=== PATIENT | female | born 1980 | race Hispanic/Latino ===

== ENCOUNTER 2017-04-16 13:38 | Outpatient (CLI) | payer MEDICARE, MEDICAID ==
[~2017-04-16 13:38] MED LIST: Gadobenate Dimeglumine 529 MG/1 ML (20ML VIAL) ONE
--- NOTE | 2017-04-16 16:25 | MRI ---
MRI LUMBAR SPINE WITH AND WITHOUT CONTRAST: 04/16/17 Multiplanar and multisequential imaging lumbar spine obtained. HISTORY: Lumbar radiculopathy. Low back pain. Radiation to the left leg. History of microdiscectomy in 2011. COMPARISON: Comparison made to MRI of lumbar spine dated 06/07/11. That exam revealed focal disc protrusion paracentrally to the left at L5-S1. FINDINGS: The lumbar vertebral bodies maintain height and alignment. Degenerative changes are prominent at the L2-3 level. There is loss of disc space and there are degenerative end plate changes at this level an d anterior hypertrophic spurring at this level. The degenerative changes at this level have progresse d since 2012. There is also degenerative disc changes at L5-S1 with loss of disc space and mild degenerative end pl ate changes and hypertrophic change. Evidence of posterior laminectomy on the left at this level. At L1-2, no disc bulge or protrusion. No central canal or foraminal stenosis. At L2-3, degenerative disc changes as discussed above. Mild diffuse disc bulge, slightly more promine nt than on the prior study. This abuts and mildly flattens the thecal sac and is associated with mild facet arthrosis. Very mild central canal stenosis. At L3-4, no significant disc bulge or protrusion. No central canal or foraminal stenosis. At L4-5, minimal disc bulge. Mild facet arthrosis and hypertrophy. Mild central canal stenosis. No si gnificant foraminal stenosis. At L5-S1, there is abnormal signal in the anterior spinal canal on the left which does show enhanceme nt suggesting postoperative scar from the prior discectomy. This signal does compress the thecal sac and also appears to displace the traversing left S1 nerve root. There is a disc osteophyte complex pr ojecting laterally to the left which appears to contact the exiting left L5 nerve root. IMPRESSION: Discectomy changes on the left at L5-S1. Signal in the anterior spinal canal on the left shows enhanc ement consistent with postoperative scar. This signal however, does mildly displaced the traversing l eft S1 nerve root. In addition, there is a disc osteophyte complex projecting laterally to the left a t this level which appears to contact the exiting left L5 nerve root. Other findings as described above. POS: [facility]
== END 2017-04-16 13:39 | disposition home or self-care (01) ==
LOC: TBSIIMAG 13:38
PROVIDERS: ATTEND Neurological Surgery
DX: M54.16 Radiculopathy, lumbar region (principal); M25.78 Osteophyte, vertebrae; R93.7 Abnormal findings on diagnostic imaging of other parts of musculoskeletal system
CPT/HCPCS: 72158; A9579

== ENCOUNTER 2017-05-12 06:20 | Inpatient (IN) | payer MEDICARE, OTHER ==
[2017-05-08 15:00] VITALS: BMI 34.9
[2017-05-12] MEDS ORDERED: Sodium Chloride 0.9% 10 ML ONE (06:26)
[2017-05-12] MEDS ORDERED: Thrombin 5000 UNITS/5 ML VIAL ONE (06:26)
[2017-05-12] MEDS ORDERED: Midazolam HCl 2 mg/2 ml Vial ONE (06:33)
[2017-05-12] MEDS ORDERED: Fentanyl 100 MCG/2 ML VIAL ONE ×2 (06:33→09:03)
[2017-05-12 06:51] LABS: #Basophils 0.1 thou/uL (0.0-0.2); #Eosinphils 0.7 thou/uL (0.0-0.7); #Lymphocytes 4.7 thou/uL (1.20-3.40); #Monocytes 0.5 thou/uL (0.11-0.59); #Neutrophils 7.3 thou/uL (1.40-6.50); %Basophils 0.9 % (0.0-1.0); %Eosinophils 5.4 % (0.0-10.0); %Lymphocytes 34.9 % (21.0-51.0); %Monocytes 3.8 % (0.0-10.0); Hemoglobin 13.8 g/dL (12.0-16.0); Mean Corpuscular HGB CONC 35.4 g/dL (32.0-36.0); Mean Corpuscular Hemoglobin 31.9 pg (27.0-31.0); Mean Corpuscular Volume 89.9 fl (81.0-99.0); Platelet Count 168 thou/uL (130-400); Red Blood Cell (RBC) Count 4.33 mill/uL (4.20-5.40); White Blood Cell (WBC) Count 13.3 thou/uL (4.8-10.8)
[2017-05-12] MEDS ORDERED: CEFAZOLIN/Water 2 GM/20 ML SYRINGE ONE (07:04)
[2017-05-12 07:05] LABS: BHCG - Serum Negative (NEGATIVE); Pregs Control Background? CLEAR/WHITE (CLR/WHITE); Pregs Control Bar Appear? YES (CONTROL BAR)
[2017-05-12 07:13] LABS: Anion Gap 11 mmol/L (10-20); BUN (Urea Nitrogen) 17 mg/dL (7.0-18.7); Calc. Creatinine Clearance 153 mL/min (70-130); Calcium 8.7 mg/dL (7.8-10.44); Carbon Dioxide 27 mmol/L (22-29); Chloride 101 mmol/L (98-107); Estimated GFR-MDRD 75; Glucose 223 mg/dL (70-105); Potassium 3.4 mmol/L (3.5-5.1); Sodium 136 mmol/L (136-145)
[2017-05-12] MEDS ORDERED: Morphine 4 MG/ML VIAL ONE ×2 (09:24→09:39)
--- NOTE | 2017-05-12 09:37 | OP ---
DATE OF PROCEDURE: 05/12/2017 SURGEON: Rambo Gray M.D. REGISTERED NURSE SURGICAL SERVICES: None. PROCEDURE: Left L5-S1 laminectomy, facetectomy, foraminotomy, interbody arthrodesis, intravertebral biomechanical device, local morselized autograft, demineralized bone matrix, posterolateral arthrodes is, and pedicle screw instrumentation left L5-S1. PROCEDURE IN DETAIL: The patient was brought into the operating room and intubated. She was rolled in the prone position on gel-filled chest rolls. Incision made exposing L5 and S1 and our level was confirmed by x-ray. We identified the previous scar in the left L5-S1 hemilaminectomy. We performed a left facetectomy, laminectomy, and foraminotomy and then removed bulging intervertebral disk mater ial, completely decompressing left S1 nerve root. The disk itself was incised and debrided completel y and the bony endplates decorticated for the purpose of arthrodesis. An appropriately-sized intrave rtebral biomechanical PEEK device was brought into the field, filled with demineralized bone and loca l morselized autograft and tapped into place securely at L5-S1. Next, pedicle screws were brought in to the field and filled and placed at left L5 and left S1 using lateral fluoroscopic guidance and the positioning was confirmed with x-ray. A foster was secured between the screws, connected by nuts, whic h were final tightened. The wound was then extensively irrigated, immaculate hemostasis was secured. A combination of demineralized bone matrix, local morselized autograft was laid over the lamina and posterolateral surfaces for the purpose of arthrodesis. Vancomycin powder was applied and the wound was then closed in anatomic layers.
[2017-05-12] MEDS ORDERED: PHENYLEPHRINE-NS 100 MCG/ML 10 ML SYRINGE ONE (10:36)
[2017-05-12] MEDS ORDERED: Lidocaine 1% PF 5 ML VIAL ONE (10:36)
[2017-05-12] MEDS ORDERED: Ketorolac Tromethamine 30 MG/ML VIAL ONE (10:36)
[2017-05-12] MEDS ORDERED: ePHEDrine/0.9% NaCl/PF SYRINGE 50 mg/10 ml ONE (10:36)
[2017-05-12] MEDS ORDERED: PROPOFOL 200 MG/20 ML VIAL ONE (10:36)
[2017-05-12] MEDS ORDERED: diphenhydrAMINE 50 MG/ML VIAL ONE (10:36)
[2017-05-12] MEDS ORDERED: Ondansetron HCl/PF 4 MG/2 ML Vial ONE (10:36)
[2017-05-12] MEDS ORDERED: Glycopyrrolate 0.2 MG/ML 5 ML SYRINGE ONE (10:36)
[2017-05-12] MEDS ORDERED: HYDROcodone/Acetaminophen 5/325 mg Tablet ONE (11:00)
--- NOTE | 2017-05-12 22:08 | EKG ---
Test Reason : PREOP Blood Pressure : / mmHG Vent. Rate : 079 BPM Atrial Rate : 079 BPM P-R Int : 154 ms QRS Dur : 082 ms QT Int : 400 ms P-R-T Axes : 048 007 001 degrees QTc Int : 458 ms Normal sinus rhythm Minimal voltage criteria for LVH, may be normal variant Possible Inferior infarct , age undetermined Abnormal ECG When compared with ECG of 13-FEB-2012 10:16, No significant change was found Confirmed by WILLY HOUSER M.D. ([id number]) on 05/12/2017 10:08:31 PM Referred By: ZAIN Confirmed By:WILLY HOUSER M.D.
== END 2017-05-12 11:30 | disposition home or self-care (01) | DRG 460 ==
LOC: SURG A 06:20
PROVIDERS: ADMIT Neurological Surgery; ATTEND Neurological Surgery
PROC: 0SG30AJ Fusion of Lumbosacral Joint with Interbody Fusion Device, Posterior Approach, Anterior Column, Open Approach (ICD-10-PCS; principal; 2017-05-12)
PROC: 0ST40ZZ Resection of Lumbosacral Disc, Open Approach (ICD-10-PCS; 2017-05-12)
DX: M51.17 Intervertebral disc disorders with radiculopathy, lumbosacral region (principal); G62.9 Polyneuropathy, unspecified; M54.16 Radiculopathy, lumbar region; E11.9 Type 2 diabetes mellitus without complications; E66.9 Obesity, unspecified; F32.9 Major depressive disorder, single episode, unspecified; Z68.35 Body mass index [BMI] 35.0-35.9, adult; F17.210 Nicotine dependence, cigarettes, uncomplicated; E78.5 Hyperlipidemia, unspecified
CPT/HCPCS: 36415; 76001; 80048; 84703; 85025; 93005; 93010; 96374; A4216; C1713; C1768; J0131; J1200; J1885; J2001; J2250; J2270; J2405; J2704; J3010; J3370; J3490

== ENCOUNTER 2017-05-27 11:06 | Outpatient (CLI) | payer MEDICARE, MEDICAID ==
--- NOTE | 2017-05-27 13:23 | RAD ---
LUMBAR SPINE TWO VIEWS: History: Follow up to surgery. Comparison: 04-05-07 plain film examination, 04-26-17 MRI study. FINDINGS: Patient has had placement of left unilateral pedicle screw at the L5-S1 level. Markers of disc implan t are in the confines of the narrowed L5-S1 disc level. There is marked disc narrowing also seen at L 2-3. Pedicles are intact. Minimal scoliotic change convex to the left. IMPRESSION: Post-operative changes with left unilateral pedicle screws placed at L5-S1. POS: [facility]
== END 2017-05-27 11:07 | disposition home or self-care (01) ==
LOC: TBSIIMAG 11:06
PROVIDERS: ATTEND Neurological Surgery
DX: M54.16 Radiculopathy, lumbar region (principal); Z98.1 Arthrodesis status
CPT/HCPCS: 72100

== ENCOUNTER 2017-07-16 14:21 | Inpatient (IN) | payer MEDICARE, MEDICAID ==
[2017-07-16 14:41] LABS: #Basophils 0.1 thou/uL (0.0-0.2); #Lymphocytes 0.8 thou/uL (1.20-3.40); #Monocytes 0.2 thou/uL (0.11-0.59); #Neutrophils 6.1 thou/uL (1.40-6.50); %Basophils 0.8 % (0.0-1.0); %Eosinophils 0.2 % (0.0-10.0); %Lymphocytes 10.6 % (21.0-51.0); %Monocytes 2.7 % (0.0-10.0); %Neutrophils 85.7 % (42.0-75.0); Mean Corpuscular HGB CONC 33.3 g/dL (32.0-36.0); Mean Corpuscular Hemoglobin 31.6 pg (27.0-31.0); Mean Corpuscular Volume 95.2 fl (81.0-99.0); Mean Platelet Volume 10.6 fL (7.4-10.4); Platelet Count 99 thou/uL (130-400); RBC Distribution Width 12.6 % (11.5-14.5); Red Blood Cell (RBC) Count 1.88 mill/uL (4.20-5.40); White Blood Cell (WBC) Count 7.2 thou/uL (4.8-10.8)
[2017-07-16] MEDS ORDERED: Dexamethasone 10 MG/ML VIAL ONE (14:41)
[2017-07-16] MEDS ORDERED: Albuterol Sulfate 2.5 mg/3 ml Neb ONE (14:43)
[2017-07-16] MEDS ORDERED: Albuterol Sulfate 2.5 mg/0.5 ml Neb ONE ×3 (14:43)
[2017-07-16 14:47] LABS: INR-International Normal Ratio 1.4; PTT 32.4 SEC (22.9-36.1)
[2017-07-16 14:52] LABS: pH, Arterial 7.23 (7.35-7.45)
[2017-07-16 14:52] LABS: ALT (SGPT) 295 U/L (8-55); AST (SGOT) 656 U/L (5-34); Albumin 1.1 g/dL (3.5-5.0); Alkaline Phosphatase 48 U/L (40-150); Anion Gap 7 mmol/L (10-20); BUN (Urea Nitrogen) 11 mg/dL (7.0-18.7); Bilirubin, Total 0.2 mg/dL (0.2-1.2); Calc. Creatinine Clearance 0 mL/min (70-130); Estimated GFR-MDRD Greater than 90; Globulin 1.2 g/dL (2.4-3.5); Glucose 404 mg/dL (70-105); Protein, Total 2.3 g/dL (6.0-8.3); Sodium 142 mmol/L (136-145)
[2017-07-16 14:53] LABS: Actual Bicarbonate (HCO3a) 30.7 mEq/L (22-28); Analyzer IN Cardio ER; Base Excess (BEa) 1.1 mEq/L (-2.0 to +3.0); CO2 Tension 75.3 mmHg (35.0-45.0); Calcium, Ionized 1.2 mmol/L (1.12-1.30); Hemoglobin (Hb) 13.3 g/dL (12.0-16.0); O2 Tension (PaO2) 83.1 mmHg (80.0-100.0); Puncture Site RRA
[2017-07-16 14:54] LABS: ALV-art Gradient 535.775 (0-20)
[2017-07-16 14:56] LABS: Calcium 2.8 mg/dL (7.8-10.44); Carbon Dioxide 9 mmol/L (22-29); Chloride 128 mmol/L (98-107); Potassium 1.7 mmol/L (3.5-5.1)
[2017-07-16 15:05] LABS: Bilirubin Negative (Negative); Blood, Urine Moderate (Negative); Clarity CLOUDY (Clear); Glucose, Urine (Dipstick) >=1000 mg/dL (Negative); Leukocyte Negative (Negative); Nitrite Negative (Negative); Protein, Urine (Dipstick) 100 mg/dL (Neg-Trace); Specific Gravity, Urine 1.023 (1.002-1.036); Urobilinogen 0.2 mg/dL (0.2-1.0)
[2017-07-16 15:05] LABS: Acetaminophen Less than 6.0 mcg/mL (10.0-30.0); Alcohol Less than 10 mg/dL (Less than 10); CK (CPK) 157 U/L (29-168); Salicylate Less than 8.0 mg/dL (15.0-30.0)
[2017-07-16 15:06] LABS: Pathc Cast-AUWi Flag 0.58 (0-2.49); RBC/HPF 0-3 HPF (0-3)
[2017-07-16 15:09] LABS: BHCG - Serum Negative (NEGATIVE); Pregs Control Background? CLEAR/WHITE (CLR/WHITE); Pregs Control Bar Appear? YES (CONTROL BAR)
[2017-07-16 15:09] LABS: CKMB 1.2 ng/mL (0-6.6); Troponin I 0.035 ng/mL (< 0.028)
[2017-07-16 15:15] LABS: Amphetamine Not Detected (NotDetected); Barbiturates Screen Not Detected (NotDetected); Benzodiazepine Screen Not Detected (NotDetected); Cocaine Metabolite Screen Not Detected (NotDetected); Medtox Control Line Valid? VALID (VALID); Medtox Reader # READER 1; Methadone Not Detected (NotDetected); Methamphetamine Not Detected (NotDetected); Opiate Screen Not Detected (NotDetected); Oxycodone Screen Not Detected (NotDetected); Phencyclidine (PCP) Not Detected (NotDetected); THC/Cannabinoid Screen Not Detected (NotDetected); Tricyclic Screen Not Detected (NotDetected)
--- NOTE | 2017-07-16 15:23 | RAD ---
CHEST ONE VIEW: HISTORY: A 36-year-old female with a history of respiratory distress and high blood sugar. COMPARISON: 07/13/2017 FINDINGS: Monitor leads overly the chest. NG and endotracheal tubes are in satisfactory locations. There are some confluent parenchymal changes in the right upper lobe and right lower lobe, and probable right p leural effusion, as well as patchy alveolar and interstitial parenchymal changes in the perihilar reg ions bilaterally, new from prior study (evidence for bilateral pneumonia). Heart size is at least lia rderline enlarged. IMPRESSION: Interval development of alveolar confluent parenchymal changes in the right upper lobe and right lowe r lobe and patchy alveolar and interstitial opacities in both lungs, suspicious for developing bilate ral pneumonia with probable associated with pleural effusion. Continued short-term followup for clearing. POS: [facility]
[2017-07-16 15:26] LABS: Bacteria/HPF 1+ HPF (None Seen)
[2017-07-16] MEDS ORDERED: Magnesium Sulfate 2 GM/100 ML BAG ONE (15:26)
[2017-07-16 15:27] LABS: Hyaline Casts/LPF 0-3 HYALINE CAST LPF (0-3 Hyaline); Renal Epithelial None Seen HPF (0-3); Transitional Epithelial NONE SEEN HPF (0-3)
[2017-07-16] MEDS ORDERED: Norepinephrine 8 MG/0.9% NS 250 ML ONE (15:30)
--- NOTE | 2017-07-16 15:30 | CT ---
BRAIN CT WITHOUT IV CONTRAST: HISTORY: A 36-year-old female with a history of respiratory distress and high blood sugar, with three attempts at intubation. FINDINGS: No focal mass or midline shift. No intraaxial or extraaxial hemorrhage. The sinuses and mastoids ar e clear of acute process. There are some scattered chronic white matter ischemic changes. There is some sinus mucosal disease, as well as fluid, within the ethmoid, maxillary, and sphenoid sinuses. T he mastoids appear clear. IMPRESSION: 1. Fluid and sinus mucosal disease involving the ethmoid, maxillary, and sphenoid sinuses. The mast oids are clear. 2. Atrophy and chronic white matter ischemic change without mass or bleed. POS: [facility]
[2017-07-16 15:57] LABS: Actual Bicarbonate (HCO3a) 20.9 mEq/L (22-28); Base Excess (BEa) -6.6 mEq/L (-2.0 to +3.0); CO2 Tension 50.6 mmHg (35.0-45.0); Hematocrit-ABG 40.5 % (36.0-47.0); O2 Tension (PaO2) 79.3 mmHg (80.0-100.0); pH, Arterial 7.24 (7.35-7.45)
[2017-07-16 15:58] LABS: Analyzer IN Cardio ER; Puncture Site RBA
[2017-07-16] MEDS ORDERED: Cefepime 2 GM in Sodium Chloride 0.9% 100 ML IVPB ONE (16:00)
[2017-07-16] MEDS ORDERED: Sodium Chloride 0.9% 1,000 ML IV PRN ×8 (16:09→17:28)
[2017-07-16] MEDS ORDERED: Dextrose 5 %-0.45 % NaCl 1,000 ML IV PRN ×2 (16:09→17:28)
[2017-07-16] MEDS ORDERED: CCU Electrolyte Replacement 1 EACH IVPB ONE ×2 (16:09→17:28)
[2017-07-16] MEDS ORDERED: Potassium Phosphate 12 MMOL in Sodium Chloride 0.9% 250 ML 250 ML IV PRN (16:15)
[2017-07-16] MEDS ORDERED: Potassium Chloride 40 MEQ in Premix Bag 1 BAG IVPB PRN (16:15)
[2017-07-16] MEDS ORDERED: Potassium Chloride 40 MEQ in Sodium Chloride 0.9% 250 ML 250 ML IVPB PRN (16:15)
[2017-07-16] MEDS ORDERED: Potassium Phosphate 15 MMOL in Sodium Chloride 0.9% 250 ML 250 ML IV PRN (16:15)
[2017-07-16] MEDS ORDERED: Potassium Phosphate 9 MMOL in Sodium Chloride 0.9% 100 ML IVPB PRN (16:15)
[2017-07-16] MEDS ORDERED: Potassium Chloride 20 MEQ TAB PO PRN (16:15)
[2017-07-16] MEDS ORDERED: Magnesium 2 GM/NS 0.9% 100 ML 2 GM in Premix Bag 1 BAG IVPB PRN (16:15)
[2017-07-16] MEDS ORDERED: CCU ELECTROLYTE REPLACEMENT PROTOCOL FS PRN (16:15)
[2017-07-16] MEDS ORDERED: Magnesium Oxide 400 MG TAB PO PRN ×2 (16:15)
[2017-07-16 16:29] LABS: #Eosinphils 0.1 thou/uL (0.0-0.7); #Lymphocytes 1.1 thou/uL (1.20-3.40); #Monocytes 0.3 thou/uL (0.11-0.59); #Neutrophils 10.8 thou/uL (1.40-6.50); %Basophils 0.2 % (0.0-1.0); %Eosinophils 0.6 % (0.0-10.0); %Monocytes 2.6 % (0.0-10.0); %Neutrophils 87.7 % (42.0-75.0); Hemoglobin 12.3 g/dL (12.0-16.0); Mean Corpuscular HGB CONC 32.5 g/dL (32.0-36.0); Mean Corpuscular Hemoglobin 31.5 pg (27.0-31.0); Mean Corpuscular Volume 96.6 fl (81.0-99.0); Platelet Count 171 thou/uL (130-400); RBC Distribution Width 13.1 % (11.5-14.5); Red Blood Cell (RBC) Count 3.92 mill/uL (4.20-5.40); White Blood Cell (WBC) Count 12.3 thou/uL (4.8-10.8)
[2017-07-16 16:39] LABS: ALT (SGPT) 863 U/L (8-55); AST (SGOT) 2115 U/L (5-34); Albumin 3.1 g/dL (3.5-5.0); Alkaline Phosphatase 135 U/L (40-150); Anion Gap 23 mmol/L (10-20); BUN (Urea Nitrogen) 25 mg/dL (7.0-18.7); Bilirubin, Total 0.6 mg/dL (0.2-1.2); Calc. Creatinine Clearance 0 mL/min (70-130); Calcium 8.5 mg/dL (7.8-10.44); Carbon Dioxide 20 mmol/L (22-29); Chloride 93 mmol/L (98-107); Estimated GFR-MDRD 20; Globulin 3.5 g/dL (2.4-3.5); Glucose 826 mg/dL (70-105); Potassium 3.6 mmol/L (3.5-5.1); Protein, Total 6.6 g/dL (6.0-8.3); Sodium 132 mmol/L (136-145)
--- NOTE | 2017-07-16 17:03 | HP ---
PRIMARY CARE PROVIDER: Previously was Dr. Nancy Tee, Referred to the [facility] by [facility]. HISTORY OF PRESENT ILLNESS: The patient was found down today, brought to the emergency room where jhonatan castle was found to be in extremis, sedated and intubated. She gives a history of 2 days of having a cold -like illness. She was seen in the emergency room 2 days ago with asthma and cough. The patient was treated for asthma, improved, went home. She is currently intubated, unresponsive. PAST MEDICAL HISTORY: Pertinent for diabetes mellitus type 2, asthma, history of thyroid CA post I-1 31 ablation, bipolar illness, hypertension, cholecystectomy. CURRENT MEDICATIONS: Atrovent inhaler, levothyroxine 125 mcg a day, Humulin U-500 concentrated 30 mL subq 3 times a day, gabapentin 800 mg 3 times a day, Trileptal 600 mg 2 a day, fluoxetine 20 mg a da y, Buspar 30 mg a day. ALLERGIES: No known drug allergies. FAMILY HISTORY: Positive for diabetes in mother, grandmother, and aunt. SOCIAL HISTORY: , smokes tobacco. Denies alcohol. CODE STATUS: FULL. REVIEW OF SYSTEMS: Unobtainable due to her intubated, unresponsive status. PHYSICAL EXAMINATION: VITAL SIGNS: Blood pressure 100/70 on pressors, pulse 100, respirations on vent, temperature 98. HEENT: Reveals pupils equal, reactive. Negative doll's eyes. Sclerae white. Tympanic membranes cl ear. Nose is clear. Oral mucous membranes are dry. NECK: No jugular venous distention, adenopathy or thyromegaly. CHEST: Diffuse coarse breath sounds. Rales in all lung ayala, right greater than left. HEART: Regular rate and rhythm. First and second heart sounds are diminished. No murmurs were appr eciated. ABDOMEN: Soft, bowel sounds are normal. There is no hepatosplenomegaly, no mass, no rebound. EXTREMITIES: Reveal 1+ edema, no cyanosis or clubbing. PULSES: Carotid, radial, and femoral pulses palpable. Pedal pulses were not palpable. SKIN: She has a deep ulcer on the plantar surface of her right great toe with a dark eschar. She lima s evidence of amputation of her left great toe subtotally with an eschar on the end of it. Skin was otherwise warm and dry. HEME/LYMPH: Reveals no tender or swollen lymph nodes in axilla, inguinal or cervical area. NEUROLOGICAL: Face is symmetric. Negative doll's eyes. Pupils reactive. Deep tendon reflexes esse ntially absent. Toes neutral. Muscle tone normal. X-RAY FINDINGS: Chest x-ray done 3 days ago, borderline cardiomegaly, possible pulmonary vascular co ngestion, reviewed by me. Current chest x-ray heavily over penetrated, right upper lobe pneumonia, r ight lower lobe pneumonia, infiltrates on the left side, rotated, reviewed by me. LABORATORY DATA: White count 7.2, hemoglobin 6.0, platelet count 99,000. INR 1.48, PTT 32. Blood g as pH 7.23, pCO2 of 53 on 100% O2, 5 cm PEEP. Chemistry: Sodium 142, potassium 1.7, chloride 128, C O2 9, calcium is listed as 2.8. Lactic acid 3.4, AST 656, ALT 295. BNP 115. TSH 6.7. ADMITTING DIAGNOSES: Acute respiratory failure, hypoxic and hypercapnic diabetic ketoacidosis, bilat eral pneumonia, lactic acidosis, septic shock, bipolar syndrome, hypertension. I have discussed this case at length with Dr. Benson, who will manage the pneumonia and respiratory failure. Her laboratory is dramatically abnormal and there is some concern about it being unreliable CBC and c omprehensive lab profile have been reordered. I have not found the EKG yet to look at and will. She is on a DKA protocol with IV insulin and q.1 hour blood sugars. She is on piperacillin, Levaquin. Blood and urine cultures have been obtained. Electrolyte profile has been ordered. She is on 150 mL normal saline IV fluids. She is on frequent laboratories with basic metabolic profile, blood sugars . She is on ventilation sedation protocol. Prognosis is guarded. She will be on critical care unit , followed closely by myself and Dr. Benson. The situation has been discussed with the family.
[2017-07-16] MEDS ORDERED: Sodium Chloride 0.9% 1,000 ML IV SCH ×2 (17:28)
[2017-07-16] MEDS ORDERED: D5 1/2 NS w/20 mEq KCL 1,000 ML IV PRN (17:28)
[2017-07-16] MEDS ORDERED: Acetaminophen 650 MG Suppository PR PRN (17:28)
[2017-07-16] MEDS ORDERED: NS 0.9% w/ 20 MEQ KCL 1,000 ML IV PRN ×2 (17:28)
[2017-07-16] MEDS ORDERED: Ondansetron HCl/PF 4 MG/2 ML Vial IVP PRN (17:28)
[2017-07-16] MEDS ORDERED: Norepinephrine 8 MG/0.9% NS 250 ML IVPB SCH (17:28)
--- NOTE | 2017-07-16 18:08 | RAD ---
ONE VIEW CHEST: 07/16/17 COMPARISON: 07/16/17 at 2:46 p.m. HISTORY: Sepsis. FINDINGS: Redemonstration of endotracheal and nasogastric tube. Persistent opacification in the lung parenchyma . No significant interval change. IMPRESSION: No significant interval change. POS: [facility]
[2017-07-16 18:19] LABS: Band 15 % (5-11); Hemoglobin 12.7 g/dL (12.0-16.0); Lymphocytes 2 % (21-51); MDiff Complete? YES; Mean Corpuscular HGB CONC 32.8 g/dL (32.0-36.0); Mean Corpuscular Hemoglobin 31.5 pg (27.0-31.0); Mean Corpuscular Volume 96.2 fl (81.0-99.0); Mean Platelet Volume 10.6 fL (7.4-10.4); Monocytes 2 % (0-10); Neutrophil 80 % (42-75); PLT Morphology Comment Appears Adequate; Platelet Count 167 thou/uL (130-400); RBC Distribution Width 13.2 % (11.5-14.5); Reactive Lymphocytes 1 % (0-10); Red Blood Cell (RBC) Count 4.03 mill/uL (4.20-5.40); White Blood Cell (WBC) Count 12.4 thou/uL (4.8-10.8)
[2017-07-16 18:22] LABS: ALT (SGPT) 1047 U/L (8-55); AST (SGOT) 2840 U/L (5-34); Albumin 3.1 g/dL (3.5-5.0); Alkaline Phosphatase 140 U/L (40-150); Anion Gap 20 mmol/L (10-20); BUN (Urea Nitrogen) 23 mg/dL (7.0-18.7); Bilirubin, Total 0.7 mg/dL (0.2-1.2); Calc. Creatinine Clearance 57 mL/min (70-130); Calcium 8.3 mg/dL (7.8-10.44); Carbon Dioxide 18 mmol/L (22-29); Chloride 98 mmol/L (98-107); Estimated GFR-MDRD 23; Globulin 3.7 g/dL (2.4-3.5); Potassium 3.2 mmol/L (3.5-5.1); Protein, Total 6.8 g/dL (6.0-8.3); Sodium 133 mmol/L (136-145)
[2017-07-16] MEDS ORDERED: DISCONTINUE PREVIOUS NARCOTIC PAIN MEDICATIONS AND BENZODIAZEPINES FS SCH (18:26)
[2017-07-16] MEDS ORDERED: Propofol BOLUS 1,000 MG/100 ML VIAL IV PRN (18:26)
[2017-07-16] MEDS ORDERED: Morphine 4 MG/ML VIAL SLOW IVP PRN (18:26)
[2017-07-16] MEDS ORDERED: Fentanyl BOLUS 250 ML IVPB PRN (18:26)
[2017-07-16 18:36] LABS: Glucose 809 mg/dL (70-105)
[2017-07-16] MEDS: Piperacillin/Tazobactam 3.375 GM in Sodium Chloride 0.9% 100 ML IVPB SCH (18:53)
[2017-07-16] MEDS: Propofol 1,000 MG/100 ML VIAL IV PRN (18:53)
[2017-07-16 19:24] LABS: Lactic Acid 9.8 mmol/L (0.5-2.2)
[2017-07-16] MEDS: fentaNYL Citrate/PF 2,000 MCG in Sodium Chloride 0.9% 60 ML IV SCH (19:46)
[2017-07-16 19:48] LABS: Glucose 760 mg/dL (70-105)
[2017-07-16] MEDS ORDERED: Sodium Bicarb 50 MEQ/50 ML Abboject 8.4% SYRINGE ONE (20:00)
[2017-07-16] MEDS ORDERED: EPINEPHrine 1 MG/10 ML Abboject SYRINGE ONE (20:00)
[2017-07-16] MEDS ORDERED: Prevnar 13-Val Conj/PF 0.5 ML SYRINGE IM ONE (21:00)
[2017-07-16 21:06] LABS: Glucose Accucheck Confirmation 785 mg/dl (70-105)
[2017-07-16] MEDS: NS 0.9% w/ 20 MEQ KCL 1,000 ML IV PRN ×2 (21:12→23:27)
[2017-07-16 21:44] LABS: Anion Gap 17 mmol/L (10-20); BUN (Urea Nitrogen) 23 mg/dL (7.0-18.7); Calc. Creatinine Clearance 58 mL/min (70-130); Calcium 8.1 mg/dL (7.8-10.44); Carbon Dioxide 19 mmol/L (22-29); Chloride 103 mmol/L (98-107); Estimated GFR-MDRD 23; Potassium 3.4 mmol/L (3.5-5.1); Sodium 136 mmol/L (136-145)
[2017-07-16 21:53] LABS: Glucose 740 mg/dL (70-105)
[2017-07-16 22:08] LABS: Lactic Acid 9.6 mmol/L (0.5-2.2)
[2017-07-16 22:26] LABS: Glucose Accucheck Confirmation 767 mg/dl (70-105)
[2017-07-16 22:56] LABS: Actual Bicarbonate (HCO3a) 19.8 mEq/L (22-28); Base Excess (BEa) -6.5 mEq/L (-2.0 to +3.0); CO2 Tension 42.3 mmHg (35.0-45.0); Hematocrit-ABG 36.6 % (36.0-47.0); Hemoglobin (Hb) 11.4 g/dL (12.0-16.0); O2 Tension (PaO2) 86.8 mmHg (80.0-100.0); pH, Arterial 7.29 (7.35-7.45)
[2017-07-16 22:57] LABS: Calcium, Ionized 1.1 mmol/L (1.12-1.30); Puncture Site RRA
[2017-07-16 22:58] LABS: ALV-art Gradient 568.325 (0-20)
[2017-07-16] MEDS ORDERED: Sodium Chloride 0.9% 500 ML IV SCH (23:00)
[2017-07-16 23:36] LABS: Glucose Accucheck Confirmation 730 mg/dl (70-105)
--- NOTE | 2017-07-17 00:06 | PDOC.EVN ---
Event Note - Event Note Event Note: Pt with persistent hyperglycemia despite initiation of protocol Continue with IVF per protocol anion gap appears to be improving B hydroxybutarate is neg inc insulin gtt to 14U/hr since no bolus was given in ER continue serial accuchecks uptitrate as needed continue serial BMPs concern for progressive transaminitis and elev lactic acid US abd ? intra-abdominal pathology that is independent of patient's known sepsis continue to closely monitor +bs, soft nonttp abd on examination
[2017-07-17] MEDS: Piperacillin/Tazobactam 3.375 GM in Sodium Chloride 0.9% 100 ML IVPB SCH ×5 (00:18→23:42)
[2017-07-17 00:42] LABS: Anion Gap 15 mmol/L (10-20); BUN (Urea Nitrogen) 20 mg/dL (7.0-18.7); Calc. Creatinine Clearance 69 mL/min (70-130); Calcium 7.8 mg/dL (7.8-10.44); Carbon Dioxide 20 mmol/L (22-29); Chloride 109 mmol/L (98-107); Estimated GFR-MDRD 28; Potassium 3.8 mmol/L (3.5-5.1); Sodium 140 mmol/L (136-145)
[2017-07-17 00:46] LABS: Glucose 667 mg/dL (70-105)
[2017-07-17 01:39] LABS: Glucose Accucheck Confirmation 628 mg/dl (70-105)
[2017-07-17 02:48] LABS: Anion Gap 15 mmol/L (10-20); BUN (Urea Nitrogen) 19 mg/dL (7.0-18.7); Calc. Creatinine Clearance 73 mL/min (70-130); Calcium 8.1 mg/dL (7.8-10.44); Carbon Dioxide 21 mmol/L (22-29); Chloride 111 mmol/L (98-107); Estimated GFR-MDRD 30; Potassium 3.9 mmol/L (3.5-5.1); Sodium 143 mmol/L (136-145)
[2017-07-17 03:03] LABS: Glucose 579 mg/dL (70-105)
[2017-07-17 03:46] LABS: ALT (SGPT) 879 U/L (8-55); AST (SGOT) 1088 U/L (5-34); Albumin 2.8 g/dL (3.5-5.0); Alkaline Phosphatase 105 U/L (40-150); Anion Gap 13 mmol/L (10-20); BUN (Urea Nitrogen) 19 mg/dL (7.0-18.7); Bilirubin, Total 0.4 mg/dL (0.2-1.2); Calc. Creatinine Clearance 77 mL/min (70-130); Calcium 7.8 mg/dL (7.8-10.44); Carbon Dioxide 21 mmol/L (22-29); Chloride 113 mmol/L (98-107); Estimated GFR-MDRD 32; Globulin 3.2 g/dL (2.4-3.5); Glucose 526 mg/dL (70-105); Sodium 143 mmol/L (136-145)
[2017-07-17] MEDS: NS 0.9% w/ 20 MEQ KCL 1,000 ML IV PRN ×2 (04:00→07:14)
[2017-07-17 05:10] LABS: Lactic Acid 2.6 mmol/L (0.5-2.2)
[2017-07-17 05:41] LABS: Band 23 % (5-11); Hemoglobin 10.8 g/dL (12.0-16.0); Lymphocytes 13 % (21-51); MDiff Complete? YES; Mean Corpuscular HGB CONC 34.2 g/dL (32.0-36.0); Mean Corpuscular Volume 93.7 fl (81.0-99.0); Mean Platelet Volume 10.7 fL (7.4-10.4); Monocytes 1 % (0-10); Neutrophil 63 % (42-75); Platelet Count 153 thou/uL (130-400); Red Blood Cell (RBC) Count 3.38 mill/uL (4.20-5.40); White Blood Cell (WBC) Count 10.3 thou/uL (4.8-10.8)
[2017-07-17] MEDS: Ibuprofen 100 MG/5 ML UDCUP PO PRN ×2 (06:14→11:56)
[2017-07-17 07:13] LABS: Base Excess (BEa) -2.1 mEq/L (-2.0 to +3.0); CO2 Tension 40.5 mmHg (35.0-45.0); Calcium, Ionized 1.1 mmol/L (1.12-1.30); Hematocrit-ABG 29.5 % (36.0-47.0); Hemoglobin (Hb) 10.7 g/dL (12.0-16.0); O2 Tension (PaO2) 83.7 mmHg (80.0-100.0); pH, Arterial 7.37 (7.35-7.45)
[2017-07-17 07:14] LABS: ALV-art Gradient 507.375 (0-20); Puncture Site RRA
--- NOTE | 2017-07-17 07:57 | ULT ---
SONOGRAM ABDOMEN COMPLETE: HISTORY: Upper abdomen pain. Abnormal liver function tests. FINDINGS: Gallbladder is not visualized. Exam is compromised with patient on a ventilator. The common duct is 0.3 cm. Liver is echogenic without focal mass or intrahepatic biliary dilatation. No free fluid. The spleen, kidneys, and visualized portions of the abdominal aorta and IVC are unremarkable. Pancre as is mostly obscured. IMPRESSION: Hepatosteatosis. No acute abnormalities are otherwise demonstrated. POS: [facility]
--- NOTE | 2017-07-17 08:19 | RAD ---
CHEST 1 VIEW: Date: 07/17/17 HISTORY: Dyspnea. Follow-up. COMPARISON: 07/16/17. FINDINGS: Cardiac silhouette is magnified and partially obscured by patchy bibasilar infiltrates, which appear slightly more pronounced due to more shallow inspiration. Pulmonary vasculature is engorged. Mediasti num is midline. Lines and tubes appear unchanged in position. basketball coach leads overlie the chest . IMPRESSION: Dense bilateral infiltrates, pulmonary vascular congestion, and other findings are stable. POS: [facility]
--- NOTE | 2017-07-17 09:45 | CON ---
DATE OF CONSULTATION: 07/16/2017 HISTORY OF PRESENT ILLNESS: A 36-year-old female, morbidly obese, was brought in from [facility] ith acute respiratory distress and encephalopathy. There is a at the bedside including patient's dad. She lives in [place]. The as to don as the father gave extensive history who states that patient has longstanding history of bipolar di sorder. She normally weighs 237 pounds with a BMI of 35 who apparently had a cold several days ago, was to the ER where I reviewed the x-ray on 07/13/2017 x-ray was normal. The patient's goes to work at 4 o'clock, television related issues, came back at 12:00, they found her not breathing, sh allow respirations, less responsive. EMS was called in. He tells me that when he spoke to her, she did open her eyes. Apparently, she was breathing on her own. I am told EMS had difficulty intubating her. She has some kind of a laryngeal mask placed in. I spo ke to the ER doctor electronic transaction implementer, Dr. Starkey. He tells me her sats were in the 80s range. Her pupils were fixed and dilated one time. CPAP was initiated. The tube was changed and intubated with a 7.5 tube orally. X-ray shows extensive bilateral pulmonary infiltrates and a CT of the brain was otherwise unremarkab le. Patient smokes a pack a day, had a previous history of pneumonia, but no history of TB, asthma. Amina use of her bipolar disorder, she is disabled. PAST SURGICAL HISTORY: Otherwise included a lumbar disk surgery in 2011. Repeat surgery in 04/2017. Cholecystectomy and leg amputation. PAST MEDICAL HISTORY: Otherwise, pertinent for apparently asthma, diabetes, bipolar disorder, histor y of substance abuse, hypertension, history of thyroid cancer, status post ablation. MEDICATIONS: The was giving a list of her psych medicines. As outlined, has included Buspar one tablet, oxcarbazepine 1 tab at nighttime, Synthroid 1 tablet a day, insulin 50 units 3 times a d ay, hydrocodone p.r.n., gabapentin 1 tablet 3 times a day, doxepin 1 a day, Celexa 1 tablet a day. ALLERGIES: None. SOCIAL HISTORY: As noted. REVIEW OF SYSTEMS: Otherwise, 10-point negative. PHYSICAL EXAMINATION: GENERAL: The patient is presently sedated, intubated. on Levophed at 4 mcg. VITAL SIGNS: Blood pressure about 100/60. She received 3 liters of fluid, pulse is 100, respiration s set at 20, 100% FIO2, sats are 95%. HEENT: Pupils are 2 mm, sluggish. CHEST: Extensive rhonchi, crackles and wheezing. CARDIAC: Normal S1, S2, no gallops. ABDOMEN: Distended. EXTREMITIES: No edema. LABORATORY AND X-RAY FINDINGS: Chest x-ray: Diffuse infiltrates bilaterally. White count 7000, H&H is 6 and 17, severe anemia. Platelet count is 99. A pO2 of 79, pCO2 of 57, pH 7.24, rate of 25, 100%, 500 tidal volume, PEEP of 10. Her BUN and creatinine are normal. Sodium 14 2, chloride 128, potassium 1.7, bicarbonate is 9. She received several amps of bicarbonate in the ER note. TSH is slightly elevated 6.9. UA is unremarkable. Drug screen was negative. IMPRESSION: 1. Acute respiratory failure. 2. Probably anoxic injury. Please note her sats were in the 80s as per the ER physician arrival. 3. Aspiration pneumonia. 4. Morbid obesity. 5. Asthma. 6. Severe anemia. 7. Thrombocytopenia. 8. Multiple electrolyte imbalance. PLAN: Pulmonary soto, we are initiating broad-spectrum antibiotics, neb treatments, steroids, suppor tive care, and pressors. She has central line in the left groin. Discussed with the family at [facility]. Prognosis guarded until we assess the neurological status in 24-48 hours, continue vent support, etc. This is a forty-five minute critical care time.
--- NOTE | 2017-07-17 09:55 | PDOC.PN ---
- Subjective Encounter Start Date: 07/17/17 Encounter Start Time: 09:53 Subjective: intubated, sedated - Objective Resuscitation Status: Resuscitation Status FULL:Full Resuscitation MAR Reviewed: Yes Vital Signs & Weight: Vital Signs (12 hours) Temp Pulse Resp Pulse Ox 07/17/17 09:00 99.3 F 07/17/17 08:46 20 07/17/17 08:00 28 H 07/17/17 06:53 93 07/17/17 06:00 101.8 F H 28 H 07/17/17 05:54 101.7 F H 07/17/17 05:00 101.3 F H 07/17/17 04:00 28 H 07/17/17 03:00 100.4 F H 07/17/17 02:55 90 28 H 97 07/17/17 02:00 28 H 07/17/17 01:00 100.1 F H 07/17/17 00:00 30 H 07/16/17 23:45 28 H 97 07/16/17 23:00 99.8 F H 07/16/17 22:15 94 28 H 96 07/16/17 22:00 32 H Weight Weight 235 lb 14.314 oz Most Recent Monitor Data Heart Rate from ECG 107 NIBP 133/76 NIBP BP-Mean 100 Respiration from ECG 24 SpO2 95 I&O: 07/16/17 07/17/17 07/18/17 06:59 06:59 06:59 Intake Total 4332 55.8 Output Total 4125 280 Balance 207 -224.2 Result Diagrams: 07/17/17 04:20 07/17/17 03:10 Additional Labs: Accuchecks 07/17/17 07/17/17 07/17/17 09:22 08:20 07:15 POC Glucose 241 H 273 H 328 H 07/17/17 07/17/17 07/17/17 06:15 05:24 04:17 POC Glucose 367 H 389 H 471 H 07/17/17 07/17/17 07/17/17 03:14 02:09 01:09 POC Glucose 503 H 540 H Greater than 550 H* 07/17/17 07/16/17 07/16/17 00:13 23:04 21:59 POC Glucose Greater than 550 H* Greater than 550 H* Greater than 550 H* 07/16/17 07/16/17 07/16/17 21:08 20:19 18:58 POC Glucose Greater than 550 H* Greater than 550 H* Greater than 550 H* 07/16/17 17:35 POC Glucose Greater than 550 H* Radiology Reviewed by me: Yes (cxr-ET tube, bilat infiltrates) Phys Exam - Physical Examination Neck: no JVD bilat coarse BS, diffuse rales Cardiovascular: RRR, no significant murmur Gastrointestinal: soft, non-tender, positive bowel sounds Musculoskeletal: edema present Dx/Plan (1) Acute respiratory failure Code(s): J96.00 - ACUTE RESPIRATORY FAILURE, UNSP W HYPOXIA OR HYPERCAPNIA Status: Acute Qualifiers: Respiratory failure complication: hypoxia and hypercapnia Qualified Code(s) : J96.01 - Acute respiratory failure with hypoxia; J96.02 - Acute respiratory failure with hypercapnia; J96.02 - Acute respiratory failure with hypercapnia; J96.02 - Acute respiratory failure with hypercapnia (2) Sepsis Code(s): A41.9 - SEPSIS, UNSPECIFIED ORGANISM Status: Acute Qualifiers: Sepsis type: sepsis due to unspecified organism Qualified Code(s): A41.9 - Sepsis, unspecified organism (3) Acute renal failure Status: Acute Qualifiers: Acute renal failure type: unspecified Qualified Code(s): N17.9 - Acute kidney failure, unspecified (4) PNA (pneumonia) Code(s): J18.9 - PNEUMONIA, UNSPECIFIED ORGANISM Status: Acute Qualifiers: Pneumonia type: due to unspecified organism Laterality: bilateral Lung location: unspecified part of lung Qualified Code(s): J18.9 - Pneumonia, unspecified organism (5) DM type 2 (diabetes mellitus, type 2) Status: Acute Qualifiers: Diabetes mellitus penitentiary insulin use: with penitentiary use Diabetes mellitus complication status: with kidney complications Chronic kidney disease stage: unspecified stage (6) DKA (diabetic ketoacidoses) Code(s): E13.10 - OTH DIABETES MELLITUS WITH KETOACIDOSIS WITHOUT COMA Status : Acute Qualifiers: Diabetes mellitus type: type 2 Diabetes mellitus complication detail: with coma Qualified Code(s): E11.11 - Type 2 diabetes mellitus with ketoacidosis with coma - Plan cont vent support -: cont broad spectrum antibx -: cont iv insulin, iv fluids -: prognosis guarded -: discuss with nurse * .
[2017-07-17] MEDS: D5 1/2 NS w/20 mEq KCL 1,000 ML IV PRN ×3 (10:26→21:05)
--- NOTE | 2017-07-17 14:32 | PRG ---
DATE OF SERVICE: 07/17/2017 SUBJECTIVE: This morning to my surprise, she is awake and moves all four extremities appropriate. OBJECITVE: VITAL SIGNS: Pulse 101, blood pressure 116/70, sats are 97%, respiration 20. I 's and O's are 4332 in, 4125 out. CHEST: Reveals extensive rhonchi and crackles. CARDIAC: Normal S1, S2, regular. ABDOMEN: Soft. EXTREMITIES: No edema. LABORATORY DATA: White count 10,000, hemoglobin and hematocrit are 10 and 31, platelet count 53, big left shift, 23% bands. Creatinine 1.8, BUN is 19. Blood sugar is 471. AST is 1088, ALT is 879. Albumin is 2.8. IMPRESSION: 1. Respiratory failure. 2. Aspiration pneumonia. 3. Underlying major bipolar schizophrenic disorder. 4. Diabetes. PLAN: At this stage, she is not weanable, we will continue broad-spectrum antibiotics, Levaquin,Maxipine_, neb treatments, steroids. Start nutrition and PT. We will follow. One-half hour critical care time. CARLOS
[2017-07-17] MEDS: Propofol 1,000 MG/100 ML VIAL IV PRN ×2 (16:00→21:05)
[2017-07-18] MEDS: Propofol 1,000 MG/100 ML VIAL IV PRN ×5 (01:24→20:07)
[2017-07-18] MEDS: D5 1/2 NS w/20 mEq KCL 1,000 ML IV PRN ×3 (03:09→16:46)
[2017-07-18] MEDS: Piperacillin/Tazobactam 3.375 GM in Sodium Chloride 0.9% 100 ML IVPB SCH ×3 (05:09→18:08)
[2017-07-18 05:19] LABS: Anion Gap 11 mmol/L (10-20); BUN (Urea Nitrogen) 13 mg/dL (7.0-18.7); Calc. Creatinine Clearance 137 mL/min (70-130); Calcium 8.2 mg/dL (7.8-10.44); Carbon Dioxide 26 mmol/L (22-29); Chloride 109 mmol/L (98-107); Estimated GFR-MDRD 66; Glucose 171 mg/dL (70-105); Potassium 3.6 mmol/L (3.5-5.1); Sodium 142 mmol/L (136-145)
[2017-07-18 05:52] LABS: Band 14 % (5-11); Hemoglobin 10.8 g/dL (12.0-16.0); Lymphocytes 7 % (21-51); MDiff Complete? YES; Mean Corpuscular Hemoglobin 31.7 pg (27.0-31.0); Mean Platelet Volume 10.4 fL (7.4-10.4); Neutrophil 79 % (42-75); Platelet Count 142 thou/uL (130-400); RBC Distribution Width 13.3 % (11.5-14.5); Red Blood Cell (RBC) Count 3.42 mill/uL (4.20-5.40); White Blood Cell (WBC) Count 14.3 thou/uL (4.8-10.8)
[2017-07-18 07:52] LABS: Actual Bicarbonate (HCO3a) 24.3 mEq/L (22-28); CO2 Tension 36.4 mmHg (35.0-45.0); O2 Tension (PaO2) 67.4 mmHg (80.0-100.0); pH, Arterial 7.44 (7.35-7.45)
[2017-07-18 07:53] LABS: Base Excess (BEa) 0.4 mEq/L (-2.0 to +3.0); Calcium, Ionized 1.1 mmol/L (1.12-1.30); Hematocrit-ABG 32.1 % (36.0-47.0); Hemoglobin (Hb) 10.7 g/dL (12.0-16.0)
[2017-07-18 07:54] LABS: Puncture Site RRA
--- NOTE | 2017-07-18 08:18 | PDOC.PN ---
- Subjective Encounter Start Date: 07/18/17 Encounter Start Time: 08:17 Subjective: intubated, sedated - Objective Resuscitation Status: Resuscitation Status FULL:Full Resuscitation MAR Reviewed: Yes Vital Signs & Weight: Vital Signs (12 hours) Temp Pulse Resp BP Pulse Ox 07/18/17 07:00 98.7 F 07/18/17 06:22 88 143/86 H 07/18/17 06:20 89 35 H 97 07/18/17 06:00 30 H 07/18/17 04:00 99 F 27 H 07/18/17 03:10 86 34 H 96 07/18/17 00:00 98.9 F 07/17/17 22:00 99.3 F 07/17/17 21:43 88 23 H 97 Weight Admit Weight 235 lb Weight 246 lb 14.684 oz Most Recent Monitor Data Heart Rate from ECG 89 NIBP 154/89 NIBP BP-Mean 107 Respiration from ECG 30 SpO2 98 I&O: 07/17/17 07/18/17 07/19/17 06:59 06:59 06:59 Intake Total 4332 6069.8 Output Total 4125 3390 350 Balance 207 2679.8 -350 Result Diagrams: 07/18/17 04:46 07/18/17 04:46 Additional Labs: Accuchecks 07/18/17 07/18/17 07/18/17 07:39 06:09 05:05 POC Glucose 163 H 135 H 201 H 07/18/17 07/18/17 07/18/17 04:25 03:08 02:14 POC Glucose 205 H 209 H 193 H 07/18/17 07/18/17 07/17/17 01:17 00:05 23:15 POC Glucose 210 H 218 H 193 H 07/17/17 07/17/17 07/17/17 22:11 21:06 20:07 POC Glucose 179 H 179 H 193 H 07/17/17 07/17/17 07/17/17 19:09 18:19 17:11 POC Glucose 186 H 184 H 157 H 07/17/17 07/17/17 07/17/17 15:44 14:35 13:16 POC Glucose 161 H 187 H 175 H 07/17/17 07/17/17 07/17/17 12:30 11:16 10:14 POC Glucose 156 H 172 H 211 H 07/17/17 07/17/17 09:22 08:20 POC Glucose 241 H 273 H Radiology Reviewed by me: Yes (cxr- bilat infiltrates, R>L) Phys Exam - Physical Examination Neck: no JVD coarse BS Cardiovascular: RRR, no significant murmur Gastrointestinal: soft, positive bowel sounds Musculoskeletal: edema present Dx/Plan (1) Acute respiratory failure Code(s): J96.00 - ACUTE RESPIRATORY FAILURE, UNSP W HYPOXIA OR HYPERCAPNIA Status: Acute Qualifiers: Respiratory failure complication: hypoxia and hypercapnia Qualified Code(s) : J96.01 - Acute respiratory failure with hypoxia; J96.02 - Acute respiratory failure with hypercapnia; J96.02 - Acute respiratory failure with hypercapnia; J96.02 - Acute respiratory failure with hypercapnia (2) Sepsis Code(s): A41.9 - SEPSIS, UNSPECIFIED ORGANISM Status: Acute Qualifiers: Sepsis type: sepsis due to unspecified organism Qualified Code(s): A41.9 - Sepsis, unspecified organism (3) Acute renal failure Status: Acute Qualifiers: Acute renal failure type: unspecified Qualified Code(s): N17.9 - Acute kidney failure, unspecified (4) PNA (pneumonia) Code(s): J18.9 - PNEUMONIA, UNSPECIFIED ORGANISM Status: Acute Qualifiers: Pneumonia type: due to unspecified organism Laterality: bilateral Lung location: unspecified part of lung Qualified Code(s): J18.9 - Pneumonia, unspecified organism (5) DM type 2 (diabetes mellitus, type 2) Status: Acute Qualifiers: Diabetes mellitus manager terminal insulin use: with manager terminal use Diabetes mellitus complication status: with kidney complications Chronic kidney disease stage: unspecified stage (6) DKA (diabetic ketoacidoses) Code(s): E13.10 - OTH DIABETES MELLITUS WITH KETOACIDOSIS WITHOUT COMA Status : Acute Qualifiers: Diabetes mellitus type: type 2 Diabetes mellitus complication detail: with coma Qualified Code(s): E11.11 - Type 2 diabetes mellitus with ketoacidosis with coma - Plan cont iv antibx, add diflucan for vag yeast -: cont accu, iv insulin for now -: still vent dependent -: enteral nutrition * .
--- NOTE | 2017-07-18 08:28 | PRG ---
DATE OF SERVICE: 07/18/2017 This morning she is awake, alert, intubated, moves all 4 extremities. PHYSICAL EXAMINATION: VITAL SIGNS: Blood pressure 154/89, sats are 98%, temperature 98, pulse 114. I's and O's are 6069 i n, 3390 out. CHEST: Chest revealed decreased breath sounds with less wheezing. CARDIAC: Normal S1, S2, no gallops. ABDOMEN: Soft, no masses. LABORATORY: White count 14,000, hemoglobin and hematocrit 10 and 32, platelet count 142, left shift. PO2 is 67, pCO2 37.44, rate of 20, 80%, 5 of tidal volume. Electrolytes are normal. Blood sugar 1 63. IMPRESSION: 1. Uncontrolled diabetes. 2. Bipolar disorder. 3. Aspiration pneumonia. 4. Respiratory failure. 5. Obesity. PLAN: Decrease steroids. Continue broad-spectrum antibiotics. Neb treatments, supportive care. PT and nutrition. I will follow. She is not weanable at this stage, but has improved over the last 24 hours. One-half hour critical care time.
--- NOTE | 2017-07-18 08:30 | RAD ---
CHEST 1 VIEW: Date: 07/18/17 HISTORY: Dyspnea. Intubated. Follow-up. COMPARISON: 07/17/17. FINDINGS: Cardiac silhouette is magnified by projection and remains partially obscured by patchy bibasilar infi ltrates, which are not significantly changed. Mediastinum is midline. Lines and tubes unchanged in po sition. Pulmonary vasculature remains engorged. scenic designer leads overlie the chest. IMPRESSION: Pulmonary vascular congestion, dense bilateral infiltrates, and other findings are stable. POS: ELIZA
[2017-07-18] MEDS: Fluconazole In NaCl,Iso-Osm 200 MG in Premix Bag 1 BAG IVPB SCH (09:54)
--- NOTE | 2017-07-18 11:55 | OP ---
ICU BED: A6. PROCEDURE: Bronchoscopy with lavage. INDICATIONS: Aspiration pneumonia and respiratory failure. DESCRIPTION OF PROCEDURE: After an informed consent from the mother, the patient is sedated on Dipri van and fentanyl. The flexible bronchoscope passed, using adapter. Distal trachea had copious amoun ts of thick yellowish secretions, suctioned and lavaged to clear. The left lung was inspected initia lly in left upper and left lower lobe. Mucus plugging with lesser amount of yellow secretions. No e ndobronchial disease seen. This was lavaged with normal saline, a total of 20 mL. The right lung was inspected thereafter, which also had moderate amount of yellow secretions, which w as also suctioned and lavaged to clear. No bronchial obstruction was seen. The patient tolerated the procedure well. Washings was sent for Gram stain and C and S. We will adj ust the antibiotics depending on culture.
[2017-07-18] MEDS: Lorazepam 2 MG/ML VIAL SLOW IVP PRN ×2 (12:50→17:34)
[2017-07-18] MEDS ORDERED: hydrALAZINE 20 MG/ML VIAL SLOW IVP PRN (13:57)
[2017-07-18] MEDS: Labetalol HCl 100 MG/20 ML VIAL SLOW IVP PRN (18:08)
--- NOTE | 2017-07-18 19:08 | RAD ---
RIGHT FOOT THREE VIEW: 07/18/17 HISTORY: Diabetic ulcer of the great toe. COMPARISON: None. FINDINGS: There is a large plantar soft tissue ulcer of the great toe at the level of the distal phalanx. The distal phalanx appears to be somewhat mildly demineralized. No acute fracture or malalignment. There is some ossification in the intermetatarsal ligament in the fourth and fifth digits. Lisfranc i nterval is maintained. Small dorsal and plantar calcaneal spurs. IMPRESSION: Very mild osseous demineralization of the plantar aspect of the great toe distal phalanx base with la rge underlying soft tissue ulcer can be seen in osteomyelitis. POS: ELIZA
[2017-07-19] MEDS: Piperacillin/Tazobactam 3.375 GM in Sodium Chloride 0.9% 100 ML IVPB SCH ×5 (00:05→23:26)
[2017-07-19] MEDS: Propofol 1,000 MG/100 ML VIAL IV PRN ×7 (00:06→23:27)
[2017-07-19] MEDS: D5 1/2 NS w/20 mEq KCL 1,000 ML IV PRN ×2 (00:06→05:16)
--- NOTE | 2017-07-19 00:20 | HP ---
HISTORY OF PRESENT ILLNESS: Billie Phillips is a 36-year-old morbidly obese female, 246 pound s, presents with pneumonia, respiratory failure. 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 Her present states claudio t she has had this ulcer in a right great toe for some time and it would not let anybody evaluated. The patient is morbidly obese, diabetic, and she smokes routinely. ALLERGIES: None. HOME MEDICATIONS: She is on buspirone, oxcarbazepine, levothyroxine, insulin, hydrocodone, gabapenti n, doxepin, citalopram in the hospital. She is on a propofol drip, Solu-Medrol IV, insulin, fluconaz ole, sedation protocol for the ventilator, Levaquin IV. She is on norepinephrine drip and Zosyn. PAST MEDICAL HISTORY: Diabetes mellitus, hypertension, bipolar disorder, obesity, hypertension. PAST SURGICAL HISTORY: Cholecystectomy, thyroidectomy for thyroid cancer. SOCIAL HISTORY: Patient is . Her family is at bedside. PHYSICAL EXAMINATION: VITAL SIGNS: 246 pounds, 154/64, 87, respiratory rate 42. HEAD, EARS, EYES, NOSE, AND THROAT: Unremarkable. LUNGS: Clear to auscultation. ABDOMEN: Soft, obese, nontender. EXTREMITIES: Palpable pedal pulses. Well-healed left great toe, partial amputation of right great t oe, plantar medial large 3-cm dry gangrenous process with deep ulceration. There is no evidence of c ellulitis or purulence. White count 14, hemoglobin 10. BUN and creatinine are normal. Glucose Accu -Cheks 219 and 185. ASSESSMENT AND PLAN: 1. Right great toe ulcer. No evidence of sepsis, no evidence of infection, this is a dry gangrenous process, chronic ulceration. There is no indication for immediate treatment. We would obtain x-ray s of the right foot and look at these next week when I return. Dr. Hughes is covering for me. Please call if needed, otherwise he will not see him routinely. 2. Respiratory failure. 3. Seizure disorder. 4. Morbid obesity, metabolic syndrome. 5. Diabetes mellitus. 6. Hypertension. 7. Tobacco abuse. 8. Bipolar disorder.
[2017-07-19 05:27] LABS: Anion Gap 13 mmol/L (10-20); BUN (Urea Nitrogen) 13 mg/dL (7.0-18.7); Calc. Creatinine Clearance 181 mL/min (70-130); Calcium 8.3 mg/dL (7.8-10.44); Carbon Dioxide 26 mmol/L (22-29); Chloride 104 mmol/L (98-107); Estimated GFR-MDRD 86; Glucose 195 mg/dL (70-105); Potassium 3.7 mmol/L (3.5-5.1); Sodium 139 mmol/L (136-145)
[2017-07-19 05:51] LABS: MDiff Complete? YES; Mean Corpuscular HGB CONC 32.9 g/dL (32.0-36.0); Mean Corpuscular Hemoglobin 30.9 pg (27.0-31.0); Mean Corpuscular Volume 94.1 fl (81.0-99.0); Mean Platelet Volume 10.2 fL (7.4-10.4); Platelet Count 164 thou/uL (130-400); RBC Distribution Width 13.5 % (11.5-14.5); Red Blood Cell (RBC) Count 3.56 mill/uL (4.20-5.40); White Blood Cell (WBC) Count 17.2 thou/uL (4.8-10.8)
[2017-07-19 05:52] LABS: Band 21 % (5-11); Lymphocytes 6 % (21-51); Monocytes 1 % (0-10); Neutrophil 72 % (42-75); Nucleated RBC 1 % (0)
[2017-07-19] MEDS: Fluconazole In NaCl,Iso-Osm 200 MG in Premix Bag 1 BAG IVPB SCH (07:46)
[2017-07-19 08:18] LABS: CO2 Tension 35.2 mmHg (35.0-45.0); O2 Tension (PaO2) 81.1 mmHg (80.0-100.0); pH, Arterial 7.47 (7.35-7.45)
[2017-07-19 08:24] LABS: Actual Bicarbonate (HCO3a) 25.3 mEq/L (22-28); Base Excess (BEa) 1.9 mEq/L (-2.0 to +3.0); Calcium, Ionized 1.1 mmol/L (1.12-1.30); Hematocrit-ABG 34.6 % (36.0-47.0); Hemoglobin (Hb) 10.5 g/dL (12.0-16.0)
[2017-07-19 08:25] LABS: Puncture Site RRA
--- NOTE | 2017-07-19 08:35 | RAD ---
CHEST 1 VIEW: HISTORY: Dyspnea. Intubated. Followup. COMPARISON: 07/18/17. FINDINGS: Cardiac silhouette remains magnified by projection and partially obscured by bibasilar infiltrates th at are similar in appearance to the prior study. Right upper lobe infiltrate is less dense. Pulmona ry vasculature remains engorged. Mediastinum midline. Lines and tubes are unchanged in position. C ardiac monitor leads overlie the chest. IMPRESSION: Persistent pulmonary vascular congestion and bibasilar infiltrates. Improved aeration right upper lo be. POS: LUIS
[2017-07-19] MEDS ORDERED: Dextrose 5% in Water 1,000 ML IV PRN (10:02)
[2017-07-19] MEDS ORDERED: Dextrose 50% Abboject 50 ML SYRINGE SLOW IVP PRN (10:02)
--- NOTE | 2017-07-19 10:04 | PDOC.PN ---
- Subjective Encounter Start Date: 07/19/17 Encounter Start Time: 10:03 Subjective: intubated, sedated. hyperventilates with decreased sedayion - Objective Resuscitation Status: Resuscitation Status FULL:Full Resuscitation Vital Signs & Weight: Vital Signs (12 hours) Temp Pulse Resp BP Pulse Ox 07/19/17 08:00 44 H 07/19/17 07:33 76 145/86 H 07/19/17 07:31 76 39 H 99 07/19/17 07:00 97.9 F 07/19/17 06:00 36 H 07/19/17 04:00 98.3 F 44 H 07/19/17 02:26 73 26 H 98 07/19/17 02:00 38 H 07/19/17 00:00 98.2 F 40 H Weight Admit Weight 235 lb Weight 246 lb 14.684 oz Most Recent Monitor Data Heart Rate from ECG 84 NIBP 157/87 NIBP BP-Mean 113 Respiration from ECG 42 SpO2 91 I&O: 07/18/17 07/19/17 07/20/17 06:59 06:59 06:59 Intake Total 6069.8 5769.2 Output Total 3390 5660 830 Balance 2679.8 109.2 -830 Result Diagrams: 07/19/17 04:40 07/19/17 04:40 Additional Labs: Accuchecks 07/19/17 07/19/17 07/19/17 09:28 08:13 07:39 POC Glucose 149 H 181 H 181 H 07/19/17 07/19/17 07/19/17 06:17 04:40 03:15 POC Glucose 166 H 211 H 196 H 07/19/17 07/19/17 07/18/17 01:45 00:16 22:34 POC Glucose 177 H 194 H 200 H 07/18/17 07/18/17 07/18/17 21:04 20:03 18:09 POC Glucose 209 H 200 H 192 H 07/18/17 07/18/17 07/18/17 16:36 15:31 14:42 POC Glucose 199 H 185 H 179 H 07/18/17 07/18/17 07/18/17 13:38 12:43 11:22 POC Glucose 181 H 219 H 189 H Radiology Reviewed by me: Yes (cxr- ET tube, bilat infiltrates persist) Phys Exam - Physical Examination Neck: no JVD bilat coarse BS, rales Cardiovascular: RRR, no significant murmur Gastrointestinal: soft, positive bowel sounds Musculoskeletal: edema present Dx/Plan (1) Acute respiratory failure Code(s): J96.00 - ACUTE RESPIRATORY FAILURE, UNSP W HYPOXIA OR HYPERCAPNIA Status: Acute Qualifiers: Respiratory failure complication: hypoxia and hypercapnia Qualified Code(s) : J96.01 - Acute respiratory failure with hypoxia; J96.02 - Acute respiratory failure with hypercapnia; J96.02 - Acute respiratory failure with hypercapnia; J96.02 - Acute respiratory failure with hypercapnia (2) Sepsis Code(s): A41.9 - SEPSIS, UNSPECIFIED ORGANISM Status: Acute Qualifiers: Sepsis type: sepsis due to unspecified organism Qualified Code(s): A41.9 - Sepsis, unspecified organism (3) Acute renal failure Status: Resolved Qualifiers: Acute renal failure type: unspecified Qualified Code(s): N17.9 - Acute kidney failure, unspecified (4) PNA (pneumonia) Code(s): J18.9 - PNEUMONIA, UNSPECIFIED ORGANISM Status: Acute Qualifiers: Pneumonia type: due to unspecified organism Laterality: bilateral Lung location: unspecified part of lung Qualified Code(s): J18.9 - Pneumonia, unspecified organism (5) DM type 2 (diabetes mellitus, type 2) Status: Acute Qualifiers: Diabetes mellitus mcc insulin use: with mcc use Diabetes mellitus complication status: with kidney complications Chronic kidney disease stage: unspecified stage (6) DKA (diabetic ketoacidoses) Code(s): E13.10 - OTH DIABETES MELLITUS WITH KETOACIDOSIS WITHOUT COMA Status : Resolved Qualifiers: Diabetes mellitus type: type 2 Diabetes mellitus complication detail: with coma Qualified Code(s): E11.11 - Type 2 diabetes mellitus with ketoacidosis with coma (7) DM type 2, uncontrolled, with lower extremity ulcer Code(s): E11.622 - TYPE 2 DIABETES MELLITUS WITH OTHER SKIN ULCER; E11.65 - TYPE 2 DIABETES MELLITUS WITH HYPERGLYCEMIA; L97.909 - NON-PRS CHRONIC ULC UNSP PRT OF UNSP LOW LEG W UNSP SEVERITY Status: Acute - Plan DC DKA protocol. institute home insulin regimen. mod ss, accu q4h -: reinstiute home psych meds -: conr iv antibx- I&D of specimens obtained at bronchoscopy pending * .
[2017-07-19] MEDS ORDERED: busPIRone HCl 10 MG TAB PO SCH (11:00)
--- NOTE | 2017-07-19 11:03 | PRG ---
DATE OF SERVICE: 07/19/2017 SUBJECTIVE: Intubated on the vent, sedation was withheld. We still unable to get her schizophrenic medication on board. OBJECTIVE: VITAL SIGNS: Blood pressure 145/86, pulse 83, respiration rate 18. I's and O's are 576 in and 56 ou t. CHEST: Chest reveals decreased breath sounds, minimal rhonchi, wheezing is much improved. CARDIAC: Sinus tachycardia. ABDOMEN: Soft. LABORATORY DATA: White count 17,000 H&H is 11 and 33, platelet count 165. PO2 is 81, pCO2 of 35, pH 7.47, 60%, 10 of PEEP. Electrolytes are normal. Blood sugar is better. IMPRESSION: Respiratory failure, aspiration pneumonia, schizophrenia, diabetes, previous amputated t oes with discoloration. PLAN: We will try and hold sedation and put her back on a home medication, antibiotics, nebulizer tr eatments, steroids. Hopefully, we can wean and extubate. One-half hour critical care time.
[2017-07-19] MEDS: D5 1/2 NS w/20 mEq KCL 1,000 ML IV SCH ×2 (11:29→17:14)
[2017-07-19] MEDS ORDERED: Insulin Regular 300 UNITS/3 ML VIAL SC SCH (11:45)
[2017-07-19] MEDS ORDERED: OXcarbazepine 300 MG TAB PO SCH (12:00)
[2017-07-19] MEDS: Lorazepam 2 MG/ML VIAL SLOW IVP PRN (12:55)
[2017-07-19] MEDS: Labetalol HCl 100 MG/20 ML VIAL SLOW IVP PRN (13:10)
[2017-07-19] MEDS: fentaNYL Citrate/PF 2,000 MCG in Sodium Chloride 0.9% 60 ML IV SCH (13:34)
[2017-07-19] MEDS: Insulin Regular 300 UNITS/3 ML VIAL SC SCH ×2 (15:44→20:20)
[2017-07-19] MEDS: busPIRone HCl 10 MG TAB PO SCH (20:18)
[2017-07-19] MEDS: OXcarbazepine 300 MG TAB PO SCH (20:18)
[2017-07-19] MEDS: Insulin Glargine 32 UNITS in Pre-Filled Syringe 1 EACH SC SCH (20:19)
[2017-07-19] MEDS ORDERED: Non-Formulary Item 1 EACH (Insulin Glargine,Hum.Rec.Anlog [Toujeo Solostar] 40 UNIT) SQ SCH (21:00)
[2017-07-20] MEDS: HumaLOG 300 UNITS/3 ML VIAL SC PRN ×3 (03:42→16:01)
[2017-07-20] MEDS: Propofol 1,000 MG/100 ML VIAL IV PRN ×3 (03:48→16:20)
[2017-07-20 05:09] LABS: Anion Gap 12 mmol/L (10-20); BUN (Urea Nitrogen) 18 mg/dL (7.0-18.7); Calc. Creatinine Clearance 196 mL/min (70-130); Calcium 8.2 mg/dL (7.8-10.44); Carbon Dioxide 29 mmol/L (22-29); Chloride 103 mmol/L (98-107); Estimated GFR-MDRD Greater than 90; Glucose 194 mg/dL (70-105); Potassium 3.9 mmol/L (3.5-5.1); Sodium 140 mmol/L (136-145)
[2017-07-20] MEDS: Levothyroxine Sodium 100 MCG TAB PO SCH (05:10)
[2017-07-20 05:14] LABS: Band 14 % (5-11); Hemoglobin 11.2 g/dL (12.0-16.0); Lymphocytes 10 % (21-51); MDiff Complete? YES; Mean Corpuscular HGB CONC 32.4 g/dL (32.0-36.0); Mean Corpuscular Hemoglobin 30.8 pg (27.0-31.0); Mean Corpuscular Volume 95.1 fl (81.0-99.0); Mean Platelet Volume 10.4 fL (7.4-10.4); Monocytes 2 % (0-10); Neutrophil 74 % (42-75); Nucleated RBC 2 % (0); Platelet Count 174 thou/uL (130-400); RBC Distribution Width 13.5 % (11.5-14.5); Red Blood Cell (RBC) Count 3.63 mill/uL (4.20-5.40)
[2017-07-20] MEDS: Piperacillin/Tazobactam 3.375 GM in Sodium Chloride 0.9% 100 ML IVPB SCH ×3 (05:14→17:59)
[2017-07-20] MEDS: D5 1/2 NS w/20 mEq KCL 1,000 ML IV SCH ×2 (05:14→20:34)
[2017-07-20] MEDS: Fluconazole In NaCl,Iso-Osm 200 MG in Premix Bag 1 BAG IVPB SCH (08:21)
[2017-07-20 08:22] LABS: CO2 Tension 41.9 mmHg (35.0-45.0); pH, Arterial 7.44 (7.35-7.45)
[2017-07-20 08:23] LABS: Actual Bicarbonate (HCO3a) 27.7 mEq/L (22-28); Base Excess (BEa) 3.2 mEq/L (-2.0 to +3.0); Hematocrit-ABG 35.6 % (36.0-47.0); O2 Tension (PaO2) 53.3 mmHg (80.0-100.0)
[2017-07-20 08:24] LABS: Calcium, Ionized 1.1 mmol/L (1.12-1.30); Puncture Site RRA
[2017-07-20] MEDS: busPIRone HCl 10 MG TAB PO SCH ×2 (08:24→20:35)
[2017-07-20 08:27] LABS: ALV-art Gradient 250.825 (0-20)
--- NOTE | 2017-07-20 08:28 | RAD ---
CHEST 1 VIEW: HISTORY: Dyspnea. Chest pain. Followup. COMPARISON: 07/19/17. FINDINGS: Cardiac silhouette magnified by projection and partially obscured by patchy bilateral airspace diseas e, similar in appearance to the previous exam. Pulmonary vasculature remains engorged with widesprea d reticulonodular interstitial infiltrate. Mediastinum is midline. Lines and tubes appear unchanged in position. telecom engineer leads overlie the chest. IMPRESSION: Pulmonary edema, patchy infiltrates, and other findings are stable. POS: LUISH
[2017-07-20] MEDS: Insulin Regular 300 UNITS/3 ML VIAL SC SCH ×3 (08:51→20:35)
[2017-07-20] MEDS ORDERED: Budesonide 0.5 MG/2 ML NEB ONE (11:14)
--- NOTE | 2017-07-20 12:41 | PRG ---
DATE OF SERVICE: 07/20/2017 SUBJECTIVE: This morning, little bit more responsive, opens her eyes. Denies any pain or discomfort . Broad spectrum antibiotics. All cultures are negative except for Nancy. OBJECTIVE: VITAL SIGNS: Blood pressure is 121/73, sats are 97%, temperature 97, respirations 18. I's and O's a re 4301 in, 4530 out. CHEST: Reveals decreased breath sounds, bilateral rhonchi, crackles, wheezing. CARDIAC: Sinus tachycardia. ABDOMEN: No masses. NEUROLOGIC: Opens eyes, moves all 4 extremities. LABORATORY DATA: White count 15,000, H and H 11 and 34, platelet count 174, pO2 is only 53, pCO2 41, rate of 20. Electrolytes are normal. IMPRESSION: 1. Respiratory failure. 2. Morbid obesity. 3. Schizophrenia. 4. Bilateral bronchopneumonia. PLAN: At this stage, vent being adjusted. She is not weanable. Minimize sedation. Nutrition, PT. Hopefully, we can wean her off in the next 24-48 hours. Prognosis is guarded. One-half hour critical care time.
--- NOTE | 2017-07-20 16:34 | PDOC.PN ---
- Subjective Encounter Start Date: 07/20/17 (f/u diabetes) Encounter Start Time: 16:32 Subjective: Pt remains intubated. Residual tube feeds at 180 and this is on hold. -: No other events today - Objective Resuscitation Status: Resuscitation Status FULL:Full Resuscitation Vital Signs & Weight: Vital Signs (12 hours) Temp Pulse Pulse Resp BP BP Pulse Ox 07/20/17 16:00 98.2 F 29 H 07/20/17 14:02 79 136/76 07/20/17 14:01 77 30 H 96 07/20/17 14:00 30 H 07/20/17 12:00 98.2 F 33 H 07/20/17 11:20 72 155/91 H 07/20/17 11:19 77 155/91 H 07/20/17 11:18 77 44 H 95 07/20/17 11:17 77 44 H 95 07/20/17 10:00 38 H 07/20/17 08:00 97.9 F 77 25 H 07/20/17 07:34 74 119/75 07/20/17 07:32 76 20 94 L 07/20/17 06:00 20 Pulse Ox 07/20/17 16:00 07/20/17 14:02 07/20/17 14:01 07/20/17 14:00 07/20/17 12:00 07/20/17 11:20 94 L 07/20/17 11:19 07/20/17 11:18 07/20/17 11:17 07/20/17 10:00 07/20/17 08:00 07/20/17 07:34 07/20/17 07:32 07/20/17 06:00 Weight Admit Weight 235 lb Weight 246 lb 14.684 oz Most Recent Monitor Data Heart Rate from ECG 72 NIBP 128/71 NIBP BP-Mean 84 Respiration from ECG 31 SpO2 92 I&O: 07/19/17 07/20/17 07/21/17 06:59 06:59 06:59 Intake Total 5769.2 4301.6 180 Output Total 5660 4530 1040 Balance 109.2 -228.4 -860 Result Diagrams: 07/20/17 03:30 07/20/17 03:30 Additional Labs: Accuchecks 07/20/17 07/20/17 07/20/17 16:01 12:55 08:53 POC Glucose 187 H 223 H 257 H 07/20/17 07/19/17 07/19/17 03:41 23:45 20:05 POC Glucose 188 H 141 H 198 H EKG Reviewed by me: Yes (sinus rhythm 70's) Phys Exam - Physical Examination Constitutional: NAD intubated and sedated some wheezing, fair air movement bilateral Cardiovascular: RRR, no significant murmur Gastrointestinal: soft, non-tender, positive bowel sounds Musculoskeletal: no edema amputation of left great toe. Eschar with surrounding tissue c/w dry gangrene of right 1st mtp Neurological: non-focal, normal sensation, moves all 4 limbs intubated/sedated - not assessed Deviation from normal: intubated/sedated - not assessed Skin: no rash Deviation from normal: see above regarding right 1st toe Dx/Plan (1) Acute respiratory failure Code(s): J96.00 - ACUTE RESPIRATORY FAILURE, UNSP W HYPOXIA OR HYPERCAPNIA Status: Acute Qualifiers: Respiratory failure complication: hypoxia and hypercapnia Qualified Code(s) : J96.01 - Acute respiratory failure with hypoxia; J96.02 - Acute respiratory failure with hypercapnia; J96.02 - Acute respiratory failure with hypercapnia; J96.02 - Acute respiratory failure with hypercapnia (2) DM type 2 (diabetes mellitus, type 2) Status: Acute Qualifiers: Diabetes mellitus usp insulin use: with usp use Diabetes mellitus complication status: with kidney complications Chronic kidney disease stage: unspecified stage (3) PNA (pneumonia) Code(s): J18.9 - PNEUMONIA, UNSPECIFIED ORGANISM Status: Acute Qualifiers: Pneumonia type: due to unspecified organism Laterality: bilateral Lung location: unspecified part of lung Qualified Code(s): J18.9 - Pneumonia, unspecified organism (4) Sepsis Code(s): A41.9 - SEPSIS, UNSPECIFIED ORGANISM Status: Acute Qualifiers: Sepsis type: sepsis due to unspecified organism Qualified Code(s): A41.9 - Sepsis, unspecified organism (5) DKA (diabetic ketoacidoses) Code(s): E13.10 - OTH DIABETES MELLITUS WITH KETOACIDOSIS WITHOUT COMA Status : Resolved Qualifiers: Diabetes mellitus type: type 2 Diabetes mellitus complication detail: with coma Qualified Code(s): E11.11 - Type 2 diabetes mellitus with ketoacidosis with coma (6) Hypothyroid Code(s): E03.9 - HYPOTHYROIDISM, UNSPECIFIED Status: Chronic Qualifiers: Hypothyroidism type: acquired Qualified Code(s): E03.9 - Hypothyroidism, unspecified Comment: s/p iodine ablation (7) Bipolar disorder Code(s): F31.9 - BIPOLAR DISORDER, UNSPECIFIED Status: Chronic Qualifiers: Active/Remission status: remission status unspecified Qualified Code(s): F31.9 - Bipolar disorder, unspecified (8) Osteomyelitis Code(s): M86.9 - OSTEOMYELITIS, UNSPECIFIED Status: Chronic Qualifiers: Osteomyelitis type: unspecified type Osteomyelitis location: foot Laterality: right Qualified Code(s): M86.9 - Osteomyelitis, unspecified - Plan * Pneumonia/Sepsis/intubated - appreciate management by Pulm - on steroids/abx/ nebs * Bipolar d/o - sertraline, buspar and trileptal started yesterday * DM - blood sugars controlled * hypothyroid - on levothyroxine * Concern for osteomyeltitis/gangrene of right 1st toe - will need surgical evaluation when stable. * * dvt prophy - ordering lovenox * gi prophy - ordering protonix * (Reviewed both of the above with Dr. Benson) * * code status Full * * reviewed care with patient's and provided a note for his work documenting that pt has been hospitalized since July 16. No further needs at end of eval * * pt remains at high risk in current condition..
[2017-07-20] MEDS ORDERED: Pantoprazole 40 MG VIAL IVP SCH (16:45)
[2017-07-20] MEDS: Budesonide 0.5 MG/2 ML NEB INH SCH (18:23)
[2017-07-20] MEDS: Enoxaparin Sodium 40 MG/0.4 ML SYRINGE SC SCH (20:32)
[2017-07-20] MEDS: Insulin Glargine 32 UNITS in Pre-Filled Syringe 1 EACH SC SCH (20:34)
[2017-07-20] MEDS: OXcarbazepine 300 MG TAB PO SCH (20:35)
[2017-07-21] MEDS: Piperacillin/Tazobactam 3.375 GM in Sodium Chloride 0.9% 100 ML IVPB SCH ×2 (00:16→05:10)
[2017-07-21] MEDS: Propofol 1,000 MG/100 ML VIAL IV PRN ×3 (00:16→17:21)
[2017-07-21] MEDS: HumaLOG 300 UNITS/3 ML VIAL SC PRN ×2 (00:20→05:10)
[2017-07-21] MEDS: fentaNYL Citrate/PF 2,000 MCG in Sodium Chloride 0.9% 60 ML IV SCH (02:01)
[2017-07-21] MEDS: Levothyroxine Sodium 100 MCG TAB PO SCH (05:10)
[2017-07-21 05:18] LABS: Anion Gap 13 mmol/L (10-20); BUN (Urea Nitrogen) 19 mg/dL (7.0-18.7); Calc. Creatinine Clearance 194 mL/min (70-130); Carbon Dioxide 32 mmol/L (22-29); Chloride 98 mmol/L (98-107); Estimated GFR-MDRD Greater than 90; Glucose 161 mg/dL (70-105); Potassium 3.9 mmol/L (3.5-5.1); Sodium 139 mmol/L (136-145)
[2017-07-21 06:29] LABS: Hemoglobin 11.4 g/dL (12.0-16.0); Mean Corpuscular HGB CONC 33.2 g/dL (32.0-36.0); Mean Corpuscular Hemoglobin 31.5 pg (27.0-31.0); Mean Platelet Volume 9.7 fL (7.4-10.4); Platelet Count 199 thou/uL (130-400); RBC Distribution Width 13.4 % (11.5-14.5); Red Blood Cell (RBC) Count 3.63 mill/uL (4.20-5.40); White Blood Cell (WBC) Count 18.2 thou/uL (4.8-10.8)
[2017-07-21] MEDS: Budesonide 0.5 MG/2 ML NEB INH SCH ×2 (06:29→18:56)
[2017-07-21 07:01] LABS: Band 14 % (5-11); Eosinophils 1 % (0-10); Lymphocytes 8 % (21-51); MDiff Complete? YES; Monocytes 1 % (0-10); Neutrophil 76 % (42-75)
[2017-07-21 07:51] LABS: Actual Bicarbonate (HCO3a) 31.5 mEq/L (22-28); O2 Tension (PaO2) 47.4 mmHg (80.0-100.0); pH, Arterial 7.45 (7.35-7.45)
[2017-07-21 07:52] LABS: Base Excess (BEa) 6.8 mEq/L (-2.0 to +3.0); Hematocrit-ABG 37.5 % (36.0-47.0); Hemoglobin (Hb) 11.2 g/dL (12.0-16.0)
[2017-07-21 07:53] LABS: Puncture Site RRA
--- NOTE | 2017-07-21 08:25 | RAD ---
PORTABLE CHEST: COMPARISON: 07/20/17 study. HISTORY: Respiratory distress. FINDINGS: Endotracheal tube is in satisfactory position. NG tube is difficult to visualize but appears to be b elow the hemidiaphragm. Interstitial alveolar lung changes are fairly similar given differences in t echnique. IMPRESSION: Essentially stable exam. POS: OFF
[2017-07-21] MEDS: Fluconazole In NaCl,Iso-Osm 200 MG in Premix Bag 1 BAG IVPB SCH (08:26)
[2017-07-21] MEDS: busPIRone HCl 10 MG TAB PO SCH ×2 (08:27→20:31)
[2017-07-21] MEDS: Pantoprazole 40 MG VIAL IVP SCH (08:27)
[2017-07-21] MEDS: Insulin Regular 300 UNITS/3 ML VIAL SC SCH (08:28)
[2017-07-21] MEDS ORDERED: Furosemide 20 MG/2 ML VIAL SLOW IVP SCH (08:30)
[2017-07-21] MEDS: D5 1/2 NS w/20 mEq KCL 1,000 ML IV SCH (08:31)
--- NOTE | 2017-07-21 08:42 | PRG ---
DATE OF SERVICE: 07/21/2017 This morning she is awake, alert, responsive on the vent. X-ray unfortunately still shows diffuse in filtrates. PHYSICAL EXAMINATION: VITAL SIGNS: Temperature is 98, pulse is 100, respiratory rate is 25, blood pressure 136/76. NEUROLOGIC: She moves all 4 extremities. I's and O's are 3596 in, 3820 out. CHEST: Reveals extensive rhonchi and crackles. CARDIAC: Normal S1, S2, no gallops. ABDOMEN: Soft, no masses. LABORATORY DATA: White count 18,000, H&H 11 and 34, platelet 195. PO2 was only 47, pCO2 47.45 on 50 %, PEEP of 7. BUN and creatinine are normal. IMPRESSION: 1. Respiratory failure. 2. Adult respiratory distress syndrome. 3. Bipolar schizophrenic. She is on broad spectrum antibiotics, Levaquin, Maxipime and Diflucan. All cultures are negative. At this stage, she is not weanable until her oxygen saturation improves. I will adjust antibiotics. I will follow. One-half hour critical care time.
[2017-07-21] MEDS: Cefepime 2 GM in Sodium Chloride 0.9% 100 ML IVPB SCH ×2 (09:07→20:31)
[2017-07-21] MEDS: Sodium Chloride 0.9% 1,000 ML IV SCH ×2 (09:09→20:33)
[2017-07-21] MEDS ORDERED: INSULIN GLARGINE SC SCH (10:00)
--- NOTE | 2017-07-21 13:42 | PDOC.PN ---
- Subjective Encounter Start Date: 07/21/17 Encounter Start Time: 13:40 -: non-verbal Subjective: Intubated - Objective Resuscitation Status: Resuscitation Status FULL:Full Resuscitation MAR Reviewed: Yes Vital Signs & Weight: Vital Signs (12 hours) Temp Pulse Resp BP Pulse Ox 07/21/17 13:08 76 126/67 07/21/17 13:01 75 27 H 88 L 07/21/17 11:54 26 H 07/21/17 10:51 98.6 F 07/21/17 09:49 28 H 07/21/17 07:47 98.0 F 79 35 H 90 L 07/21/17 07:00 98.0 F 07/21/17 06:29 75 31 H 90 L 07/21/17 06:27 73 100/63 07/21/17 06:25 75 31 H 90 L 07/21/17 06:00 19 07/21/17 04:00 98.0 F 30 H 07/21/17 02:06 75 07/21/17 02:00 31 H Weight Admit Weight 235 lb Weight 239 lb 13.807 oz Most Recent Monitor Data Heart Rate from ECG 76 NIBP 126/67 NIBP BP-Mean 84 Respiration from ECG 28 SpO2 89 I&O: 07/20/17 07/21/17 07/22/17 06:59 06:59 06:59 Intake Total 4301.6 3596.2 559 Output Total 4530 3820 1505 Balance -228.4 -223.8 -946 Result Diagrams: 07/21/17 04:15 07/21/17 04:15 Additional Labs: Accuchecks 07/21/17 07/21/17 07/21/17 11:44 10:13 07:55 POC Glucose 105 123 H 142 H 07/21/17 07/21/17 07/20/17 04:18 00:21 20:20 POC Glucose 167 H 176 H 153 H 07/20/17 16:01 POC Glucose 187 H Radiology Reviewed by me: Yes (Diffuse bilateral interstitial infiltrates) Phys Exam - Physical Examination Constitutional: NAD Intubated, sedated. Arousable and follows commands. HEENT: PERRLA Neck: no JVD Diffuse, bilateral, scattered rales. Cardiovascular: RRR, no significant murmur Gastrointestinal: soft, non-tender, no distention, positive bowel sounds Musculoskeletal: no edema Ischemia and ulcer plantar R great toe. L Hallux amputation-stump dusky Neurological: non-focal Skin: no rash Dx/Plan (1) Acute respiratory failure Code(s): J96.00 - ACUTE RESPIRATORY FAILURE, UNSP W HYPOXIA OR HYPERCAPNIA Status: Acute Qualifiers: Respiratory failure complication: hypoxia and hypercapnia Qualified Code(s) : J96.01 - Acute respiratory failure with hypoxia; J96.02 - Acute respiratory failure with hypercapnia; J96.02 - Acute respiratory failure with hypercapnia; J96.02 - Acute respiratory failure with hypercapnia (2) DM type 2, uncontrolled, with lower extremity ulcer Code(s): E11.622 - TYPE 2 DIABETES MELLITUS WITH OTHER SKIN ULCER; E11.65 - TYPE 2 DIABETES MELLITUS WITH HYPERGLYCEMIA; L97.909 - NON-PRS CHRONIC ULC UNSP PRT OF UNSP LOW LEG W UNSP SEVERITY Status: Acute (3) PNA (pneumonia) Code(s): J18.9 - PNEUMONIA, UNSPECIFIED ORGANISM Status: Acute Qualifiers: Pneumonia type: due to unspecified organism Laterality: bilateral Lung location: unspecified part of lung Qualified Code(s): J18.9 - Pneumonia, unspecified organism (4) Sepsis Code(s): A41.9 - SEPSIS, UNSPECIFIED ORGANISM Status: Acute Qualifiers: Sepsis type: sepsis due to unspecified organism Qualified Code(s): A41.9 - Sepsis, unspecified organism (5) Bipolar disorder Code(s): F31.9 - BIPOLAR DISORDER, UNSPECIFIED Status: Chronic Qualifiers: Active/Remission status: remission status unspecified Qualified Code(s): F31.9 - Bipolar disorder, unspecified (6) Hypothyroid Code(s): E03.9 - HYPOTHYROIDISM, UNSPECIFIED Status: Chronic Qualifiers: Hypothyroidism type: acquired Qualified Code(s): E03.9 - Hypothyroidism, unspecified Comment: s/p iodine ablation (7) Osteomyelitis Code(s): M86.9 - OSTEOMYELITIS, UNSPECIFIED Status: Chronic Qualifiers: Osteomyelitis type: unspecified type Osteomyelitis location: foot Laterality: right Qualified Code(s): M86.9 - Osteomyelitis, unspecified - Plan * Persistent bilateral interstitial infiltrates with harsh rales on exam. * Did not tolerate weaning today with sedation holiday. * Continue ventilator support. * Pulmonology following. * Prior bronch with secretions and plugging. * Treat for pneumonia. * Cefepime and Levaquin * All cultures negative for pathogens. * Surgery following ulcerations of toes. * Blood sugars are well controlled.
[2017-07-21] MEDS: OXcarbazepine 300 MG TAB PO SCH (20:31)
[2017-07-21] MEDS: Enoxaparin Sodium 40 MG/0.4 ML SYRINGE SC SCH (20:32)
[2017-07-21] MEDS: INSULIN GLARGINE SC SCH (20:33)
[2017-07-22 04:49] LABS: Anion Gap 14 mmol/L (10-20); BUN (Urea Nitrogen) 23 mg/dL (7.0-18.7); Calc. Creatinine Clearance 190 mL/min (70-130); Calcium 7.6 mg/dL (7.8-10.44); Carbon Dioxide 30 mmol/L (22-29); Chloride 98 mmol/L (98-107); Estimated GFR-MDRD Greater than 90; Glucose 174 mg/dL (70-105); Sodium 138 mmol/L (136-145)
[2017-07-22 05:23] LABS: Band 2 % (5-11); Lymphocytes 13 % (21-51); MDiff Complete? YES; Mean Corpuscular HGB CONC 33.6 g/dL (32.0-36.0); Mean Corpuscular Hemoglobin 31.8 pg (27.0-31.0); Mean Corpuscular Volume 94.7 fl (81.0-99.0); Monocytes 4 % (0-10); Neutrophil 81 % (42-75); Platelet Count 198 thou/uL (130-400); RBC Distribution Width 13.6 % (11.5-14.5); Red Blood Cell (RBC) Count 3.46 mill/uL (4.20-5.40); White Blood Cell (WBC) Count 19.5 thou/uL (4.8-10.8)
[2017-07-22] MEDS: Sodium Chloride 0.9% 1,000 ML IV SCH ×2 (06:01→10:57)
[2017-07-22] MEDS: Levothyroxine Sodium 100 MCG TAB PO SCH (06:01)
[2017-07-22] MEDS: HumaLOG 300 UNITS/3 ML VIAL SC PRN ×4 (06:03→20:32)
[2017-07-22] MEDS: Budesonide 0.5 MG/2 ML NEB INH SCH ×2 (06:43→18:40)
[2017-07-22 07:01] LABS: CO2 Tension 46.4 mmHg (35.0-45.0); pH, Arterial 7.44 (7.35-7.45)
[2017-07-22 07:02] LABS: Actual Bicarbonate (HCO3a) 30.8 mEq/L (22-28); Base Excess (BEa) 5.8 mEq/L (-2.0 to +3.0); Hematocrit-ABG 36.6 % (36.0-47.0); Hemoglobin (Hb) 11.1 g/dL (12.0-16.0); O2 Tension (PaO2) 55.4 mmHg (80.0-100.0); Puncture Site RRA
[2017-07-22] MEDS: Propofol 1,000 MG/100 ML VIAL IV PRN ×4 (08:00→22:22)
[2017-07-22] MEDS: busPIRone HCl 10 MG TAB PO SCH ×2 (08:25→20:31)
[2017-07-22] MEDS: Furosemide 20 MG/2 ML VIAL SLOW IVP SCH (08:26)
[2017-07-22] MEDS: Cefepime 2 GM in Sodium Chloride 0.9% 100 ML IVPB SCH ×2 (08:26→20:31)
[2017-07-22] MEDS: Fluconazole In NaCl,Iso-Osm 200 MG in Premix Bag 1 BAG IVPB SCH (08:26)
[2017-07-22] MEDS: Pantoprazole 40 MG VIAL IVP SCH (08:29)
[2017-07-22] MEDS: INSULIN GLARGINE SC SCH ×2 (08:29→20:30)
--- NOTE | 2017-07-22 08:31 | PRG ---
DATE OF SERVICE: 07/22/2017 She is intubated on the vent. She is awake. PHYSICAL EXAMINATION: VITAL SIGNS: Temperature is 98, pulse is 100, blood pressure 109/62. I's and O's 3628 in, 250 out. Maximum temperature was 98. CHESTS: Chest revealed decreased breath sounds with minimal rhonchi. CARDIAC: Normal S1, S2, no gallops. ABDOMEN: Soft. White count 19,000, H&H 11 and 32, platelet count 198, pO2 55, pCO2 46.44, rate of 8, 50%, total pres sure support, 10 of PEEP. Electrolytes are normal. Bicarb is 30. IMPRESSION: 1. Respiratory failure. 2. Bilateral bronchial pneumonia. 3. Adult respiratory distress syndrome. 4. Morbid obesity. 5. Bipolar, schizophrenia. 6. Diabetes. X-ray shows diffuse infiltrates. PLAN: She is not weanable at this stage. Vent is being adjusted. Continue broad-spectrum antibiotics. Bronchoscopy cultures all negative except for yeast. I will follow. One-half hour critical care time.
[2017-07-22] MEDS ORDERED: Non-Formulary Item 1 EACH (Gabapentin [Gabapentin] 1 TAB) PO SCH (09:00)
[2017-07-22] MEDS: Gabapentin 400 MG CAP PO SCH ×3 (09:05→20:31)
[2017-07-22] MEDS: fentaNYL Citrate/PF 2,000 MCG in Sodium Chloride 0.9% 60 ML IV SCH (09:13)
--- NOTE | 2017-07-22 09:20 | RAD ---
PORTABLE SEMI UPRIGHT FRONTAL CHEST RADIOGRAPH: Date: 07-22-17 Comparison: 07-21-17 History: Ventilated CCU patient. FINDINGS: Stable endotracheal tube and nasogastric tube. No pneumothorax is evident. There are coarse interstit ial and alveolar opacities noted throughout both lungs with a perihilar and basilar predominance. Aeration within both lungs is similar when compared to prior imaging. IMPRESSION: No significant interval change in prominent diffuse interstitial and alveolar opacity. POS: [facility]
[2017-07-22] MEDS: Micafungin 100 MG in Sodium Chloride 0.9% 100 ML IVPB SCH (09:23)
--- NOTE | 2017-07-22 15:59 | PDOC.PN ---
- Subjective Encounter Start Date: 07/22/17 Encounter Start Time: 15:58 -: non-verbal Has had some back discomfort and as expected having some trouble coping with the prolonged ICU stay. - Objective Resuscitation Status: Resuscitation Status FULL:Full Resuscitation Vital Signs & Weight: Vital Signs (12 hours) Temp Pulse Pulse Pulse Resp BP BP 07/22/17 14:36 65 101/53 L 07/22/17 14:35 66 8 L 07/22/17 14:00 10 L 07/22/17 11:49 98.6 F 18 07/22/17 11:11 67 114/66 07/22/17 11:10 71 17 07/22/17 10:25 68 65 115/65 07/22/17 10:00 98.6 F 15 07/22/17 07:56 29 H 07/22/17 07:16 98.5 F 77 19 07/22/17 06:43 74 125/75 07/22/17 06:41 77 24 H 07/22/17 06:00 21 H 07/22/17 04:00 98.4 F 19 BP Pulse Ox Pulse Ox Pulse Ox 07/22/17 14:36 07/22/17 14:35 98 07/22/17 14:00 07/22/17 11:49 07/22/17 11:11 07/22/17 11:10 95 07/22/17 10:25 121/75 98 97 07/22/17 10:00 07/22/17 07:56 07/22/17 07:16 95 07/22/17 06:43 07/22/17 06:41 90 L 07/22/17 06:00 07/22/17 04:00 Weight Admit Weight 235 lb Weight 242 lb 1.081 oz Most Recent Monitor Data Heart Rate from ECG 71 NIBP 94/46 NIBP BP-Mean 63 Respiration from ECG 16 SpO2 91 I&O: 07/21/17 07/22/17 07/23/17 06:59 06:59 06:59 Intake Total 3596.2 3628.5 510 Output Total 3820 2500 765 Balance -223.8 1128.5 -255 Result Diagrams: 07/22/17 04:05 07/22/17 04:05 Additional Labs: Accuchecks 07/22/17 07/22/17 07/22/17 11:35 08:03 04:13 POC Glucose 170 H 142 H 173 H 07/22/17 07/21/17 00:16 20:29 POC Glucose 138 H 92 Phys Exam - Physical Examination Constitutional: NAD Intubated, but HEENT: PERRLA Diffuse, scattered rales with decreased breath sounds. Cardiovascular: RRR, no significant murmur Gastrointestinal: soft, non-tender, no distention Musculoskeletal: no edema Dx/Plan (1) Acute respiratory failure Code(s): J96.00 - ACUTE RESPIRATORY FAILURE, UNSP W HYPOXIA OR HYPERCAPNIA Status: Acute Qualifiers: Respiratory failure complication: hypoxia and hypercapnia Qualified Code(s) : J96.01 - Acute respiratory failure with hypoxia; J96.02 - Acute respiratory failure with hypercapnia; J96.02 - Acute respiratory failure with hypercapnia; J96.02 - Acute respiratory failure with hypercapnia Plan: DIFFUSE INTERSTITIAL INFILTRATES BILATERALLY. CULTURES NEGATIVE EXCEPT YEAST. MICAFUNGIN STARTED TODAY AND BROAD ANTIBACTERIAL COVERAGE CONTINUES. CONTINUE THE VENTILATOR SUPPORT PER PULMONOLOGY. (2) DM type 2, uncontrolled, with lower extremity ulcer Code(s): E11.622 - TYPE 2 DIABETES MELLITUS WITH OTHER SKIN ULCER; E11.65 - TYPE 2 DIABETES MELLITUS WITH HYPERGLYCEMIA; L97.909 - NON-PRS CHRONIC ULC UNSP PRT OF UNSP LOW LEG W UNSP SEVERITY Status: Acute Plan: STABLE (3) PNA (pneumonia) Code(s): J18.9 - PNEUMONIA, UNSPECIFIED ORGANISM Status: Acute Qualifiers: Pneumonia type: due to unspecified organism Laterality: bilateral Lung location: unspecified part of lung Qualified Code(s): J18.9 - Pneumonia, unspecified organism Plan: CEFEPIME, LEVAQUIN, MICAFUNGIN. CULTURES NEGATIVE EXCEPT YEAST WHICH MAY OR MAY NOT BE A TRUE PATHOGEN. (4) Sepsis Code(s): A41.9 - SEPSIS, UNSPECIFIED ORGANISM Status: Resolved Qualifiers: Sepsis type: sepsis due to unspecified organism Qualified Code(s): A41.9 - Sepsis, unspecified organism (5) Bipolar disorder Code(s): F31.9 - BIPOLAR DISORDER, UNSPECIFIED Status: Chronic Qualifiers: Active/Remission status: remission status unspecified Qualified Code(s): F31.9 - Bipolar disorder, unspecified (6) Hypothyroid Code(s): E03.9 - HYPOTHYROIDISM, UNSPECIFIED Status: Chronic Qualifiers: Hypothyroidism type: acquired Qualified Code(s): E03.9 - Hypothyroidism, unspecified Comment: s/p iodine ablation (7) Osteomyelitis Code(s): M86.9 - OSTEOMYELITIS, UNSPECIFIED Status: Chronic Qualifiers: Osteomyelitis type: unspecified type Osteomyelitis location: foot Laterality: right Qualified Code(s): M86.9 - Osteomyelitis, unspecified - Plan * ABOVE.
[2017-07-22] MEDS: OXcarbazepine 300 MG TAB PO SCH (20:31)
[2017-07-22] MEDS: Enoxaparin Sodium 40 MG/0.4 ML SYRINGE SC SCH (20:31)
[2017-07-23 06:18] LABS: Anion Gap 14 mmol/L (10-20); BUN (Urea Nitrogen) 31 mg/dL (7.0-18.7); Calc. Creatinine Clearance 167 mL/min (70-130); Calcium 7.6 mg/dL (7.8-10.44); Carbon Dioxide 30 mmol/L (22-29); Chloride 97 mmol/L (98-107); Estimated GFR-MDRD 80; Glucose 238 mg/dL (70-105); Potassium 4.4 mmol/L (3.5-5.1); Sodium 137 mmol/L (136-145)
[2017-07-23] MEDS: Budesonide 0.5 MG/2 ML NEB INH SCH ×2 (06:42→18:37)
[2017-07-23] MEDS: Levothyroxine Sodium 100 MCG TAB PO SCH (06:46)
[2017-07-23] MEDS: Sodium Chloride 0.9% 1,000 ML IV SCH ×3 (06:46→17:15)
[2017-07-23] MEDS: HumaLOG 300 UNITS/3 ML VIAL SC PRN ×4 (06:47→20:21)
[2017-07-23 06:52] LABS: Hemoglobin 10.3 g/dL (12.0-16.0); Mean Corpuscular HGB CONC 32.8 g/dL (32.0-36.0); Mean Corpuscular Hemoglobin 31.6 pg (27.0-31.0); Mean Corpuscular Volume 96.3 fl (81.0-99.0); Mean Platelet Volume 9.2 fL (7.4-10.4); Platelet Count 202 thou/uL (130-400); RBC Distribution Width 13.8 % (11.5-14.5); Red Blood Cell (RBC) Count 3.25 mill/uL (4.20-5.40); White Blood Cell (WBC) Count 17.9 thou/uL (4.8-10.8)
[2017-07-23 07:11] LABS: Actual Bicarbonate (HCO3a) 31.4 mEq/L (22-28); Base Excess (BEa) 5.8 mEq/L (-2.0 to +3.0); CO2 Tension 52.2 mmHg (35.0-45.0); Calcium, Ionized 0.9 mmol/L (1.12-1.30); Hematocrit-ABG 29.4 % (36.0-47.0); O2 Tension (PaO2) 62.1 mmHg (80.0-100.0); Puncture Site RRA
[2017-07-23] MEDS: Propofol 1,000 MG/100 ML VIAL IV PRN ×3 (07:16→22:16)
[2017-07-23 07:45] LABS: Band 4 % (5-11); Eosinophils 1 % (0-10); Lymphocytes 9 % (21-51); MDiff Complete? YES; Metamyelocyte 1 % (0-0); Monocytes 1 % (0-10); Neutrophil 84 % (42-75); PLT Morphology Comment Appears Adequate; Polychromasia SLIGHT = 2-3 cells (100X) (0-2/hpf)
[2017-07-23] MEDS: Pantoprazole 40 MG VIAL IVP SCH (08:18)
[2017-07-23] MEDS: Cefepime 2 GM in Sodium Chloride 0.9% 100 ML IVPB SCH ×2 (08:18→20:17)
[2017-07-23] MEDS: Gabapentin 400 MG CAP PO SCH ×3 (08:18→20:17)
[2017-07-23] MEDS: Furosemide 20 MG/2 ML VIAL SLOW IVP SCH (08:18)
[2017-07-23] MEDS: INSULIN GLARGINE SC SCH ×2 (08:19→20:27)
[2017-07-23] MEDS: Micafungin 100 MG in Sodium Chloride 0.9% 100 ML IVPB SCH (08:19)
[2017-07-23] MEDS: busPIRone HCl 10 MG TAB PO SCH ×2 (08:19→20:20)
--- NOTE | 2017-07-23 08:34 | PRG ---
DATE OF SERVICE: 07/23/2017 This morning she is on the vent, sedated. PHYSICAL EXAMINATION: VITAL SIGNS: Blood pressure 95/56, pulse is 80, temperature 98, respirations 20. I's and O's 3628 i n, 240 out. CHEST: Chest reveals bilateral rhonchi and crackles. CARDIAC: Normal S1, S2, no gallops. ABDOMEN: Soft, no masses. LABORATORY: White count 17,000, H&H 10 and 31, platelet count 202, 84 segs, 4 bands. PO2 62, pCO2 5 7.40 on a rate of 8, 50%, high PEEP 28, low PEEP 12. Her electrolytes are normal. Glucose 201. X-ray still shows bilateral pulmonary infiltrates, though it appears somewhat better compared to the last 24 hours. IMPRESSION: 1. Respiratory failure. 2. Adult respiratory distress syndrome. 3. Bilateral pneumonia. 4. Diabetes. 5. Bipolar. PLAN: Decrease sedation, continue antibiotics, neb treatments, supportive care. Hopefully, we can wean and extubate in the next several days. This is day #7 on the vent. Discuss with family. Long-term prognosis is guarded. One-half hour critical care time.
--- NOTE | 2017-07-23 08:57 | RAD ---
CHEST ONE VIEW: History: Ventilated patient. Comparison: Prior day. FINDINGS: Patient is intubated. Endotracheal tube tip is just below the level of the clavicles. Enteric tube ti p not well seen. Extensive interstitial and alveolar opacities throughout the lungs. Cardiac silhouette is obscured. N o pneumothorax. IMPRESSION: Similar examination of the chest. POS: [facility]
--- NOTE | 2017-07-23 18:03 | PDOC.PN ---
- Subjective Encounter Start Date: 07/23/17 Encounter Start Time: 15:00 -: non-verbal - Objective Resuscitation Status: Resuscitation Status FULL:Full Resuscitation Vital Signs & Weight: Vital Signs (12 hours) Temp Pulse Pulse Resp BP BP Pulse Ox 07/23/17 15:50 98.5 F 17 07/23/17 15:00 65 101/62 07/23/17 14:59 65 15 97 07/23/17 13:49 15 07/23/17 12:00 20 07/23/17 11:57 74 115/64 07/23/17 11:56 98.5 F 07/23/17 10:42 68 107/62 07/23/17 10:40 67 18 92 L 07/23/17 09:56 17 07/23/17 07:49 98.5 F 17 07/23/17 07:20 98.5 F 69 15 93 L 07/23/17 07:15 98.5 F 07/23/17 06:43 68 118/69 07/23/17 06:41 67 18 95 Pulse Ox 07/23/17 15:50 07/23/17 15:00 07/23/17 14:59 07/23/17 13:49 07/23/17 12:00 07/23/17 11:57 96 07/23/17 11:56 07/23/17 10:42 07/23/17 10:40 07/23/17 09:56 07/23/17 07:49 07/23/17 07:20 07/23/17 07:15 07/23/17 06:43 07/23/17 06:41 Weight Admit Weight 235 lb Weight 242 lb 15.19 oz Most Recent Monitor Data Heart Rate from ECG 73 NIBP 116/72 NIBP BP-Mean 85 Respiration from ECG 21 SpO2 91 I&O: 07/22/17 07/23/17 07/24/17 06:59 06:59 06:59 Intake Total 3628.5 3026.5 452.2 Output Total 2500 1565 900 Balance 1128.5 1461.5 -447.8 Result Diagrams: 07/23/17 05:58 07/23/17 05:58 Additional Labs: Accuchecks 07/23/17 07/23/17 07/23/17 15:31 11:23 07:47 POC Glucose 132 H 162 H 201 H 07/23/17 07/22/17 05:57 20:32 POC Glucose 237 H 175 H Phys Exam - Physical Examination Constitutional: NAD VENTILATED AND SEDATED. DIFFUSE, SCATTERED WHEEZING WITH RALES. Cardiovascular: RRR, no significant murmur Gastrointestinal: soft, no distention, positive bowel sounds Musculoskeletal: no edema ISCHEMIC CHANGES TO RIGHT GREAT TOE AND LEFT GREAT TOE AMPUTATION. Skin: no rash Dx/Plan (1) Acute respiratory failure Code(s): J96.00 - ACUTE RESPIRATORY FAILURE, UNSP W HYPOXIA OR HYPERCAPNIA Status: Acute Qualifiers: Respiratory failure complication: hypoxia and hypercapnia Qualified Code(s) : J96.01 - Acute respiratory failure with hypoxia; J96.02 - Acute respiratory failure with hypercapnia; J96.02 - Acute respiratory failure with hypercapnia; J96.02 - Acute respiratory failure with hypercapnia Plan: FOLLOWED BY PULMONARY. WEANED TO BILEVEL TODAY. STILL DEPENDENT. (2) DM type 2, uncontrolled, with lower extremity ulcer Code(s): E11.622 - TYPE 2 DIABETES MELLITUS WITH OTHER SKIN ULCER; E11.65 - TYPE 2 DIABETES MELLITUS WITH HYPERGLYCEMIA; L97.909 - NON-PRS CHRONIC ULC UNSP PRT OF UNSP LOW LEG W UNSP SEVERITY Status: Acute Plan: BLOOD SUGARS ARE REASONABLY WELL CONTROLLED. CONTINUE SAME. (3) PNA (pneumonia) Code(s): J18.9 - PNEUMONIA, UNSPECIFIED ORGANISM Status: Acute Qualifiers: Pneumonia type: due to unspecified organism Laterality: bilateral Lung location: unspecified part of lung Qualified Code(s): J18.9 - Pneumonia, unspecified organism Plan: DIFFUSE BILATERAL INFILTRATES. CONTINUE CEFEPIME AND LEVAQUIN AND MICAFUNGIN. LIKE ARDS. (4) Sepsis Code(s): A41.9 - SEPSIS, UNSPECIFIED ORGANISM Status: Resolved Qualifiers: Sepsis type: sepsis due to unspecified organism Qualified Code(s): A41.9 - Sepsis, unspecified organism (5) Bipolar disorder Code(s): F31.9 - BIPOLAR DISORDER, UNSPECIFIED Status: Chronic Qualifiers: Active/Remission status: remission status unspecified Qualified Code(s): F31.9 - Bipolar disorder, unspecified (6) Hypothyroid Code(s): E03.9 - HYPOTHYROIDISM, UNSPECIFIED Status: Chronic Qualifiers: Hypothyroidism type: acquired Qualified Code(s): E03.9 - Hypothyroidism, unspecified Comment: s/p iodine ablation (7) Osteomyelitis Code(s): M86.9 - OSTEOMYELITIS, UNSPECIFIED Status: Chronic Qualifiers: Osteomyelitis type: unspecified type Osteomyelitis location: foot Laterality: right Qualified Code(s): M86.9 - Osteomyelitis, unspecified - Plan * CONTINUE WITH ICU CARE AND VENTILATOR SUPPORT. PULMONARY WEANING TOLERATED.
[2017-07-23] MEDS: Enoxaparin Sodium 40 MG/0.4 ML SYRINGE SC SCH (20:16)
[2017-07-23] MEDS: OXcarbazepine 300 MG TAB PO SCH (20:27)
[2017-07-23] MEDS: fentaNYL Citrate/PF 2,000 MCG in Sodium Chloride 0.9% 60 ML IV SCH (21:01)
[2017-07-24 05:00] LABS: #Eosinphils 0.5 thou/uL (0.0-0.7); #Lymphocytes 2.6 thou/uL (1.20-3.40); #Monocytes 0.5 thou/uL (0.11-0.59); #Neutrophils 10.4 thou/uL (1.40-6.50); %Basophils 0.1 % (0.0-1.0); %Eosinophils 3.8 % (0.0-10.0); %Lymphocytes 18.7 % (21.0-51.0); %Monocytes 3.3 % (0.0-10.0); %Neutrophils 74.1 % (42.0-75.0); Hemoglobin 9.7 g/dL (12.0-16.0); Mean Corpuscular HGB CONC 32.9 g/dL (32.0-36.0); Mean Corpuscular Hemoglobin 31.9 pg (27.0-31.0); Mean Platelet Volume 9.4 fL (7.4-10.4); Platelet Count 194 thou/uL (130-400); RBC Distribution Width 13.7 % (11.5-14.5); Red Blood Cell (RBC) Count 3.05 mill/uL (4.20-5.40)
[2017-07-24 05:08] LABS: Anion Gap 10 mmol/L (10-20); BUN (Urea Nitrogen) 32 mg/dL (7.0-18.7); Calc. Creatinine Clearance 165 mL/min (70-130); Calcium 7.4 mg/dL (7.8-10.44); Carbon Dioxide 33 mmol/L (22-29); Chloride 101 mmol/L (98-107); Estimated GFR-MDRD 79; Glucose 107 mg/dL (70-105); Potassium 3.6 mmol/L (3.5-5.1); Sodium 140 mmol/L (136-145)
[2017-07-24] MEDS: Levothyroxine Sodium 100 MCG TAB PO SCH (05:21)
[2017-07-24] MEDS: Sodium Chloride 0.9% 1,000 ML IV SCH (06:40)
[2017-07-24] MEDS: Propofol 1,000 MG/100 ML VIAL IV PRN (06:40)
[2017-07-24] MEDS: Budesonide 0.5 MG/2 ML NEB INH SCH (07:35)
[2017-07-24 07:50] LABS: pH, Arterial 7.42 (7.35-7.45)
[2017-07-24 07:51] LABS: Actual Bicarbonate (HCO3a) 31.6 mEq/L (22-28); Base Excess (BEa) 6.2 mEq/L (-2.0 to +3.0); Hematocrit-ABG 31.9 % (36.0-47.0); Hemoglobin (Hb) 9.8 g/dL (12.0-16.0); O2 Tension (PaO2) 48.3 mmHg (80.0-100.0)
[2017-07-24 07:52] LABS: Puncture Site RR
[2017-07-24] MEDS ORDERED: Furosemide 20 MG/2 ML VIAL SLOW IVP SCH (07:52)
--- NOTE | 2017-07-24 08:05 | PRG ---
DATE OF SERVICE: 07/24/2017 This morning she is awake, alert and responsive, on the vent. She is sedated. PHYSICAL EXAMINATION: VITAL SIGNS: Blood pressure 120/53, pulse 67, sats are 94% on 40%, 10 of PEEP. Afebrile. I's and O 's are 3026 in, 1565 out. CHEST: Chest revealed decreased breath sounds without any wheezing. CARDIAC: Normal S1, S2, no gallops. ABDOMEN: Soft, no masses. LABORTORY: Her electrolytes are normal. White count 14,000, H&H 8 and 29. All cultures so far are negative except for yeast. IMPRESSION: 1. Respiratory failure, probably an element of diastolic function. 2. Bipolar. 3. Respiratory failure. 4. Chronic pain. PLAN: We are going to hold sedation. We are going to try and see if she is weanable. This is day #7 on the vent. Continue nutrition, PT. One-half hour critical care time.
--- NOTE | 2017-07-24 08:10 | RAD ---
CHEST 1 VIEW: HISTORY: Dyspnea. Followup. COMPARISON: 07/23/17. FINDINGS: Cardiac silhouette remains magnified and predominantly obscured by pulmonary vascular congestion and widespread fluffy infiltrate. Mediastinum is midline. Lines and tubes appear unchanged in position. Gas is now evident over the left upper and lateral chest wall. No evidence of pneumothorax. IMPRESSION: 1. Small pockets of gas visible over the left upper and left lateral chest wall. Cause is not evide nt. 2. Pulmonary edema and other findings are otherwise stable. POS: [facility]
[2017-07-24] MEDS: Gabapentin 400 MG CAP PO SCH ×3 (08:28→20:26)
[2017-07-24] MEDS: busPIRone HCl 10 MG TAB PO SCH ×2 (08:28→20:28)
[2017-07-24] MEDS: Cefepime 2 GM in Sodium Chloride 0.9% 100 ML IVPB SCH ×2 (08:29→20:21)
[2017-07-24] MEDS: Pantoprazole 40 MG VIAL IVP SCH (08:30)
[2017-07-24] MEDS: Furosemide 40 MG/4 ML VIAL SLOW IVP SCH (08:30)
[2017-07-24] MEDS: Micafungin 100 MG in Sodium Chloride 0.9% 100 ML IVPB SCH (08:41)
[2017-07-24] MEDS: INSULIN GLARGINE SC SCH ×2 (08:41→20:32)
[2017-07-24] MEDS ORDERED: DC Sedation Protocol FS ONE (10:08)
--- NOTE | 2017-07-24 16:43 | PDOC.PN ---
- Subjective Encounter Start Date: 07/24/17 Encounter Start Time: 15:00 EXTUBATED THIS MORNING. FATIGUED. - Objective Resuscitation Status: Resuscitation Status FULL:Full Resuscitation Vital Signs & Weight: Vital Signs (12 hours) Temp Pulse Pulse Pulse Resp BP BP 07/24/17 15:21 75 20 07/24/17 12:00 98.9 F 07/24/17 11:39 87 82 130/70 07/24/17 11:08 75 20 07/24/17 08:00 98.6 F 69 19 110/60 07/24/17 07:35 67 102/53 L BP Pulse Ox Pulse Ox Pulse Ox 07/24/17 15:21 95 07/24/17 12:00 91 L 07/24/17 11:39 142/73 H 93 L 93 L 07/24/17 11:08 92 L 07/24/17 08:00 91 L 07/24/17 07:35 Weight Admit Weight 235 lb Weight 246 lb 11.156 oz Most Recent Monitor Data Heart Rate from ECG 84 NIBP 135/69 NIBP BP-Mean 82 Respiration from ECG 28 SpO2 91 I&O: 07/23/17 07/24/17 07/25/17 06:59 06:59 06:59 Intake Total 3026.5 2500.8 230 Output Total 1565 1724 2480 Balance 1461.5 776.8 -2250 Result Diagrams: 07/24/17 04:46 07/24/17 04:46 Additional Labs: Accuchecks 07/24/17 07/24/17 07/24/17 12:08 08:29 04:31 POC Glucose 127 H 103 109 07/24/17 07/23/17 00:04 19:47 POC Glucose 106 159 H Phys Exam - Physical Examination Constitutional: NAD HEENT: PERRLA Neck: no JVD, supple SCATTERED WHEEZING AND RALES PRESENT Cardiovascular: RRR, no significant murmur Gastrointestinal: soft, no distention, positive bowel sounds Musculoskeletal: no edema L 1ST TOE AMPUTATION, RIGHT WITH NECROSIS ON DORSUM. Neurological: non-focal Dx/Plan (1) Acute respiratory failure Code(s): J96.00 - ACUTE RESPIRATORY FAILURE, UNSP W HYPOXIA OR HYPERCAPNIA Status: Acute Qualifiers: Respiratory failure complication: hypoxia and hypercapnia Qualified Code(s) : J96.01 - Acute respiratory failure with hypoxia; J96.02 - Acute respiratory failure with hypercapnia; J96.02 - Acute respiratory failure with hypercapnia; J96.02 - Acute respiratory failure with hypercapnia Plan: PNEUMONIA/ARDS. PULMONARY MANAGING. PATIENT EXTUBATED THIS MORNING. DOING WELL WITH GOOD SATS IN SPITE OF WHEEZES AND RALES. (2) DM type 2, uncontrolled, with lower extremity ulcer Code(s): E11.622 - TYPE 2 DIABETES MELLITUS WITH OTHER SKIN ULCER; E11.65 - TYPE 2 DIABETES MELLITUS WITH HYPERGLYCEMIA; L97.909 - NON-PRS CHRONIC ULC UNSP PRT OF UNSP LOW LEG W UNSP SEVERITY Status: Acute Plan: EXCELLENT CONTROL. NO CHANGE. (3) PNA (pneumonia) Code(s): J18.9 - PNEUMONIA, UNSPECIFIED ORGANISM Status: Acute Qualifiers: Pneumonia type: due to unspecified organism Laterality: bilateral Lung location: unspecified part of lung Qualified Code(s): J18.9 - Pneumonia, unspecified organism Plan: CEFEPIME, LEVAQUIN, MICAFUNGIN (4) Sepsis Code(s): A41.9 - SEPSIS, UNSPECIFIED ORGANISM Status: Resolved Qualifiers: Sepsis type: sepsis due to unspecified organism Qualified Code(s): A41.9 - Sepsis, unspecified organism (5) Bipolar disorder Code(s): F31.9 - BIPOLAR DISORDER, UNSPECIFIED Status: Chronic Qualifiers: Active/Remission status: remission status unspecified Qualified Code(s): F31.9 - Bipolar disorder, unspecified (6) Hypothyroid Code(s): E03.9 - HYPOTHYROIDISM, UNSPECIFIED Status: Chronic Qualifiers: Hypothyroidism type: acquired Qualified Code(s): E03.9 - Hypothyroidism, unspecified Comment: s/p iodine ablation (7) Osteomyelitis Code(s): M86.9 - OSTEOMYELITIS, UNSPECIFIED Status: Chronic Qualifiers: Osteomyelitis type: unspecified type Osteomyelitis location: foot Laterality: right Qualified Code(s): M86.9 - Osteomyelitis, unspecified Plan: SECONDARY ISSUE UNTIL PULMONARY STATUS IMPROVES. MAY NEED FURTHER CONFIRMATION. - Plan * ABOVE.
[2017-07-24] MEDS: Enoxaparin Sodium 40 MG/0.4 ML SYRINGE SC SCH (20:24)
[2017-07-24] MEDS: OXcarbazepine 300 MG TAB PO SCH (21:13)
[2017-07-24] MEDS: Labetalol HCl 100 MG/20 ML VIAL SLOW IVP PRN (23:08)
[2017-07-24] MEDS: HumaLOG 300 UNITS/3 ML VIAL SC PRN (23:20)
[2017-07-25 04:18] LABS: #Eosinphils 0.2 thou/uL (0.0-0.7); #Lymphocytes 1.5 thou/uL (1.20-3.40); #Monocytes 0.4 thou/uL (0.11-0.59); #Neutrophils 10.6 thou/uL (1.40-6.50); %Basophils 0.1 % (0.0-1.0); %Eosinophils 1.3 % (0.0-10.0); %Lymphocytes 11.8 % (21.0-51.0); %Monocytes 2.7 % (0.0-10.0); Hemoglobin 10.9 g/dL (12.0-16.0); Mean Corpuscular Hemoglobin 31.4 pg (27.0-31.0); Mean Platelet Volume 8.6 fL (7.4-10.4); Platelet Count 248 thou/uL (130-400); RBC Distribution Width 13.4 % (11.5-14.5); Red Blood Cell (RBC) Count 3.47 mill/uL (4.20-5.40); White Blood Cell (WBC) Count 12.6 thou/uL (4.8-10.8)
[2017-07-25 04:33] LABS: Anion Gap 11 mmol/L (10-20); BUN (Urea Nitrogen) 18 mg/dL (7.0-18.7); Calc. Creatinine Clearance 208 mL/min (70-130); Calcium 7.8 mg/dL (7.8-10.44); Carbon Dioxide 34 mmol/L (22-29); Chloride 96 mmol/L (98-107); Estimated GFR-MDRD Greater than 90; Glucose 143 mg/dL (70-105); Potassium 3.8 mmol/L (3.5-5.1); Sodium 137 mmol/L (136-145)
[2017-07-25] MEDS: Levothyroxine Sodium 100 MCG TAB PO SCH (06:09)
[2017-07-25] MEDS: busPIRone HCl 10 MG TAB PO SCH ×2 (07:34→20:56)
[2017-07-25] MEDS: Pantoprazole 40 MG VIAL IVP SCH (07:34)
[2017-07-25] MEDS: Gabapentin 400 MG CAP PO SCH ×3 (07:34→20:57)
[2017-07-25] MEDS: INSULIN GLARGINE SC SCH ×2 (07:35→20:59)
[2017-07-25] MEDS: Furosemide 40 MG/4 ML VIAL SLOW IVP SCH (07:35)
[2017-07-25] MEDS: Cefepime 2 GM in Sodium Chloride 0.9% 100 ML IVPB SCH (07:35)
--- NOTE | 2017-07-25 08:31 | PRG ---
DATE OF SERVICE: 07/25/2017 This morning she is awake, alert, responsive post-extubation. She is much improved. Encephalopathy is better. PHYSICAL EXAMINATION: VITAL SIGNS: Sats are still low at 91-92% on 4 liters, pulse 69, blood pressure 130/71. She is eage r to eat some breakfast. I's and O's are 2500 in, 1724 out. CHEST: Chest revealed decreased breath sounds, no wheezing. CARDIAC: Normal S1-S2. No gallops. ABDOMEN: Massive. EXTREMITIES: No edema. NEURO: Neurologically, she is appropriate. LABORATORY: White count 10,000, H&H 10 and 32, platelet count normal. Electrolytes are normal. Bic arb is 34. BUN and creatinine are unremarkable. IMPRESSION: 1. Respiratory failure. 2. Adult respiratory distress syndrome. 3. Aspiration pneumonia. 4. Bipolar schizophrenic. 5. Hypothyroidism. 6. Morbid obesity. 7. Diabetes. PLAN: Diabetic diet is initiated, p.o. medication is initiated. She can be transferred later on fro m the ICU to a monitored bed for 24-48 hours. Hopefully continue with the LETI Braga and supportive c are. I will follow. One-half hour critical care time.
[2017-07-25] MEDS: Fluconazole 100 MG TAB PO SCH (09:38)
[2017-07-25] MEDS: Cefdinir 300 MG CAP PO SCH ×2 (09:38→20:57)
[2017-07-25] MEDS: HumaLOG 300 UNITS/3 ML VIAL SC PRN ×2 (11:23→15:45)
[2017-07-25] MEDS: Labetalol HCl 100 MG/20 ML VIAL SLOW IVP PRN (11:25)
--- NOTE | 2017-07-25 15:25 | PDOC.PN ---
- Subjective Encounter Start Date: 07/25/17 Encounter Start Time: 03:00 DOING VERY WELL. BREATHING COMFORTABLY. HAS EATEN. THROAT IS A LITTLE SORE. NO OTHER COMPLAINTS. - Objective Resuscitation Status: Resuscitation Status FULL:Full Resuscitation MAR Reviewed: Yes Vital Signs & Weight: Vital Signs (12 hours) Temp Pulse Pulse Pulse Resp BP BP 07/25/17 14:27 67 18 07/25/17 11:00 98.1 F 07/25/17 10:49 70 17 07/25/17 08:54 69 69 140/84 135/85 07/25/17 08:00 98.4 F 69 24 H 07/25/17 07:00 98.4 F 07/25/17 06:14 07/25/17 06:12 69 20 07/25/17 04:00 98.1 F Pulse Ox Pulse Ox Pulse Ox 07/25/17 14:27 96 07/25/17 11:00 07/25/17 10:49 99 07/25/17 08:54 92 L 94 L 07/25/17 08:00 90 L 07/25/17 07:00 07/25/17 06:14 96 07/25/17 06:12 96 07/25/17 04:00 Weight Admit Weight 235 lb Weight 247 lb 2.211 oz Most Recent Monitor Data Heart Rate from ECG 70 NIBP 137/78 NIBP BP-Mean 96 Respiration from ECG 23 SpO2 91 I&O: 07/24/17 07/25/17 07/26/17 06:59 06:59 06:59 Intake Total 2500.8 1730 480 Output Total 1724 4580 2070 Balance 776.8 -2850 -1590 Result Diagrams: 07/25/17 04:01 07/25/17 04:01 Additional Labs: Accuchecks 07/25/17 07/25/17 07/24/17 10:59 03:30 23:20 POC Glucose 273 H 136 H 151 H 07/24/17 07/24/17 20:18 17:28 POC Glucose 122 H 105 Phys Exam - Physical Examination Constitutional: NAD HEENT: PERRLA, oral pharynx no lesions Neck: no JVD, supple Respiratory: no wheezing, no rales, no rhonchi, clear to auscultation bilateral SCATTERED RALES, BUT IMPROVED. Cardiovascular: RRR, no significant murmur, no rub Gastrointestinal: soft, non-tender, no distention, positive bowel sounds Musculoskeletal: no edema R GREAT TOE ULCER. Neurological: non-focal Psychiatric: normal affect, A&O x 3 Dx/Plan (1) Acute respiratory failure Code(s): J96.00 - ACUTE RESPIRATORY FAILURE, UNSP W HYPOXIA OR HYPERCAPNIA Status: Resolved Qualifiers: Respiratory failure complication: hypoxia and hypercapnia Qualified Code(s) : J96.01 - Acute respiratory failure with hypoxia; J96.02 - Acute respiratory failure with hypercapnia; J96.02 - Acute respiratory failure with hypercapnia; J96.02 - Acute respiratory failure with hypercapnia (2) DM type 2, uncontrolled, with lower extremity ulcer Code(s): E11.622 - TYPE 2 DIABETES MELLITUS WITH OTHER SKIN ULCER; E11.65 - TYPE 2 DIABETES MELLITUS WITH HYPERGLYCEMIA; L97.909 - NON-PRS CHRONIC ULC UNSP PRT OF UNSP LOW LEG W UNSP SEVERITY Status: Acute Plan: GENERALLY WELL CONTROLLED. NO CHANGE. (3) PNA (pneumonia) Code(s): J18.9 - PNEUMONIA, UNSPECIFIED ORGANISM Status: Acute Qualifiers: Pneumonia type: due to unspecified organism Laterality: bilateral Lung location: unspecified part of lung Qualified Code(s): J18.9 - Pneumonia, unspecified organism Plan: CONVERTED TO ORAL ANTIBIOTICS. MUCH IMPROVED. (4) Sepsis Code(s): A41.9 - SEPSIS, UNSPECIFIED ORGANISM Status: Resolved Qualifiers: Sepsis type: sepsis due to unspecified organism Qualified Code(s): A41.9 - Sepsis, unspecified organism (5) Bipolar disorder Code(s): F31.9 - BIPOLAR DISORDER, UNSPECIFIED Status: Chronic Qualifiers: Active/Remission status: remission status unspecified Qualified Code(s): F31.9 - Bipolar disorder, unspecified (6) Hypothyroid Code(s): E03.9 - HYPOTHYROIDISM, UNSPECIFIED Status: Chronic Qualifiers: Hypothyroidism type: acquired Qualified Code(s): E03.9 - Hypothyroidism, unspecified Comment: s/p iodine ablation (7) Osteomyelitis Code(s): M86.9 - OSTEOMYELITIS, UNSPECIFIED Status: Chronic Qualifiers: Osteomyelitis type: unspecified type Osteomyelitis location: foot Laterality: right Qualified Code(s): M86.9 - Osteomyelitis, unspecified Plan: DISCUSSED WITH PATIENT. 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 - Plan * TRANSFER TO THE FLOOR..
[2017-07-25] MEDS: Enoxaparin Sodium 40 MG/0.4 ML SYRINGE SC SCH (20:57)
[2017-07-25] MEDS: OXcarbazepine 300 MG TAB PO SCH (20:59)
[2017-07-26] MEDS: Levothyroxine Sodium 100 MCG TAB PO SCH (06:01)
[2017-07-26] MEDS: INSULIN GLARGINE SC SCH ×2 (09:30→21:16)
[2017-07-26] MEDS: Pantoprazole 40 MG VIAL IVP SCH (09:30)
[2017-07-26] MEDS: Fluconazole 100 MG TAB PO SCH (09:31)
[2017-07-26] MEDS: Cefdinir 300 MG CAP PO SCH ×2 (09:31→21:13)
[2017-07-26] MEDS: busPIRone HCl 10 MG TAB PO SCH ×2 (09:31→21:13)
[2017-07-26] MEDS: Gabapentin 400 MG CAP PO SCH ×3 (09:31→21:14)
[2017-07-26] MEDS: predniSONE 5 MG TAB PO SCH (09:32)
[2017-07-26] MEDS ORDERED: Chloraseptic Spray 180 ml Bottle PO PRN (10:48)
--- NOTE | 2017-07-26 10:56 | PDOC.PN ---
- Subjective Encounter Start Date: 07/26/17 Encounter Start Time: 10:54 VERY PRODUCTIVE COUGH. HAS SORE THROAT FROM THE ET TUBE AND THE COUGHING. - Objective Resuscitation Status: Resuscitation Status FULL:Full Resuscitation MAR Reviewed: Yes Vital Signs & Weight: Vital Signs (12 hours) Temp Pulse Resp BP Pulse Ox 07/26/17 10:39 90 14 07/26/17 07:15 99.1 F 81 18 137/75 92 L 07/26/17 04:00 99.2 F 83 16 129/78 92 L 07/26/17 02:12 86 24 H 07/26/17 01:08 97 Weight Admit Weight 235 lb Weight 240 lb 6.4 oz Most Recent Monitor Data Heart Rate from ECG 70 NIBP 137/78 NIBP BP-Mean 96 Respiration from ECG 23 SpO2 91 I&O: 07/25/17 07/26/17 07/27/17 06:59 06:59 06:59 Intake Total 1730 960 Output Total 4580 2270 Balance -2850 -1310 Result Diagrams: 07/25/17 04:01 07/25/17 04:01 Additional Labs: Accuchecks 07/26/17 07/25/17 07/25/17 06:08 20:51 17:04 POC Glucose 195 H 223 H 174 H 07/25/17 07/25/17 15:31 10:59 POC Glucose 225 H 273 H Phys Exam - Physical Examination Constitutional: NAD HEENT: PERRLA, oral pharynx no lesions Neck: no JVD, supple DIFFUSE, BILAT RALES Cardiovascular: RRR, no significant murmur Gastrointestinal: soft, non-tender, no distention, positive bowel sounds Musculoskeletal: no edema DARK, DISCOLORED ULCER ON PLANTAR R GREAT TOE. Neurological: non-focal Psychiatric: normal affect Skin: no rash, normal turgor Dx/Plan (1) ARDS (adult respiratory distress syndrome) Code(s): J80 - ACUTE RESPIRATORY DISTRESS SYNDROME Status: Acute Plan: IMPROVED. OFF THE VENT, BUT STILL HAS SUBSTANTIAL RALES. ON ORAL ABX, NEBS, OXYGEN NEEDED. ADD MUCOLYTIC. HAVE PT START WORKING WITH HER AGAIN. (2) Acute respiratory failure Code(s): J96.00 - ACUTE RESPIRATORY FAILURE, UNSP W HYPOXIA OR HYPERCAPNIA Status: Resolved Qualifiers: Respiratory failure complication: hypoxia and hypercapnia Qualified Code(s) : J96.01 - Acute respiratory failure with hypoxia; J96.02 - Acute respiratory failure with hypercapnia; J96.02 - Acute respiratory failure with hypercapnia; J96.02 - Acute respiratory failure with hypercapnia (3) DM type 2, uncontrolled, with lower extremity ulcer Code(s): E11.622 - TYPE 2 DIABETES MELLITUS WITH OTHER SKIN ULCER; E11.65 - TYPE 2 DIABETES MELLITUS WITH HYPERGLYCEMIA; L97.909 - NON-PRS CHRONIC ULC UNSP PRT OF UNSP LOW LEG W UNSP SEVERITY Status: Acute Plan: BLOOD SUGARS HAVE INCREASED A BIT WITH RESUMING A DIET. MAY NEED TO MAKE SOME MED CHANGES IF PERSISTS BY TOMORROW. WAS ON LONG ACTING INSULIN PRIOR TO ADMISSION. (4) PNA (pneumonia) Code(s): J18.9 - PNEUMONIA, UNSPECIFIED ORGANISM Status: Acute Qualifiers: Pneumonia type: due to unspecified organism Laterality: bilateral Lung location: unspecified part of lung Qualified Code(s): J18.9 - Pneumonia, unspecified organism Plan: ORAL OMINICEF. (5) Sepsis Code(s): A41.9 - SEPSIS, UNSPECIFIED ORGANISM Status: Resolved Qualifiers: Sepsis type: sepsis due to unspecified organism Qualified Code(s): A41.9 - Sepsis, unspecified organism (6) Bipolar disorder Code(s): F31.9 - BIPOLAR DISORDER, UNSPECIFIED Status: Chronic Qualifiers: Active/Remission status: remission status unspecified Qualified Code(s): F31.9 - Bipolar disorder, unspecified Plan: CONTINUING USUAL HOME MEDS. (7) Hypothyroid Code(s): E03.9 - HYPOTHYROIDISM, UNSPECIFIED Status: Chronic Qualifiers: Hypothyroidism type: acquired Qualified Code(s): E03.9 - Hypothyroidism, unspecified Comment: s/p iodine ablation, HOME SYNTHROID CONTINUED. (8) Osteomyelitis Code(s): M86.9 - OSTEOMYELITIS, UNSPECIFIED Status: Chronic Qualifiers: Osteomyelitis type: unspecified type Osteomyelitis location: foot Laterality: right Qualified Code(s): M86.9 - Osteomyelitis, unspecified - Plan * ABOVE. * D/C [facility]. * CHLORASEPTIC SPRAY FOR ST.
[2017-07-26] MEDS: HumaLOG 300 UNITS/3 ML VIAL SC PRN ×2 (11:59→17:47)
[2017-07-26] MEDS: guaiFENesin 200 MG TAB PO SCH ×2 (15:19→21:14)
--- NOTE | 2017-07-26 16:49 | PRG ---
DATE OF SERVICE: 07/26/2017 SUBJECTIVE: The patient appears to be doing well. She is slightly hoarse with her voice. PHYSICAL EXAMINATION: VITAL SIGNS: Temperature 99.8, pulse 90, respirations 14, O2 sat 94% on 4 liters, blood pressure 157 /80. HEENT: Unremarkable. NECK: No adenopathy or JVD. LUNGS: Clear. CARDIAC: S1 and S2 regular. ABDOMEN: Soft. EXTREMITIES: No edema. ASSESSMENT: 1. Respiratory failure related acute respiratory distress syndrome. 2. Aspiration pneumonia. PLAN: Increase activity as tolerated. Continue oral antibiotics which will be stopped on the .
[2017-07-26] MEDS: Enoxaparin Sodium 40 MG/0.4 ML SYRINGE SC SCH (21:13)
[2017-07-26] MEDS: OXcarbazepine 300 MG TAB PO SCH (21:17)
[2017-07-27] MEDS: Levothyroxine Sodium 100 MCG TAB PO SCH (06:04)
[2017-07-27] MEDS: Gabapentin 400 MG CAP PO SCH ×3 (10:12→20:53)
[2017-07-27] MEDS: busPIRone HCl 10 MG TAB PO SCH ×2 (10:12→20:51)
[2017-07-27] MEDS: guaiFENesin 200 MG TAB PO SCH ×3 (10:12→20:54)
[2017-07-27] MEDS: Cefdinir 300 MG CAP PO SCH ×2 (10:13→20:52)
[2017-07-27] MEDS: Fluconazole 100 MG TAB PO SCH (10:13)
[2017-07-27] MEDS: predniSONE 5 MG TAB PO SCH (10:13)
[2017-07-27] MEDS: Pantoprazole 40 MG VIAL IVP SCH (10:13)
[2017-07-27 10:56] LABS: #Basophils 0.1 thou/uL (0.0-0.2); #Eosinphils 0.4 thou/uL (0.0-0.7); #Lymphocytes 2.9 thou/uL (1.20-3.40); #Monocytes 0.5 thou/uL (0.11-0.59); #Neutrophils 10.3 thou/uL (1.40-6.50); %Basophils 0.6 % (0.0-1.0); %Lymphocytes 20.6 % (21.0-51.0); %Monocytes 3.8 % (0.0-10.0); Hemoglobin 12.4 g/dL (12.0-16.0); Mean Corpuscular HGB CONC 33.9 g/dL (32.0-36.0); Mean Corpuscular Hemoglobin 31.8 pg (27.0-31.0); Mean Corpuscular Volume 93.9 fl (81.0-99.0); Mean Platelet Volume 7.8 fL (7.4-10.4); Platelet Count 301 thou/uL (130-400); RBC Distribution Width 13.4 % (11.5-14.5); Red Blood Cell (RBC) Count 3.91 mill/uL (4.20-5.40); White Blood Cell (WBC) Count 14.2 thou/uL (4.8-10.8)
[2017-07-27] MEDS: INSULIN GLARGINE SC SCH ×2 (11:19→20:54)
[2017-07-27 11:21] LABS: Anion Gap 12 mmol/L (10-20); BUN (Urea Nitrogen) 14 mg/dL (7.0-18.7); Calc. Creatinine Clearance 200 mL/min (70-130); Calcium 8.9 mg/dL (7.8-10.44); Carbon Dioxide 30 mmol/L (22-29); Chloride 89 mmol/L (98-107); Estimated GFR-MDRD Greater than 90; Glucose 253 mg/dL (70-105); Potassium 3.7 mmol/L (3.5-5.1); Sodium 127 mmol/L (136-145)
[2017-07-27] MEDS: HumaLOG 300 UNITS/3 ML VIAL SC PRN ×3 (12:40→20:56)
--- NOTE | 2017-07-27 13:43 | PRG ---
DATE OF SERVICE: 07/27/2017 SUBJECTIVE: The patient is doing somewhat better. OBJECTIVE: VITAL SIGNS: Temperature is 98.8, pulse 77, respiration 16, O2 saturation 94% on 4 liters, blood pre ssure 164/92. HEENT: Unremarkable. NECK: No JVD. LUNGS: A few crackles in the bases bilaterally. CARDIAC: S1 and S2 regular. ABDOMEN: Soft. EXTREMITIES: No edema. LABORATORY DATA: White blood cell count 14.2, hematocrit 36.7, platelet count 301. Sodium 127, pota ssium 3.7, BUN 14, creatinine 0.6, glucose 253. ASSESSMENT: 1. Status post adult respiratory distress syndrome. 2. Aspiration pneumonia. PLAN: The patient grew out yeast from a bronch, which is probably a contaminant. She is continuing fluconazole and Ceftin. The main issue now is weaning her oxygen. She may end up needing to be on o xygen at home for several weeks at the time of discharge.
--- NOTE | 2017-07-27 15:10 | PDOC.PN ---
- Subjective Encounter Start Date: 07/27/17 Encounter Start Time: 13:15 PAtient is seen today, alert and oriented. No other Concerns noted. She Remains on nC , persistently congested. - Objective Resuscitation Status: Resuscitation Status FULL:Full Resuscitation MAR Reviewed: Yes Vital Signs & Weight: Vital Signs (12 hours) Temp Pulse Resp BP BP Pulse Ox 07/27/17 14:18 80 14 07/27/17 12:00 98.8 F 77 16 164/92 H 91 L 07/27/17 10:27 78 14 07/27/17 07:53 98.9 F 81 16 07/27/17 07:42 98.9 F 81 16 157/93 H 90 L 07/27/17 06:47 80 14 07/27/17 04:00 98.8 F 78 20 108/63 92 L Weight Admit Weight 235 lb Weight 237 lb 1.6 oz Most Recent Monitor Data Heart Rate from ECG 70 NIBP 137/78 NIBP BP-Mean 96 Respiration from ECG 23 SpO2 91 I&O: 07/26/17 07/27/17 07/28/17 06:59 06:59 06:59 Intake Total 960 1200 Output Total 2270 2900 Balance -1310 -1700 Result Diagrams: 07/27/17 10:43 07/27/17 10:43 Additional Labs: Accuchecks 07/27/17 07/27/17 07/26/17 11:10 05:45 20:47 POC Glucose 241 H 222 H 214 H 07/26/17 16:50 POC Glucose 241 H Radiology Reviewed by me: Yes Phys Exam - Physical Examination HEENT: PERRLA, moist MMs Neck: no nodes, no JVD Respiratory: no rales, wheezing present Cardiovascular: RRR, no significant murmur Gastrointestinal: soft, non-tender Musculoskeletal: no edema, pulses present Lymphatic: no nodes Dx/Plan (1) ARDS (adult respiratory distress syndrome) Code(s): J80 - ACUTE RESPIRATORY DISTRESS SYNDROME Status: Resolved Comment : Improved, Resolving. Remains on Oxygen Will wean it off. (2) DM type 2 (diabetes mellitus, type 2) Status: Acute Qualifiers: Diabetes mellitus penitentiary insulin use: with filler leaf cutter long use Diabetes mellitus complication status: with kidney complications Chronic kidney disease stage: unspecified stage Comment: Continue SSI. [place]bale well controlled. (3) PNA (pneumonia) Code(s): J18.9 - PNEUMONIA, UNSPECIFIED ORGANISM Status: Acute Qualifiers: Pneumonia type: due to unspecified organism Laterality: bilateral Lung location: unspecified part of lung Qualified Code(s): J18.9 - Pneumonia, unspecified organism Comment: Continue on PO Abx and Po Antifungal. Continue Till 07/30. (4) Bipolar disorder Code(s): F31.9 - BIPOLAR DISORDER, UNSPECIFIED Status: Chronic Qualifiers: Active/Remission status: remission status unspecified Qualified Code(s): F31.9 - Bipolar disorder, unspecified Comment: Stbale, no Mnaia/ Depression noted. (5) Hypothyroid Code(s): E03.9 - HYPOTHYROIDISM, UNSPECIFIED Status: Chronic Qualifiers: Hypothyroidism type: acquired Qualified Code(s): E03.9 - Hypothyroidism, unspecified Comment: s/p iodine ablation, HOME SYNTHROID CONTINUED. (6) Acute renal failure Status: Resolved Qualifiers: Acute renal failure type: unspecified Qualified Code(s): N17.9 - Acute kidney failure, unspecified Comment: Improving with IV fluids. Continue To Monitor. - Plan cont current plan of care, plan discussed w/ family, continue antibiotics, PT/OT , social worker aide, respiratory therapy, incentive spirometry, out of bed/ ambulate, DVT proph w/lovenox * . Review of Systems - Review of Systems Eyes: negative: Pain, Vision Change, Conjunctivae Inflammation, Eyelid Inflammation, Redness, Other ENT: negative: Ear Pain, Ear Discharge, Nose Pain, Nose Discharge, Nose Congestion, Mouth Pain, Mouth Swelling, Throat Pain, Throat Swelling, Other Respiratory: Cough, Shortness of Breath, SOB with Excertion, Sputum, Wheezing Cardiovascular: negative: chest pain, palpitations, orthopnea, paroxysmal nocturnal dyspnea, edema, light headedness, other Gastrointestinal: negative: Nausea, Vomiting, Abdominal Pain, Diarrhea, Constipation, Melena, Hematochezia, Other Genitourinary: negative: Dysuria, Frequency, Incontinence, Hematuria, Retention , Other Musculoskeletal: negative: Neck Pain, Shoulder Pain, Arm Pain, Back Pain, Hand Pain, Leg Pain, Foot Pain, Other Skin: negative: Rash, Lesions, Fredy, Bruising, Other - Medications/Allergies Allergies/Adverse Reactions: Allergies Allergy/AdvReac Type Severity Reaction Status Date / Time No Known Allergies Allergy Verified 07/16/17 19:12 Medications: Current Medications Acetaminophen (Tylenol) 650 mg ID Q4H PRN PRN Reason: Headache/Fever or Pain Last Admin: 07/17/17 14:40 Dose: 650 mg Albuterol/Ipratropium (Duoneb) 3 ml NEB [id number] [facility] Last Admin: 07/27/17 14:18 Dose: 3 ml Buspirone HCl (Buspar) 30 mg PO BID [facility] Last Admin: 07/27/17 10:12 Dose: 30 mg Cefdinir (Omnicef) 300 mg PO BID [facility] Stop: 07/30/17 09:01 Last Admin: 07/27/17 10:13 Dose: 300 mg Dextrose/Water (Dextrose 50%) 25 gm SLOW IVP PRN PRN PRN Reason: Hypoglycemia Enoxaparin Sodium (Lovenox) 40 mg SC 2100 [facility] Last Admin: 07/26/17 21:13 Dose: 40 mg Fluconazole (Diflucan) 200 mg PO DAILY [facility] Stop: 07/30/17 09:01 Last Admin: 07/27/17 10:13 Dose: 200 mg Gabapentin (Neurontin) 800 mg PO TID [facility] Last Admin: 07/27/17 10:12 Dose: 800 mg Glucagon (Glucagon) 1 mg IM PRN PRN PRN Reason: Hypoglycemia Guaifenesin (Organ-I Nr) 400 mg PO TID [facility] Last Admin: 07/27/17 10:12 Dose: 400 mg Norepinephrine Bitartrate (Levophed) 250 mls @ 0 mls/hr IVPB INF MARGARETH; Titrate PRN Reason: Protocol Dextrose/Water (D5w) 1,000 mls @ 0 mls/hr IV .Q0M PRN; As Directed PRN Reason: Hypoglycemia Insulin Glargine 20 units/ (Device) 0.2 mls @ 0 mls/hr SC BID [facility] PRN Reason: As Directed Last Admin: 07/27/17 11:19 Dose: 0.2 mls Ibuprofen (Motrin) 400 mg PO Q8H PRN PRN Reason: Fever > 101 Last Admin: 07/17/17 11:56 Dose: 400 mg Insulin Human Lispro (Humalog) 0 units SC .MODERATE SLIDING SC PRN PRN Reason: Moderate Correctional Scale Last Admin: 07/27/17 12:40 Dose: 4 units Levothyroxine Sodium (Synthroid) 200 mcg PO 0600 [facility] Last Admin: 07/27/17 06:04 Dose: 200 mcg Ccu Electrolyte (Replacement Protocol) 0 each FS PRN PRN PRN Reason: FOR ELECTROLYTE REPLACEMENT Ondansetron HCl (Zofran) 4 mg IVP Q6H PRN PRN Reason: Nausea/Vomiting Oxcarbazepine (Trileptal) 2,400 mg PO HS [facility] Last Admin: 07/26/17 21:17 Dose: 2,400 mg Pantoprazole Sodium (Protonix) 40 mg IVP DAILY [facility] Last Admin: 07/27/17 10:13 Dose: 40 mg Phenol (Chloraseptic [place] 180 Ml Bot) 2 ml PO BIDPRN PRN PRN Reason: Sore Throat Last Admin: 07/26/17 15:18 Dose: 2 ml Prednisone (Prednisone) 10 mg PO QAM-[facility] Last Admin: 07/27/17 10:13 Dose: 10 mg Sertraline HCl (Zoloft) 50 mg PO DAILY [facility] Last Admin: 07/27/17 10:13 Dose: 50 mg Sodium Chloride (Flush - Normal Saline) 10 ml IVF Q12HR [facility] Last Admin: 07/27/17 10:14 Dose: 10 ml Sodium Chloride (Flush - Normal Saline) 10 ml IVF PRN PRN PRN Reason: Saline Flush Last Admin: 07/27/17 10:17 Dose: 10 ml
[2017-07-27] MEDS ORDERED: hydrALAZINE 10 MG TAB PO PRN (16:42)
[2017-07-27] MEDS ORDERED: hydrALAZINE 20 MG/ML VIAL SLOW IVP PRN (16:49)
[2017-07-27] MEDS: Enoxaparin Sodium 40 MG/0.4 ML SYRINGE SC SCH (20:52)
[2017-07-27] MEDS: OXcarbazepine 300 MG TAB PO SCH (20:55)
[2017-07-28] MEDS: Levothyroxine Sodium 100 MCG TAB PO SCH (04:58)
[2017-07-28] MEDS ORDERED: Acetaminophen 325 MG TAB PO PRN (05:26)
[2017-07-28] MEDS ORDERED: predniSONE 5 MG TAB PO SCH ×2 (08:33→08:45)
[2017-07-28] MEDS: guaiFENesin 200 MG TAB PO SCH ×3 (08:38→22:12)
[2017-07-28] MEDS: Gabapentin 400 MG CAP PO SCH ×3 (08:38→22:12)
[2017-07-28] MEDS: Cefdinir 300 MG CAP PO SCH ×2 (08:39→22:13)
[2017-07-28] MEDS: Fluconazole 100 MG TAB PO SCH (08:39)
[2017-07-28] MEDS: busPIRone HCl 10 MG TAB PO SCH ×2 (08:43→22:12)
[2017-07-28] MEDS: INSULIN GLARGINE SC SCH ×2 (08:44→22:13)
[2017-07-28] MEDS: HumaLOG 300 UNITS/3 ML VIAL SC PRN ×3 (08:44→17:19)
--- NOTE | 2017-07-28 08:50 | PRG ---
DATE OF SERVICE: 07/28/2017 This morning she is awake, alert, responsive. She is apparently still hypoxic. PHYSICAL EXAMINATION: VITAL SIGNS: Sats are 94% on 4 liters, temperature is 98, pulse 80, respiration rate 18, blood pressure was 135/65. I's & O's have been 1200 in, 2900 out. CHEST: Chest reveals decreased breath sounds, no wheezing. CARDIAC: Normal S1, S2. ABDOMEN: Soft, no masses. LABORATORY: Sodium is 127. White count 14,000, bun to 35. IMPRESSION: 1. Respiratory failure. 2. Probably some diastolic dysfunction. 3. Electrolyte imbalance. PLAN: Discontinue prednisone over 3 days. Continue PT and supportive care. assisted placement versus home in the next several days. She will need home health. She will need aggressive PT. We will follow. CARLOS
[2017-07-28 09:02] VITALS: BMI 34.5
[2017-07-28] MEDS: predniSONE 5 MG TAB PO SCH (09:03)
--- NOTE | 2017-07-28 10:58 | RAD ---
PA AND LATERAL CHEST: History: CHF FINDINGS/IMPRESSION: Comparison made with exam of 07-21-17. The heart size is normal. There is pulmonary vascular congestion and bibasilar infiltrates, right gre ater than left. Small effusions are present. POS: [facility]
--- NOTE | 2017-07-28 11:33 | PDOC.PN ---
- Subjective Encounter Start Date: 07/28/17 Encounter Start Time: 07:40 -: old records requested/rev Patient seen and examined for pneumonia. Still hypoxic. No new complaints. No overnight events - Objective Resuscitation Status: Resuscitation Status FULL:Full Resuscitation MAR Reviewed: Yes Vital Signs & Weight: Vital Signs (12 hours) Temp Pulse Pulse Pulse Resp BP BP 07/28/17 10:35 73 18 07/28/17 08:42 76 79 133/88 139/79 07/28/17 08:30 98.0 F 79 18 07/28/17 07:26 07/28/17 07:24 81 18 07/28/17 04:00 98.8 F 79 20 07/28/17 02:28 07/28/17 01:03 89 18 BP BP Pulse Ox Pulse Ox Pulse Ox 07/28/17 10:35 95 07/28/17 08:42 94 L 95 07/28/17 08:30 132/92 H 93 L 07/28/17 07:26 94 L 07/28/17 07:24 94 L 07/28/17 04:00 135/65 93 L 07/28/17 02:28 92 L 07/28/17 01:03 92 L Weight Admit Weight 247 lb 9.266 oz Weight 233 lb 14.4 oz Most Recent Monitor Data Heart Rate from ECG 70 NIBP 137/78 NIBP BP-Mean 96 Respiration from ECG 23 SpO2 91 I&O: 07/27/17 07/28/17 07/29/17 06:59 06:59 06:59 Intake Total 1200 200 Output Total 2900 Balance -1700 200 Result Diagrams: 07/27/17 10:43 07/27/17 10:43 Additional Labs: Accuchecks 07/28/17 07/28/17 07/27/17 11:05 05:55 20:51 POC Glucose 237 H 237 H 244 H 07/27/17 17:13 POC Glucose 275 H Radiology Reviewed by me: Yes (chest xray) EKG Reviewed by me: Yes (nsr) Phys Exam - Physical Examination Constitutional: NAD HEENT: PERRLA, moist MMs, sclera anicteric Neck: no JVD, supple Respiratory: no wheezing, no rhonchi bibasilar rales, right more than on left Cardiovascular: RRR, no significant murmur, no rub Gastrointestinal: soft, non-tender, no distention, positive bowel sounds Musculoskeletal: no edema, pulses present Neurological: non-focal, normal sensation, moves all 4 limbs Psychiatric: normal affect, A&O x 3 Skin: no rash, normal turgor Dx/Plan (1) Acute respiratory failure with hypoxia and hypercapnia Code(s): J96.01 - ACUTE RESPIRATORY FAILURE WITH HYPOXIA; J96.02 - ACUTE RESPIRATORY FAILURE WITH HYPERCAPNIA Status: Acute (2) Aspiration pneumonia Code(s): J69.0 - PNEUMONITIS DUE TO INHALATION OF FOOD AND VOMIT Status: Acute (3) Sepsis with acute organ dysfunction Code(s): A41.9 - SEPSIS, UNSPECIFIED ORGANISM; R65.20 - SEVERE SEPSIS WITHOUT SEPTIC SHOCK Status: Acute (4) Bipolar disorder Code(s): F31.9 - BIPOLAR DISORDER, UNSPECIFIED Status: Chronic Qualifiers: Active/Remission status: remission status unspecified Qualified Code(s): F31.9 - Bipolar disorder, unspecified Comment: Stbale, no Mnaia/ Depression noted. (5) DM type 2 (diabetes mellitus, type 2) Status: Chronic Qualifiers: Diabetes mellitus shelter insulin use: with shelter use Diabetes mellitus complication status: with kidney complications Chronic kidney disease stage: unspecified stage Comment: Continue SSI. Stbale well controlled. (6) Hypothyroidism Code(s): E03.9 - HYPOTHYROIDISM, UNSPECIFIED Status: Chronic (7) Obesity (BMI 30.0-34.9) Code(s): E66.9 - OBESITY, UNSPECIFIED Status: Chronic (8) ARDS (adult respiratory distress syndrome) Code(s): J80 - ACUTE RESPIRATORY DISTRESS SYNDROME Status: Resolved Comment : (9) Acute encephalopathy Code(s): G93.40 - ENCEPHALOPATHY, UNSPECIFIED Status: Resolved (10) Acute renal failure Status: Resolved Qualifiers: Acute renal failure type: unspecified Qualified Code(s): N17.9 - Acute kidney failure, unspecified Comment: (11) Hyperglycemia without ketosis Code(s): R73.9 - HYPERGLYCEMIA, UNSPECIFIED Status: Resolved - Plan cont current plan of care, continue antibiotics, social research assistant, respiratory therapy, incentive spirometry * continue current oral antibiotics, omnicef and diflucan * she will likely need temporary home oxygen * medication reviewed as below * symptomatic treatment. Review of Systems - Review of Systems Constitutional: negative: fever, chills, sweats, weakness, malaise, other Eyes: negative: Pain, Vision Change, Conjunctivae Inflammation, Eyelid Inflammation, Redness, Other ENT: negative: Ear Pain, Ear Discharge, Nose Pain, Nose Discharge, Nose Congestion, Mouth Pain, Mouth Swelling, Throat Pain, Throat Swelling, Other Respiratory: Cough, SOB with Excertion. negative: Dry, Shortness of Breath, Hemoptysis, Pleuritic Pain, Sputum, Wheezing Cardiovascular: negative: chest pain, palpitations, orthopnea, paroxysmal nocturnal dyspnea, edema, light headedness, other Gastrointestinal: negative: Nausea, Vomiting, Abdominal Pain, Diarrhea, Constipation, Melena, Hematochezia, Other Genitourinary: negative: Dysuria, Frequency, Incontinence, Hematuria, Retention , Other Musculoskeletal: negative: Neck Pain, Shoulder Pain, Arm Pain, Back Pain, Hand Pain, Leg Pain, Foot Pain, Other Skin: negative: Rash, Lesions, Fredy, Bruising, Other - Medications/Allergies Allergies/Adverse Reactions: Allergies Allergy/AdvReac Type Severity Reaction Status Date / Time No Known Allergies Allergy Verified 07/16/17 19:12 Medications: Current Medications Acetaminophen (Tylenol) 650 mg PO Q6H PRN PRN Reason: Headache/Fever or Pain Last Admin: 07/28/17 05:43 Dose: 650 mg Albuterol/Ipratropium (Duoneb) 3 ml NEB Q6HR [facility] Buspirone HCl (Buspar) 30 mg PO BID [facility] Last Admin: 07/28/17 08:43 Dose: 30 mg Cefdinir (Omnicef) 300 mg PO BID [facility] Stop: 07/30/17 09:01 Last Admin: 07/28/17 08:39 Dose: 300 mg Dextrose/Water (Dextrose 50%) 25 gm SLOW IVP PRN PRN PRN Reason: Hypoglycemia Enoxaparin Sodium (Lovenox) 40 mg SC 2100 [facility] Last Admin: 07/27/17 20:52 Dose: 40 mg Fluconazole (Diflucan) 200 mg PO DAILY [facility] Stop: 07/30/17 09:01 Last Admin: 07/28/17 08:39 Dose: 200 mg Gabapentin (Neurontin) 800 mg PO TID [facility] Last Admin: 07/28/17 08:38 Dose: 800 mg Glucagon (Glucagon) 1 mg IM PRN PRN PRN Reason: Hypoglycemia Guaifenesin (Organ-I Nr) 400 mg PO TID [facility] Last Admin: 07/28/17 08:38 Dose: 400 mg Hydralazine HCl (Apresoline) 10 mg SLOW IVP Q6H PRN PRN Reason: SBP > 150 Last Admin: 07/27/17 17:03 Dose: 10 mg Dextrose/Water (D5w) 1,000 mls @ 0 mls/hr IV .Q0M PRN; As Directed PRN Reason: Hypoglycemia Insulin Glargine 20 units/ (Device) 0.2 mls @ 0 mls/hr SC BID [facility] PRN Reason: As Directed Last Admin: 07/28/17 08:44 Dose: 0.2 mls Ibuprofen (Motrin) 400 mg PO Q8H PRN PRN Reason: Fever > 101 Last Admin: 07/17/17 11:56 Dose: 400 mg Insulin Human Lispro (Humalog) 0 units SC .MODERATE SLIDING SC PRN PRN Reason: Moderate Correctional Scale Last Admin: 07/28/17 08:44 Dose: 4 units Levothyroxine Sodium (Synthroid) 200 mcg PO 0600 [facility] Last Admin: 07/28/17 04:58 Dose: 200 mcg Ccu Electrolyte (Replacement Protocol) 0 each FS PRN PRN PRN Reason: FOR ELECTROLYTE REPLACEMENT Ondansetron HCl (Zofran) 4 mg IVP Q6H PRN PRN Reason: Nausea/Vomiting Oxcarbazepine (Trileptal) 2,400 mg PO HS [facility] Last Admin: 07/27/17 20:55 Dose: 2,400 mg Phenol (Chloraseptic [place] 180 Ml Bot) 2 ml PO BIDPRN PRN PRN Reason: Sore Throat Last Admin: 07/26/17 15:18 Dose: 2 ml Prednisone (Prednisone) 5 mg PO QAM-[facility] Stop: 07/29/17 08:01 Sertraline HCl (Zoloft) 50 mg PO DAILY [facility] Last Admin: 07/28/17 08:39 Dose: 50 mg Sodium Chloride (Flush - Normal Saline) 10 ml IVF Q12HR [facility] Last Admin: 07/28/17 09:02 Dose: Not Given Sodium Chloride (Flush - Normal Saline) 10 ml IVF PRN PRN PRN Reason: Saline Flush Last Admin: 07/27/17 17:04 Dose: 10 ml
[2017-07-28] MEDS: Enoxaparin Sodium 40 MG/0.4 ML SYRINGE SC SCH (22:12)
[2017-07-28] MEDS: OXcarbazepine 300 MG TAB PO SCH (22:14)
[2017-07-29] MEDS: Levothyroxine Sodium 100 MCG TAB PO SCH (06:26)
[2017-07-29 07:13] LABS: #Basophils 0.1 thou/uL (0.0-0.2); #Eosinphils 0.5 thou/uL (0.0-0.7); #Lymphocytes 3.2 thou/uL (1.20-3.40); #Monocytes 0.5 thou/uL (0.11-0.59); #Neutrophils 8.5 thou/uL (1.40-6.50); %Eosinophils 4.1 % (0.0-10.0); %Lymphocytes 25.2 % (21.0-51.0); %Monocytes 3.6 % (0.0-10.0); %Neutrophils 66.2 % (42.0-75.0); Hemoglobin 12.3 g/dL (12.0-16.0); Mean Corpuscular HGB CONC 33.1 g/dL (32.0-36.0); Mean Corpuscular Hemoglobin 31.6 pg (27.0-31.0); Mean Corpuscular Volume 95.6 fl (81.0-99.0); Mean Platelet Volume 7.8 fL (7.4-10.4); Platelet Count 324 thou/uL (130-400); RBC Distribution Width 13.4 % (11.5-14.5); Red Blood Cell (RBC) Count 3.88 mill/uL (4.20-5.40); White Blood Cell (WBC) Count 12.8 thou/uL (4.8-10.8)
[2017-07-29 07:32] LABS: Anion Gap 13 mmol/L (10-20); BUN (Urea Nitrogen) 18 mg/dL (7.0-18.7); Calc. Creatinine Clearance 173 mL/min (70-130); Calcium 8.9 mg/dL (7.8-10.44); Carbon Dioxide 30 mmol/L (22-29); Chloride 96 mmol/L (98-107); Estimated GFR-MDRD 89; Glucose 235 mg/dL (70-105); Potassium 4.1 mmol/L (3.5-5.1); Sodium 135 mmol/L (136-145)
[2017-07-29] MEDS ORDERED: predniSONE 5 MG TAB PO SCH (08:00)
[2017-07-29] MEDS: Cefdinir 300 MG CAP PO SCH (08:56)
[2017-07-29] MEDS: Fluconazole 100 MG TAB PO SCH (08:56)
[2017-07-29] MEDS: busPIRone HCl 10 MG TAB PO SCH (08:56)
[2017-07-29] MEDS: Gabapentin 400 MG CAP PO SCH ×2 (08:56→15:16)
[2017-07-29] MEDS: HumaLOG 300 UNITS/3 ML VIAL SC PRN ×2 (08:57→12:28)
[2017-07-29] MEDS: guaiFENesin 200 MG TAB PO SCH ×2 (08:57→15:16)
[2017-07-29] MEDS ORDERED: Insulin Glargine 25 UNITS in Pre-Filled Syringe 1 EACH SC SCH ×2 (09:00→21:00)
--- NOTE | 2017-07-29 09:53 | PDOC.PN ---
- Subjective Encounter Start Date: 07/29/17 Encounter Start Time: 07:50 Patient seen and examined for pneumonia. No new complaints. No overnight events - Objective Resuscitation Status: Resuscitation Status FULL:Full Resuscitation MAR Reviewed: Yes Vital Signs & Weight: Vital Signs (12 hours) Temp Pulse Resp BP Pulse Ox 07/29/17 06:50 80 16 07/29/17 04:00 99.3 F 78 17 114/66 93 L 07/29/17 02:45 93 L 07/28/17 23:08 86 18 Weight Admit Weight 247 lb 9.266 oz Weight 230 lb 8 oz Most Recent Monitor Data Heart Rate from ECG 70 NIBP 137/78 NIBP BP-Mean 96 Respiration from ECG 23 SpO2 91 I&O: 07/28/17 07/29/17 07/30/17 06:59 06:59 06:59 Intake Total 200 Balance 200 Result Diagrams: 07/29/17 06:56 07/29/17 06:56 Additional Labs: Accuchecks 07/29/17 07/28/17 07/28/17 06:27 20:41 16:37 POC Glucose 255 H 236 H 247 H 07/28/17 11:05 POC Glucose 237 H EKG Reviewed by me: Yes (nsr) Phys Exam - Physical Examination Constitutional: NAD HEENT: PERRLA, moist MMs, sclera anicteric Neck: no JVD, supple Respiratory: no wheezing, no rhonchi few basal rales Cardiovascular: RRR, no significant murmur, no rub Gastrointestinal: soft, non-tender, no distention, positive bowel sounds Musculoskeletal: no edema, pulses present Neurological: non-focal, normal sensation, moves all 4 limbs Lymphatic: no nodes Psychiatric: normal affect, A&O x 3 Skin: no rash, normal turgor Dx/Plan (1) Acute respiratory failure with hypoxia and hypercapnia Code(s): J96.01 - ACUTE RESPIRATORY FAILURE WITH HYPOXIA; J96.02 - ACUTE RESPIRATORY FAILURE WITH HYPERCAPNIA Status: Acute (2) Aspiration pneumonia Code(s): J69.0 - PNEUMONITIS DUE TO INHALATION OF FOOD AND VOMIT Status: Acute (3) Sepsis with acute organ dysfunction Code(s): A41.9 - SEPSIS, UNSPECIFIED ORGANISM; R65.20 - SEVERE SEPSIS WITHOUT SEPTIC SHOCK Status: Acute (4) Bipolar disorder Code(s): F31.9 - BIPOLAR DISORDER, UNSPECIFIED Status: Chronic Qualifiers: Active/Remission status: remission status unspecified Qualified Code(s): F31.9 - Bipolar disorder, unspecified Comment: [place]bale, no Mnaia/ Depression noted. (5) DM type 2 (diabetes mellitus, type 2) Status: Chronic Qualifiers: Diabetes mellitus skilled nursing insulin use: with speech language pathology assistant use Diabetes mellitus complication status: with kidney complications Chronic kidney disease stage: unspecified stage Comment: Continue SSI. Stbale well controlled. (6) Hypothyroidism Code(s): E03.9 - HYPOTHYROIDISM, UNSPECIFIED Status: Chronic (7) Obesity (BMI 30.0-34.9) Code(s): E66.9 - OBESITY, UNSPECIFIED Status: Chronic (8) ARDS (adult respiratory distress syndrome) Code(s): J80 - ACUTE RESPIRATORY DISTRESS SYNDROME Status: Resolved Comment : (9) Acute encephalopathy Code(s): G93.40 - ENCEPHALOPATHY, UNSPECIFIED Status: Resolved (10) Acute renal failure Status: Resolved Qualifiers: Acute renal failure type: unspecified Qualified Code(s): N17.9 - Acute kidney failure, unspecified Comment: (11) Hyperglycemia without ketosis Code(s): R73.9 - HYPERGLYCEMIA, UNSPECIFIED Status: Resolved (12) Diabetic toe ulcer Code(s): E11.621 - TYPE 2 DIABETES MELLITUS WITH FOOT ULCER; L97.509 - NON- PRESSURE CHRONIC ULCER OTH PRT UNSP FOOT W UNSP SEVERITY Status: Chronic (13) Hyponatremia Code(s): E87.1 - HYPO-OSMOLALITY AND HYPONATREMIA Status: Acute - Plan cont current plan of care, continue antibiotics, social services director * outpt podiatry appointment for diabetic toe * continue omnicef and diflucan for CAP * will need arrangement for home oxygen for short term for may be less than month for her hypoxia due to pneumonia and ards * medication reviewed as below * symptomatic treatment * increase lantus 25 unit sc bid, on discharge she will resume her home medication. Review of Systems - Review of Systems Eyes: negative: Pain, Vision Change, Conjunctivae Inflammation, Eyelid Inflammation, Redness, Other ENT: negative: Ear Pain, Ear Discharge, Nose Pain, Nose Discharge, Nose Congestion, Mouth Pain, Mouth Swelling, Throat Pain, Throat Swelling, Other Respiratory: negative: Cough, Dry, Shortness of Breath, Hemoptysis, SOB with Excertion, Pleuritic Pain, Sputum, Wheezing Cardiovascular: negative: chest pain, palpitations, orthopnea, paroxysmal nocturnal dyspnea, edema, light headedness, other Gastrointestinal: negative: Nausea, Vomiting, Abdominal Pain, Diarrhea, Constipation, Melena, Hematochezia, Other Genitourinary: negative: Dysuria, Frequency, Incontinence, Hematuria, Retention , Other Musculoskeletal: negative: Neck Pain, Shoulder Pain, Arm Pain, Back Pain, Hand Pain, Leg Pain, Foot Pain, Other Skin: negative: Rash, Lesions, Fredy, Bruising, Other - Medications/Allergies Allergies/Adverse Reactions: Allergies Allergy/AdvReac Type Severity Reaction Status Date / Time No Known Allergies Allergy Verified 07/16/17 19:12 Medications: Current Medications Acetaminophen (Tylenol) 650 mg PO Q6H PRN PRN Reason: Headache/Fever or Pain Last Admin: 07/28/17 05:43 Dose: 650 mg Albuterol/Ipratropium (Duoneb) 3 ml NEB [id number] [facility] Last Admin: 07/29/17 06:50 Dose: 3 ml Buspirone HCl (Buspar) 30 mg PO BID [facility] Last Admin: 07/29/17 08:56 Dose: 30 mg Cefdinir (Omnicef) 300 mg PO BID [facility] Stop: 07/30/17 09:01 Last Admin: 07/29/17 08:56 Dose: 300 mg Dextrose/Water (Dextrose 50%) 25 gm SLOW IVP PRN PRN PRN Reason: Hypoglycemia Enoxaparin Sodium (Lovenox) 40 mg SC 2100 [facility] Last Admin: 07/28/17 22:12 Dose: 40 mg Fluconazole (Diflucan) 200 mg PO DAILY [facility] Stop: 07/30/17 09:01 Last Admin: 07/29/17 08:56 Dose: 200 mg Gabapentin (Neurontin) 800 mg PO TID [facility] Last Admin: 07/29/17 08:56 Dose: 800 mg Glucagon (Glucagon) 1 mg IM PRN PRN PRN Reason: Hypoglycemia Guaifenesin (Organ-I Nr) 400 mg PO TID [facility] Last Admin: 07/29/17 08:57 Dose: 400 mg Hydralazine HCl (Apresoline) 10 mg SLOW IVP Q6H PRN PRN Reason: SBP > 150 Last Admin: 07/27/17 17:03 Dose: 10 mg Dextrose/Water (D5w) 1,000 mls @ 0 mls/hr IV .Q0M PRN; As Directed PRN Reason: Hypoglycemia Insulin Glargine 25 units/ (Miscellaneous Medication) 0.25 mls @ 0 mls/hr SC HS [facility] Insulin Glargine 25 units/ (Miscellaneous Medication) 0.25 mls @ 0 mls/hr SC QAM [facility] Last Admin: 07/29/17 08:57 Dose: 0.25 mls Ibuprofen (Motrin) 400 mg PO Q8H PRN PRN Reason: Fever > 101 Last Admin: 07/17/17 11:56 Dose: 400 mg Insulin Human Lispro (Humalog) 0 units SC .MODERATE SLIDING SC PRN PRN Reason: Moderate Correctional Scale Last Admin: 07/29/17 08:57 Dose: 6 units Levothyroxine Sodium (Synthroid) 200 mcg PO 0600 [facility] Last Admin: 07/29/17 06:26 Dose: 200 mcg Ccu Electrolyte (Replacement Protocol) 0 each FS PRN PRN PRN Reason: FOR ELECTROLYTE REPLACEMENT Ondansetron HCl (Zofran) 4 mg IVP Q6H PRN PRN Reason: Nausea/Vomiting Oxcarbazepine (Trileptal) 2,400 mg PO [facility] Last Admin: 07/28/17 22:14 Dose: 2,400 mg Phenol (Chloraseptic [place] 180 Ml Bot) 2 ml PO BIDPRN PRN PRN Reason: Sore Throat Last Admin: 07/26/17 15:18 Dose: 2 ml Sertraline HCl (Zoloft) 50 mg PO DAILY [facility] Last Admin: 07/29/17 08:57 Dose: 50 mg Sodium Chloride (Flush - Normal Saline) 10 ml IVF Q12HR [facility] Last Admin: 07/29/17 08:57 Dose: 10 ml Sodium Chloride (Flush - Normal Saline) 10 ml IVF PRN PRN PRN Reason: Saline Flush Last Admin: 07/27/17 17:04 Dose: 10 ml
--- NOTE | 2017-07-29 10:32 | PRG ---
DATE OF SERVICE: 07/29/2017 This morning she is awake, alert, responsive. PHYSICAL EXAMINATION: VITAL SIGNS: Her sats are 80% on room air, on 2 liters they were 92-93%, respirations 16, temperatur e 99, blood pressure 140/66. CHEST: Chest still shows bilateral pulmonary infiltrates from yesterday. Chest reveals decreased br eath sounds, no wheezing. CARDIAC: Normal S1, S2. ABDOMEN: Soft, no masses. LABORATORY DATA: White count 10,000, H&H 12 and 37, platelet count is normal. Electrolytes are norm al. All cultures except for yeast have been negative. IMPRESSION: 1. Respiratory failure. 2. Acute respiratory distress syndrome. 3. Pneumonia, aspiration. 4. Bipolar disorder, schizophrenic. PLAN: Pulmonary soto, low flow O2 2 liters a minute. I prescribed Omnicef 300 mg twice a day for 5 days, prednisone 5 a day for a week. She will see me in the office in about 3 weeks with a chest x-ray. Otherwise she will refrain from s moking. She is probably going to need an outpatient sleep study.
--- NOTE | 2017-07-29 12:12 | DIS ---
DATE OF ADMISSION: 07/16/2017 DATE OF DISCHARGE: 07/29/2017 PRIMARY CARE PHYSICIAN: Yefri Patel M.D. DISCHARGE DISPOSITION: Home with home oxygen. PRIMARY DISCHARGE DIAGNOSES: Acute respiratory failure with hypoxia, aspiration pneumonia, status po st adult respiratory distress syndrome, sepsis with acute organ dysfunction, hyponatremia, hyperglyce natalia without ketosis, acute kidney failure, acute metabolic encephalopathy, resolved. SECONDARY DISCHARGE DIAGNOSES: Diabetes type 2, hypothyroidism, obesity with BMI 34, bipolar disorde r and diabetic toe ulcer. PRIMARY PROCEDURE/OPERATION: Endotracheal intubation and mechanical ventilatory support, bronchoscop y. RADIOLOGICAL INVESTIGATION: Several chest x-rays, CT brain was negative for any acute intracranial p rocess. Echocardiography showed normal EF. SIGNIFICANT LABORATORY DATA: WBC 12.8, hemoglobin 12.3, platelet 324. INR 1.4. Sodium 135, potassi um 4.1, BUN 18, creatinine 0.74, calcium 8.9, BNP 75.5. Urinalysis unremarkable. Urine drug screen negative. Serum ketones negative. Blood culture negative. Urine culture negative. Respiratory cul ture grew Nancy. DISCHARGE MEDICATIONS: Lipitor 40 mg p.o. at bedtime, buspirone 30 mg p.o. b.i.d., ferrous sulfate o ne tablet daily, gabapentin 800 mg t.i.d., [place] 10 one tablet q.6 hourly p.r.n., Toujeo insulin 40 u nits at bedtime and Humulin R 45 units subcu t.i.d., Synthroid 200 mcg p.o. daily, oxcarbazepine 600 mg 4 tablets at bedtime, prednisone 5 mg p.o. daily for 7 days, Omnicef 300 mg p.o. b.i.d. for 7 days and Zoloft 50 mg p.o. daily. CONTRAINDICATIONS: None. CODE STATUS: FULL CODE. INPATIENT VICE PRESIDENT [employer]: [facility] was following while in hospital. TEST RESULTS PENDING ON DISCHARGE: None. ALLERGIES: No known drug allergy. DISCHARGE PLAN: Post hospital, patient will follow up with primary care physician, Dr. Benson in [address] [place] [address]. The patient will need repeat chest x-ray upon followup visit. HOSPITAL COURSE: A 36-year-old female with above-mentioned medical problem who was admitted by Dr. Paul moura on 07/16/2017. The patient was confused and she was in respiratory distress. She was intubated . She was diagnosed with bilateral multifocal pneumonia. Pulmonary group was consulted. Ventilator managed by pulmonary group. The patient was treated with broad spectrum antibiotic therapy. She wa s meeting sepsis criteria with acute organ dysfunction. On admission, she had acute kidney failure, hyperglycemia without ketosis. She also developed ARDS and that is why she remained in ICU for a amanda kelsie period of time. Eventually successfully, she was extubated and transferred to telemetry floor. Her oxygen saturation did not improve completely despite optimum medical therapy and that is why [facility] recommended short term oxygen arrangement upon discharge. She is afebrile and hemodynami saud stable. We resumed all her previous medications. She will need repeat chest x-ray in 2-3 week s and follow up with Dr. Benson. He will do sleep study as an outpatient basis. [facility] clear ed her for discharge. We are arranging oxygen before discharge today. All new medication prescripti on given and sent to her pharmacy. The patient is advised to avoid smoking. The patient had respira tory culture positive for yeast and that is why Diflucan was also prescribed. Prednisone and steroid was tapered slowly while in hospital until 5 mg p.o. daily for another 7 days and then prednisone wi ll be discontinued. Patient is ambulatory and tolerating p.o. well. Vitals soto stable. The patient is seen and examine d at bedside today. Please see my progress note from today for further detail. Once oxygen arranged , then patient is medically cleared for discharge to go home.
[2017-07-29 17:03] VITALS: BP 176/95; TEMP 98.8
== END 2017-07-29 17:01 | disposition home or self-care (01) | DRG 853 ==
LOC: ERS 14:21 → CCU 15:07 → 2NO 07-25 15:59
PROVIDERS: ADMIT Internal Medicine; ATTEND Internal Medicine
PROC: 5A1955Z Respiratory Ventilation, Greater than 96 Consecutive Hours (ICD-10-PCS; principal; 2017-07-16)
PROC: 0BH17EZ Insertion of Endotracheal Airway into Trachea, Via Natural or Artificial Opening (ICD-10-PCS; 2017-07-16)
PROC: 0B9J8ZZ Drainage of Left Lower Lung Lobe, Via Natural or Artificial Opening Endoscopic (ICD-10-PCS; 2017-07-18)
PROC: 0B9K8ZZ Drainage of Right Lung, Via Natural or Artificial Opening Endoscopic (ICD-10-PCS; 2017-07-18)
PROC: 0B9G8ZZ Drainage of Left Upper Lung Lobe, Via Natural or Artificial Opening Endoscopic (ICD-10-PCS; 2017-07-18)
PROC: 0B918ZZ Drainage of Trachea, Via Natural or Artificial Opening Endoscopic (ICD-10-PCS; 2017-07-18)
DX: A41.9 Sepsis, unspecified organism (principal); J96.01 Acute respiratory failure with hypoxia; J96.02 Acute respiratory failure with hypercapnia; J69.0 Pneumonitis due to inhalation of food and vomit; G93.41 Metabolic encephalopathy; E87.2 Acidosis; E11.52 Type 2 diabetes mellitus with diabetic peripheral angiopathy with gangrene; I96 Gangrene, not elsewhere classified; J80 Acute respiratory distress syndrome; E87.1 Hypo-osmolality and hyponatremia; N17.9 Acute kidney failure, unspecified; R65.20 Severe sepsis without septic shock; F31.9 Bipolar disorder, unspecified; E11.621 Type 2 diabetes mellitus with foot ulcer; L97.519 Non-pressure chronic ulcer of other part of right foot with unspecified severity; F17.210 Nicotine dependence, cigarettes, uncomplicated; F20.9 Schizophrenia, unspecified; E11.65 Type 2 diabetes mellitus with hyperglycemia; D69.6 Thrombocytopenia, unspecified; E11.22 Type 2 diabetes mellitus with diabetic chronic kidney disease; N18.9 Chronic kidney disease, unspecified; E66.01 Morbid (severe) obesity due to excess calories; Z68.34 Body mass index [BMI] 34.0-34.9, adult; E89.0 Postprocedural hypothyroidism; Z85.850 Personal history of malignant neoplasm of thyroid; Z79.4 Long term (current) use of insulin; Z79.899 Other long term (current) drug therapy; Z89.412 Acquired absence of left great toe
CPT/HCPCS: 31500; 36415; 36416; 36556; 51702; 70450; 71045; 71046; 76700; 80048; 80053; 80306; 80307; 81003; 81015; 82010; 82140; 82150; 82553; 82805; 83605; 83690; 83880; 84443; 84484; 84703; 85025; 85610; 85730; 86850; 86900; 86901; 87040; 87070; 87086; 87205; 90471; 90670; 92950; 93005; 93306; 94002; 94003; 94644; 94760; 96365; 96367; 96368; 96375; 99292; A4216; C9113; G0009; G8978-GP-CN; G8979-GP-CK; J0171; J0360; J0692; J1100; J1450; J1650; J1815; J1940; J1956; J2060; J2248; J2270; J2543; J2704; J2920; J3010; J3370; J3411; J3475; J3480; J7050; J7611; J7620; J7626

== ENCOUNTER 2017-10-07 15:13 | Outpatient (CLI) | payer MEDICARE, MEDICAID | END 2017-10-07 15:14 | disposition home or self-care (01) | LOC: BICRAD 15:13 | PROVIDERS: ATTEND Neurological Surgery | DX: M54.16 Radiculopathy, lumbar region (principal); M46.96 Unspecified inflammatory spondylopathy, lumbar region; Z98.890 Other specified postprocedural states | CPT/HCPCS: 72100 ==

== ENCOUNTER 2018-05-26 10:10 | Outpatient (CLI) | payer MEDICARE, MEDICAID ==
--- NOTE | 2018-05-26 11:57 | RAD ---
LUMBAR SPINE SERIES THREE VIEWS: History: Back pain. History of previous back surgery. FINDINGS: Vertebral bodies are normal in height. Post-operative changes with left unilateral pedicle screws at L5-S1. The lower screw is fractured. This appears to be a new finding. Review is also made of the 09-1118 examination and it also appears to be new as compared to that study. The disc narrowing at L2-3 is stable. IMPRESSION: 1. Left unilateral pedicle screws at L5-S1. The S1 screw is fractured which appears to be a new findi ng. 2. Degenerative disc narrowing at L2-3 is stable. 3. Markers of the disc implant at L5-S1 level are seen within the confines of the disc level. POS: TPC
== END 2018-05-26 10:11 | disposition home or self-care (01) ==
LOC: TBSIIMAG 10:10
PROVIDERS: ATTEND Neurological Surgery
DX: M51.36 Other intervertebral disc degeneration, lumbar region (principal); Z98.890 Other specified postprocedural states; M48.061 Spinal stenosis, lumbar region without neurogenic claudication
CPT/HCPCS: 72100

== ENCOUNTER 2018-06-01 19:16 | Inpatient (IN) | payer MEDICARE, MEDICAID ==
[2018-06-01] MEDS ORDERED: Piperacillin/Tazobactam 4.5 GM VIAL ONE (19:38)
--- NOTE | 2018-06-01 19:49 | RAD ---
Frontal radiograph chest: 06/01/2018 COMPARISON: 08/12/2017 HISTORY: Pneumonia, dyspnea FINDINGS: Heart and mediastinal contours are stable. There is patchy interstitial opacity in the lung bases, left greater than right, with bibasilar airspace disease, left greater than right. No pneumothorax or large volume pleural effusion. No lobar consolidation. IMPRESSION: Nonspecific bibasilar interstitial and alveolar opacity, left greater than right. Finding s may signify infectious pneumonitis, aspiration, and/or edema. Follow-up to resolution advised.
[2018-06-01 20:07] LABS: #Basophils 0.1 thou/uL (0.0-0.2); #Eosinphils 0.1 thou/uL (0.0-0.7); #Lymphocytes 1.9 thou/uL (1.20-3.40); #Monocytes 0.8 thou/uL (0.11-0.59); #Neutrophils 8.5 thou/uL (1.40-6.50); %Basophils 0.5 % (0.0-1.0); %Lymphocytes 16.9 % (21.0-51.0); %Monocytes 6.9 % (0.0-10.0); %Neutrophils 74.6 % (42.0-75.0); Hemoglobin 10.1 g/dL (12.0-16.0); Mean Corpuscular HGB CONC 32.8 g/dL (32.0-36.0); Mean Corpuscular Hemoglobin 31.2 pg (27.0-31.0); Mean Corpuscular Volume 95.1 fL (78.0-98.0); Platelet Count 192 thou/uL (130-400); RBC Distribution Width 13.5 % (11.5-14.5); Red Blood Cell (RBC) Count 3.22 mill/uL (4.20-5.40); White Blood Cell (WBC) Count 11.4 thou/uL (4.8-10.8)
[2018-06-01 20:21] LABS: Actual Bicarbonate (HCO3a) 26.8 mEq/L (22-28); Analyzer IN Cardio ER; Base Excess (BEa) 0.8 mEq/L (-2.0 to +3.0); CO2 Tension 48.8 mmHg (35.0-45.0); Calcium, Ionized 1.04 mmol/L (1.12-1.30); Carboxyhemoglobin (COHb) 0.8 gm% (0.0-3.0); Hemoglobin (Hb) 11.6 g/dL (12.0-16.0); O2 Tension (PaO2) 218.6 mmHg (80.0-100.0); Potassium - ABG Lab 3.42 mmol/L (3.70-5.30); pH, Arterial 7.36 (7.35-7.45)
[2018-06-01 20:23] LABS: Puncture Site RRA
[2018-06-01 20:26] LABS: Bilirubin Negative (Negative); Blood, Urine Trace (Negative); Clarity CLOUDY (Clear); Glucose, Urine (Dipstick) 250 mg/dL (Negative); Leukocyte Small (Negative); Nitrite Positive (Negative); Protein, Urine (Dipstick) 100 mg/dL (Neg-Trace); Specific Gravity, Urine 1.016 (1.002-1.036); Urobilinogen 0.2 mg/dL (0.2-1.0); pH, Urine 5.5 (5.0-9.0)
[2018-06-01 20:28] LABS: Pathc Cast-AUWi Flag 1.63 (0-2.49); RBC/HPF None Seen HPF (0-3); Squamous Epithelial 0-3 HPF (0-3)
[2018-06-01 20:32] LABS: ALT (SGPT) 25 U/L (8-55); AST (SGOT) 40 U/L (5-34); Albumin 3.7 g/dL (3.5-5.0); Alkaline Phosphatase 134 U/L (40-150); Anion Gap 16 mmol/L (10-20); BUN (Urea Nitrogen) 35 mg/dL (7.0-18.7); Bilirubin, Total 0.2 mg/dL (0.2-1.2); Calc. Creatinine Clearance 0 mL/min (70-130); Calcium 8.2 mg/dL (7.8-10.44); Carbon Dioxide 25 mmol/L (22-29); Chloride 102 mmol/L (98-107); Estimated GFR-MDRD 32; Globulin 3.8 g/dL (2.4-3.5); Glucose 127 mg/dL (70-105); Potassium 4.2 mmol/L (3.5-5.1); Protein, Total 7.5 g/dL (6.0-8.3); Sodium 139 mmol/L (136-145)
[2018-06-01 20:33] LABS: Pregnancy Test - Urine (BHCG) Negative (Negative); Pregu Control Background? CLEAR/WHITE (CLR/WHITE); Pregu Control Bar Appear? YES (CONTROL BAR); Specific Gravity 1.016 (1.002-1.036)
[2018-06-01 20:42] LABS: Hyaline Casts/LPF 4-6 HYALINE CAST LPF (0-3 Hyaline)
[2018-06-01 20:43] LABS: Bacteria/HPF 2+ HPF (None Seen)
[2018-06-02] MEDS ORDERED: Dextrose 50% Abboject 50 ML SYRINGE SLOW IVP PRN (00:23)
[2018-06-02] MEDS ORDERED: Dextrose 5% in Water 1,000 ML IV PRN (00:23)
[2018-06-02] MEDS ORDERED: Ondansetron ODT 4 MG TAB SL PRN (00:34)
[2018-06-02] MEDS: guaiFENesin/DM ER PO SCH ×2 (01:30→20:23)
[2018-06-02] MEDS: Acetaminophen 325 MG TAB PO PRN (01:31)
[2018-06-02] MEDS: Sodium Chloride 0.9% 1,000 ML IV SCH ×2 (01:34→14:13)
--- NOTE | 2018-06-02 04:04 | HP ---
CHIEF COMPLAINT: Shortness of breath. HISTORY OF PRESENT ILLNESS: The patient is a 37-year-old female with a history of smoking and asthma, who presented to the emergency department on 05/30. She was diagnosed with possible pneumonia and discharged with p.o. azithromycin. She got that filled yesterday, took 2 yesterday. Said she was feeling a little bit better, although she was continuing to have some shortness of breath and wheezing today. She got up, still feeling relatively well. Her daughter, who is at home with her, also apparently has had some pneumonia and they were both sleeping when the daughter awakened, she could not awaken her mother, so she called an ambulance. When the ambulance arrived, apparently, her temperature was around 104. They subsequently brought her back to the emergency department. In the emergency department, the patient had significant hypoxia, required high-flow oxygen supplementation in order to maintain her oxygen saturations. She received nebulizer treatments there and she reports that is when she really started coughing the most and her cough had become a bit more productive after the nebulizer as well. The patient reports that she does not really remember much of the events that happened today until she was here at the hospital and started to come around a bit more. REVIEW OF SYSTEMS: Notable for constipation and joint pains. All other systems were reviewed and all pertinent positives and negatives noted in the history of present illness. PAST MEDICAL HISTORY: Diabetes, asthma, hypothyroidism, bipolar disorder, chronic diabetic ulcers of the feet, seizure disorder, restless legs syndrome, and hyperlipidemia. PAST SURGICAL HISTORY: Back surgery x2, thyroidectomy, cholecystectomy, and amputation of toes. FAMILY HISTORY: Notable for thyroid disease, diabetes, and heart disease. SOCIAL HISTORY: The patient smokes one-half to a pack of cigarettes per day. She has a history of using cocaine, methamphetamine, and marijuana. She does not use any that now. She denies alcohol. She has a common-law . She is a full code and her or mother will be her surrogate decision maker should that be necessary. ALLERGIES: NONE. CURRENT MEDICATIONS: 1. Phenergan with codeine p.r.n. 2. Zofran ODT p.r.n. 3. Oxcarbazepine 2400 mg at bedtime. 4. Gabapentin one p.o. t.i.d. 5. Paroxetine 40 mg daily. 6. Atorvastatin 40 mg at bedtime. 7. Synthroid 150 mcg p.o. daily. PHYSICAL EXAMINATION: VITAL SIGNS: Temperature is 100.2, blood pressure is 156/90, pulse , respirations 25, and O2 saturation was 100% on a non-rebreather. GENERAL APPEARANCE: An age-appropriate female. She is awake, alert, oriented, pleasant, and cooperative. HEENT: PERRL. No OP lesions. HEART: Regular rate and rhythm without murmurs, gallops, or rubs. LUNGS: Harsh rales and wheezes heard throughout all lung ayala. ABDOMEN: Soft, nontender, and nondistended. Positive bowel sounds. No masses. No organomegaly. EXTREMITIES: No edema. She has slightly diminished pulses. She has a left great toe amputation with some drainage at the stump base also. Right great toe has open lesion on the plantar surface. NEUROLOGIC: Otherwise appears to be grossly intact. PSYCH: The patient has normal affect and behavior. LABORATORY DATA: White count 11.4, hemoglobin 10.1, platelets 192. Sodium 139, potassium 4.2, chloride 102, BUN 35, creatinine 1.79, and glucose 127. AST 40. Albumin 3.7. Urinalysis shows positive nitrites, small leukocyte esterase, 11- 20 white cells, 2+ bacteria. test is negative. DIAGNOSTIC DATA: Chest x-ray shows left lower lobe infiltrate and small right lower lobe infiltrate. IMPRESSION AND PLAN: 1. Acute hypoxic respiratory failure. The patient has required significant support in order to maintain oxygen levels in the emergency department, appears to be getting better. it appears to be secondary to pneumonia, asthma and likely some chronic obstructive pulmonary disease by now as well. 2. Pneumonia. The patient has bibasilar infiltrates. She was a bit out of it today. It is unknown whether she may have had some aspiration along the way, but she presented on the to the emergency department with similar symptoms, though may be less likely. We will continue with vancomycin and Zosyn for now, considering the possibility of aspiration and concern for her draining ulcers on the feet. Continue nebulizer treatments and give some mucolytic, cough suppressant as well. 3. Asthma. Continue nebulizer treatments. May need to initiate some steroids, but we will hold off on that for now given the infectious etiology and the fact that she seems to be improving and maintaining her saturations well. 4. Rqnrc-um-puwaolv kidney injury or vulnn-kx-yxczetb kidney failure. The patient's normal GFR tends to run around 70s on average. She has a lot of variability with that, however, numbers are higher now. We will continue with some hydration and continue to monitor. 5. Diabetes mellitus. Continue with Accu-Cheks and sliding scale. 6. Possible urinary tract infection. Follow up culture, should be covered with vancomycin and Rocephin. 7. Diabetic ulcers on both feet, so we will get x-rays, and consult Wound Care. These appear to be a long-standing. 8. Hyperlipidemia. Continue with the atorvastatin. 9. Hypothyroidism. Continue synthroid. 10. Restless legs syndrome. Continue gabapentin. 11. Peptic ulcer disease prophylaxis with Pepcid and DVT prophylaxis with Lovenox. Job ID: [id number] [facility]
[2018-06-02] MEDS: HYDROcodone/Acetaminophen 5/325 mg Tablet PO PRN (05:27)
[2018-06-02] MEDS: Levothyroxine 150 MCG TAB PO SCH (05:27)
[2018-06-02] MEDS: Piperacillin/Tazobactam 3.375 GM in Sodium Chloride 0.9% 100 ML IVPB SCH ×3 (05:28→17:24)
[2018-06-02] MEDS: HumaLOG 300 UNITS/3 ML VIAL SC PRN ×4 (05:59→20:27)
--- NOTE | 2018-06-02 07:59 | RAD ---
LEFT 1ST DIGIT 3 VIEWS: HISTORY: Diabetic ulcer. FINDINGS: There is amputation of the 1st digit. There are erosive changes along with demineralization involvin g the visualized phalanx of the 1st digit. Correlate clinically for osteomyelitis. There is evidenc e of soft tissue swelling with ulceration. IMPRESSION: Cellulitis/osteomyelitis. POS: LUIS
--- NOTE | 2018-06-02 08:00 | RAD ---
RIGHT TOE 3 VIEWS: HISTORY: Draining diabetic ulcer. COMPARISON: None. FINDINGS: No significant erosive or destructive changes in the visualized right thoracic structures. Joint spa sherry are preserved. No evidence of an ulcerative lesion. IMPRESSION: Unremarkable right toes 3 views. POS: LUIS
[2018-06-02] MEDS: PARoxetine 20 MG TAB PO SCH (09:45)
[2018-06-02] MEDS: Enoxaparin Sodium 40 MG/0.4 ML SYRINGE SC SCH (09:46)
[2018-06-02] MEDS: Famotidine 20 MG TAB PO SCH ×2 (09:46→20:23)
[2018-06-02] MEDS: Gabapentin 400 MG CAP PO SCH ×3 (09:46→20:23)
[2018-06-02] MEDS: Vancomycin HCl 1 GM in Premix Bag 1 BAG IVPB SCH ×2 (09:50→20:25)
--- NOTE | 2018-06-02 12:38 | PQF ---
CLINICAL DOCUMENTATION IMPROVEMENT CLARIFICATION FORM: ICD-10 Updated PLEASE DO AN ADDENDUM TO THE PROGRESS NOTE WITH ANY DOCUMENTATION UPDATES OR ADDITIONS AND CARRY THROUGH TO DC SUMMARY. THANK YOU. DATE: 06/02/18 ATTN : DR. GARAY Please exercise your independent, professional judgment in responding to the clarification form. Clinical indicators are provided on the bottom of this form for your review Please check appropriate box(es): [ ] Sepsis due to: (Pna, UTI, gangrenous gall bladder, etc.) Due to: [ ] Device (please specify) [ ] Implant [ ] Graft [ ] Infusion [ ] SIRS due to non-infectious process (please specify etiology) [ ] with organ dysfunction [ ] without organ dysfunction [ ] Severe sepsis with acute organ dysfunction of: (Examples: respiratory failure, encephalopathy, acute kidney failure, other) [ ] Septic Shock [ ] Localized infection without sepsis [ ] Other diagnosis [ ] Unable to determine In addition, please specify: Present on Admission (POA): [ ] Yes [ ] No [ ] Unable to determine For continuity of documentation, please document condition throughout progress notes and discharge summary. Thank You. CLINICAL INDICATORS - SIGNS / SYMPTOMS / LABS DX: "PNEUMONIA" TEMP 101.5 RR 28 WBC 11.4 RISKS: PNEUMONIA POSSIBLE UTI DIABETIC FOOT ULCERS TREATMENT: IV VANCOMYCIN (ER-PRESENT) IV ZOSYN (ER-PRESENT) IV FLUIDS (ER-PRESENT) BLOOD CULTURES MONITORING IN IMCU [employer] Winform Viewer (This form is maintained as a part of the permanent medical record) 2014 [employer]. All Rights Reserved [email or web address] Office: [phone] [facility]
--- NOTE | 2018-06-02 14:24 | CON ---
DATE OF CONSULTATION: HISTORY OF PRESENT ILLNESS: Billie Phillips is a morbidly obese 37-year-old female, who is brought to the hospital with respiratory failure and pneumonia. X-ray shows a new infiltrate. She will be coughing up sputum, which is apparently relatively clear. Denies any fever or chills. She lives with her in [place]. X-ray shows a new left-sided infiltrate and a smaller right basilar infiltrate. She was apparently found unresponsive. Sats were apparently low at 44% as per the note from the ER. PAST MEDICAL HISTORY: Pertinent for recurrent pneumonia, morbid obesity, bipolar, anxiety, depression, previous drug abuse. SOCIAL HISTORY: Still smoking a pack a day. Alcohol abuse. PAST SURGICAL HISTORY: None recently. HOME MEDICATIONS: Includes; 1. Seroquel 150. 2. Oxcarbazepine 25 mg at nighttime. 3. Synthroid 150. 4. Gabapentin 3 times a day. 5. Lipitor 40. 6. Saphris one tablet twice a day. 7. Albuterol inhaler. 8. She is now on;. a. Vancomycin. b. Zosyn. ALLERGIES: NONE. REVIEW OF SYSTEMS: Otherwise, unremarkable. PHYSICAL EXAMINATION: VITAL SIGNS: Temperature 99, blood pressure 112/74, saturations are 94% to 95% on 2 L, pulse of 80. CHEST: Diffuse wheezing. Bilateral crackles. CARDIAC: Normal S1 and S2. No gallops. ABDOMEN: No masses. LABORATORY DATA: PO2 is 218, pCO2 40%, pH 7.36. White count 9000, H and H of 10 and 30, and platelet count is normal. Lytes, creatinine 1.79. Baseline creatinine was normal. IMPRESSION: 1. Bilateral bronchopneumonia, left greater than right. 2. Morbid obesity, probably recurrent aspiration. 3. Probably sleep apnea. 4. Bipolar. 5. Tobacco abuse. 6. Renal failure. PLAN: I agree with present antibiotic deescalation. I have added low-dose steroids. Scheduling neb treatments, PT, supportive care. Consultation note, 70 minutes, 50% direct patient care. Job ID: [id number]
[2018-06-02] MEDS: Atorvastatin Calcium 40 MG TAB PO SCH (20:23)
[2018-06-02] MEDS ORDERED: OXcarbazepine 600 MG TAB PO SCH (21:00)
[2018-06-02] MEDS ORDERED: OXcarbazepine 300 MG TAB PO SCH (21:15)
[2018-06-03] MEDS: Acetaminophen 325 MG TAB PO PRN ×2 (00:27→21:28)
[2018-06-03] MEDS: Piperacillin/Tazobactam 3.375 GM in Sodium Chloride 0.9% 100 ML IVPB SCH ×4 (00:29→16:58)
[2018-06-03] MEDS: Sodium Chloride 0.9% 1,000 ML IV SCH ×2 (02:52→15:54)
[2018-06-03 04:47] LABS: #Basophils 0.1 thou/uL (0.0-0.2); #Eosinphils 0.2 thou/uL (0.0-0.7); #Lymphocytes 1.8 thou/uL (1.20-3.40); #Monocytes 0.6 thou/uL (0.11-0.59); %Basophils 0.4 % (0.0-1.0); %Eosinophils 1.1 % (0.0-10.0); %Lymphocytes 12.5 % (21.0-51.0); Hemoglobin 9.8 g/dL (12.0-16.0); Mean Corpuscular HGB CONC 33.7 g/dL (32.0-36.0); Mean Corpuscular Hemoglobin 32.3 pg (27.0-31.0); Mean Corpuscular Volume 95.9 fL (78.0-98.0); Mean Platelet Volume 10.1 fL (7.4-10.4); Platelet Count 144 thou/uL (130-400); RBC Distribution Width 13.4 % (11.5-14.5); Red Blood Cell (RBC) Count 3.02 mill/uL (4.20-5.40); White Blood Cell (WBC) Count 14.7 thou/uL (4.8-10.8)
[2018-06-03 05:05] LABS: Anion Gap 12 mmol/L (10-20); BUN (Urea Nitrogen) 17 mg/dL (7.0-18.7); Calc. Creatinine Clearance 133 mL/min (70-130); Calcium 8.2 mg/dL (7.8-10.44); Carbon Dioxide 29 mmol/L (22-29); Chloride 102 mmol/L (98-107); Estimated GFR-MDRD 70; Glucose 171 mg/dL (70-105); Potassium 3.1 mmol/L (3.5-5.1); Sodium 140 mmol/L (136-145)
[2018-06-03] MEDS: Levothyroxine 150 MCG TAB PO SCH (06:15)
[2018-06-03] MEDS: HumaLOG 300 UNITS/3 ML VIAL SC PRN ×4 (06:16→21:32)
--- NOTE | 2018-06-03 08:07 | PRG ---
DATE OF SERVICE: 06/03/2018 SUBJECTIVE: This morning, she is looking better, less short of breath, less cough. OBJECTIVE: VITAL SIGNS: Saturations are 95% on 3 L, temperature 98, blood pressure 126/96, respiratory 18. CHEST: Decreased breath sounds. No wheezing. CARDIAC: Normal S1, S2. No gallops. ABDOMEN: Soft. LABORATORY DATA: Urine shows E. coli. Sputum culture is pending. White count 14,000. IMPRESSION: Respiratory failure, bilateral pneumonia, obesity, urinary tract infection. PLAN: Zosyn and vancomycin on board. I am going to discontinue the vancomycin. Otherwise, continue supportive care, PT. She can probably be transferred out of the MICU monitored bed. Job ID: [id number]
[2018-06-03] MEDS: Famotidine 20 MG TAB PO SCH ×2 (08:45→21:27)
[2018-06-03] MEDS: Gabapentin 400 MG CAP PO SCH ×3 (08:45→21:27)
[2018-06-03] MEDS: PARoxetine 20 MG TAB PO SCH (08:45)
[2018-06-03] MEDS: Enoxaparin Sodium 40 MG/0.4 ML SYRINGE SC SCH (08:45)
[2018-06-03] MEDS: guaiFENesin/DM ER PO SCH ×2 (09:28→23:24)
--- NOTE | 2018-06-03 13:39 | PRG ---
DATE OF SERVICE: 06/03/2018 SUBJECTIVE: The patient says she is feeling better. Her primary concern is that she feels a little shaky and generally weak, but otherwise lack of breathing is somewhat improved. Minimal cough. OBJECTIVE: VITAL SIGNS: Temperature 98.6, pulse 87, respirations are 24, BP 160/93, and O2 saturations 93% on nasal cannula. GENERAL APPEARANCE: An obese, age-appropriate female, in no distress. She is sitting up in chair, awake, alert, oriented, pleasant, and cooperative, not tachypneic at the time of my exam. HEENT: PERRL. No acute lesions. HEART: Regular rate and rhythm without murmurs, gallops, or rubs. LUNGS: Continue to have diffuse rales and wheezes with slightly better air exchange. ABDOMEN: At the time of admission, abdomen was soft, nontender, and nondistended. Positive bowel sounds. No masses. No organomegaly. EXTREMITIES: No cyanosis, clubbing, or edema. LABORATORY DATA: White count 14.7, hemoglobin 9.8, BUN 17, creatinine 0.9, and glucose 169 to 242. Urine culture growing presumptive E coli. IMPRESSION AND PLAN: 1. Multilobar bilateral pneumonia. We will continue with the antibiotics. Currently, she is on Rocephin and p.o. Levaquin. Continue steroids, nebulizer treatments. 2. Generalized weakness. Her weakness and shakiness are likely due to steroids and the nebulizer treatments. We will continue to work with Physical Therapy. 3. Urinary tract infection with presumptive E coli, should be covered with Rocephin and Levaquin. Sensitivities are not back yet. 4. Hyperglycemia. The patient does not carry a history of diabetes, who has been on no medications. Her blood sugar is running high, which may be partly due to her acute illness, but may be simply underlying diabetes. We will check A1c. Continue Accu-Cheks and provide sliding scale insulin. 5. Diabetic ulcers on both feet. Her x-ray ordered at the time of admission showed some erosive changes along with demineralization involving the visualized phalanx of the first digit concerning for possible osteomyelitis. The patient will need further evaluation of this likely with MRI. 6. Sepsis due to the underlying pneumonia, appears to be stabilizing. 7. Anemia appears to be chronic based on her previous lab value readings. 8. Bipolar disorder, stable. 9. Hypothyroidism. Continue with the Synthroid. Job ID: [id number]
--- NOTE | 2018-06-03 16:39 | MRI ---
MR of the left foot without contrast INDICATION: Concern for osteomyelitis of the great toe. COMPARISON: Radiographs of the left foot dated 06/02/2018 FINDINGS: There is abnormal marrow signal and involving the residual great toe proximal phalanx suspicious for osteomyelitis. There is prominent surrounding cellulitis or lymphedema. No great toe joint effusion is evident. No drainable fluid collection is grossly evident. There is prominent atrophy of the intri nsic foot musculature. Visualized flexor and extensor tendons appear within normal limits. IMPRESSION: Great toe proximal phalangeal osteomyelitis. There is cellulitis versus lymphedema of the residual great toe and dorsal foot.
[2018-06-03] MEDS ORDERED: Insulin Glargine 10 UNITS in Pre-Filled Syringe SC SCH (17:30)
[2018-06-03] MEDS ORDERED: Potassium Chloride 20 MEQ TAB PO SCH (20:30)
[2018-06-03] MEDS: Atorvastatin Calcium 40 MG TAB PO SCH (21:27)
[2018-06-03] MEDS: OXcarbazepine 300 MG TAB PO SCH (21:32)
[2018-06-04] MEDS: Piperacillin/Tazobactam 3.375 GM in Sodium Chloride 0.9% 100 ML IVPB SCH ×2 (01:13→05:49)
[2018-06-04] MEDS: Levothyroxine 150 MCG TAB PO SCH (05:47)
[2018-06-04] MEDS: HumaLOG 300 UNITS/3 ML VIAL SC PRN ×4 (05:50→21:12)
[2018-06-04] MEDS: Sodium Chloride 0.9% 1,000 ML IV SCH ×2 (06:12→20:58)
--- NOTE | 2018-06-04 09:17 | RAD ---
EXAM: CHEST ONE VIEW HISTORY: Pneumonia COMPARISON: 06/01/2018 FINDINGS: Cardiac silhouette is within normal limits for portable technique of the study. There is been interva l increase in interstitial and alveolar opacities on the left with interval development of alveolar opacities and consolidation on the right. Findings are worrisome for bilateral multifocal pneumonia. Atypical pneumonia is a differential consideration. The osseous structures are intact. IMPRESSION: Increase in bilateral interstitial and alveolar opacities likely attributable to bilateral pneumonia and possibly atypical pneumonia.
[2018-06-04] MEDS: Famotidine 20 MG TAB PO SCH ×2 (09:24→20:59)
[2018-06-04] MEDS: guaiFENesin/DM ER PO SCH ×2 (09:24→21:22)
[2018-06-04] MEDS: PARoxetine 20 MG TAB PO SCH (09:24)
[2018-06-04] MEDS: Enoxaparin Sodium 40 MG/0.4 ML SYRINGE SC SCH (09:24)
[2018-06-04] MEDS: Gabapentin 400 MG CAP PO SCH ×3 (09:24→21:00)
[2018-06-04] MEDS: Insulin Glargine 15 UNITS in Pre-Filled Syringe SC SCH (09:25)
--- NOTE | 2018-06-04 10:04 | PRG ---
DATE OF SERVICE: 06/04/2018 SUBJECTIVE: This morning, she is better, sitting on the side of the bed. OBJECTIVE: VITAL SIGNS: 99% saturations resp.18, pulse 87, temperature 99, blood pressure 132\76. CHEST: Bilateral wheezing. CARDIAC: Normal S1, S2. No gallops. ABDOMEN: No masses. IMPRESSION: 1. Asthma. 2. Pneumonia. 3. Severe deconditioning. 4. Presumed urinary tract infection. PLAN: Switch over to p.o. antibiotics, p.o. steroids, added Dulera to her present regime. Baseline chest x-ray. Hopefully, she can go home in the next 24-48 hours. cxr bilateral infilterates? echo bnp ordered Job ID: [id number] MTDD
[2018-06-04 10:09] LABS: Anion Gap 13 mmol/L (10-20); BUN (Urea Nitrogen) 11 mg/dL (7.0-18.7); Calc. Creatinine Clearance 147 mL/min (70-130); Calcium 8.4 mg/dL (7.8-10.44); Carbon Dioxide 28 mmol/L (22-29); Chloride 98 mmol/L (98-107); Estimated GFR-MDRD 81; Glucose 225 mg/dL (70-105); Potassium 3.4 mmol/L (3.5-5.1); Sodium 136 mmol/L (136-145)
[2018-06-04 10:12] LABS: Mean Corpuscular HGB CONC 32.7 g/dL (32.0-36.0); Mean Corpuscular Hemoglobin 30.9 pg (27.0-31.0); Mean Corpuscular Volume 94.4 fL (78.0-98.0); Mean Platelet Volume 10.3 fL (7.4-10.4); Platelet Count 148 thou/uL (130-400); RBC Distribution Width 13.3 % (11.5-14.5); Red Blood Cell (RBC) Count 3.23 mill/uL (4.20-5.40); White Blood Cell (WBC) Count 13.8 thou/uL (4.8-10.8)
[2018-06-04] MEDS ORDERED: Furosemide 20 MG/2 ML VIAL SLOW IVP SCH (10:30)
[2018-06-04 10:44] LABS: Band 11 % (5-11); Eosinophils 1 % (0-10); Lymphocytes 12 % (21-51); MDiff Complete? YES; Monocytes 3 % (0-10); Neutrophil 71 % (42-75); Platelet Morphology Comment Appears Adequate; Reactive Lymphocytes 2 % (0-10); Reflex for Review?? NO; Rouleaux Formation MODERATE= 6-15 cells (100X) (None Seen)
--- NOTE | 2018-06-04 13:58 | PDOC.PN ---
- Subjective Encounter Start Date: 06/04/18 Encounter Start Time: 13:10 CC; SOB SUBJECTIVE; PATIENT SEEN AND EVAL. MOTHER PRESENT. SOB BETTER. PER NURSE, 5 LITERS OF OXYGEN WITH SOME WORK OF BREATHING. NO OTHER ACUTE EVENTS. ROS; ALL SYSTEMS ARE REVIEWED AND NEGATIVE EXCEPT FOR THE ONES MENTIONED ABOVE - Objective Resuscitation Status - Order Detail: 06/02/18 00:18 Resuscitation Status Routine Resuscitation Status: FULL: Full Resuscitation MAR Reviewed: Yes Vital Signs & Weight: Vital Signs (12 hours) Temp Pulse Resp Pulse Ox Pulse Ox Pulse Ox Pulse Ox 06/04/18 10:37 99.9 F H 06/04/18 09:55 93 L 88 L 95 06/04/18 08:19 99 06/04/18 08:17 87 24 H 99 06/04/18 07:47 92 L 06/04/18 07:05 99.9 F H 06/04/18 03:55 98.8 F Weight Admit Weight 218 lb 14.4 oz Weight 213 lb 14.4 oz Most Recent Monitor Data Heart Rate from ECG 98 NIBP 148/91 NIBP BP-Mean 110 Respiration from ECG 19 SpO2 95 I&O: 06/03/18 06/04/18 06/05/18 06:59 06:59 06:59 Intake Total 3609 4045 Output Total 4100 1500 Balance -491 2545 Result Diagrams: 06/04/18 09:33 06/04/18 09:33 Additional Labs: Accuchecks 06/04/18 06/04/18 06/03/18 10:28 05:33 19:53 POC Glucose 225 H 232 H 276 H 06/03/18 16:42 POC Glucose 343 H Radiology Reviewed by me: Yes EKG Reviewed by me: Yes Phys Exam - Physical Examination HEENT: PERRLA, moist MMs, sclera anicteric Neck: no nodes, no JVD Respiratory: wheezing present LABORED BREATHING. COARSE SOUND BILATERALLY. Cardiovascular: RRR, no significant murmur, no rub Gastrointestinal: soft, non-tender, no distention Musculoskeletal: no edema, pulses present Neurological: non-focal, normal sensation Psychiatric: normal affect, A&O x 3 Deviation from normal: PALLOR. STAGE 3 ULCER LEFT BIG TOE Dx/Plan (1) Acute respiratory failure with hypoxia and hypercapnia Code(s): J96.01 - ACUTE RESPIRATORY FAILURE WITH HYPOXIA; J96.02 - ACUTE RESPIRATORY FAILURE WITH HYPERCAPNIA Status: Acute Plan: IMPROVING OXYGEN SUPPORT. (2) Pneumonia Code(s): J18.9 - PNEUMONIA, UNSPECIFIED ORGANISM Status: Acute Plan: NONSPECIFIC. ASPIRATION RULED OUT. CONTINUE CURRENT ANTIBIOTICS (3) Toe osteomyelitis, left Code(s): M86.9 - OSTEOMYELITIS, UNSPECIFIED Status: Acute Plan: SUSPECT CHRONIC DIABETIC OSTEO OF LEFT 1st TOE. GENERAL SURGEON CONSULTED (4) Acute on chronic kidney failure Code(s): N17.9 - ACUTE KIDNEY FAILURE, UNSPECIFIED; N18.9 - CHRONIC KIDNEY DISEASE, UNSPECIFIED Status: Acute Plan: STAGE 2. RESOLVED (5) Bipolar disorder Code(s): F31.9 - BIPOLAR DISORDER, UNSPECIFIED Status: Chronic Qualifiers: Active/Remission status: remission status unspecified Qualified Code(s): F31.9 - Bipolar disorder, unspecified Comment: Stbale, no Mnaia/ Depression noted. (6) DM type 2 (diabetes mellitus, type 2) Status: Chronic Qualifiers: Diabetes mellitus alf insulin use: with alf use Diabetes mellitus complication status: with kidney complications Chronic kidney disease stage: unspecified stage Comment: Continue SSI. Stbale well controlled. (7) Diabetic toe ulcer Code(s): E11.621 - TYPE 2 DIABETES MELLITUS WITH FOOT ULCER; L97.509 - NON- PRESSURE CHRONIC ULCER OTH PRT UNSP FOOT W UNSP SEVERITY Status: Chronic Plan: STAGE 3 PRESENT ON ADMIT (8) Hypothyroidism Code(s): E03.9 - HYPOTHYROIDISM, UNSPECIFIED Status: Chronic (9) Obesity (BMI 30.0-34.9) Code(s): E66.9 - OBESITY, UNSPECIFIED Status: Chronic - Plan cont current plan of care CONTINUE CURRENT TREATMENT. TAPER OXYGEN WHEN POSSIBLE. PATIENT STATES NO OXYGEN PRIOR ADMIT. CODE; FULL CORE; LOVENOX, PPI DISP; TELEMETRY PROG; GUARDED CLINICAL STATUS; GUARDED EXPECTED DISCHARGE; TBD TOTAL TIME SPENT; 35 MINUTES DATE OF SERVICE; 06/04/2018
[2018-06-04] MEDS: Mometasone/Formoterol 120 PUFF INHALER INH SCH (19:22)
--- NOTE | 2018-06-04 20:34 | HP ---
HISTORY OF PRESENT ILLNESS: Billie Phillips is a 37-year-old female patient, active smoker, lives in [facility]. Her daughter, Marietta, has worked in our [employer], I have known her for many years. Her daughter is at her bedside. Apparently, Dr. Rodriguez amputated her left great toe more than 2 years ago. I saw her in consultation regarding her right toe in August and at that time, she had an ulcer and the patient evaluation in the past. She has a history of morbid obesity, metabolic syndrome, diabetes, hypertension, tobacco abuse, bipolar disorder, seizure disorder, and respiratory failure, currently admitted with pneumonia. I have been asked to see her regarding this toe. She has a white count of 13 and hemoglobin of 10. Basic metabolic profile unremarkable with normal renal function. On 06/02/2018, she underwent x-ray of her left foot noting amputation of the left great toe with erosive changes and demineralization suggested for osteomyelitis. She on the same day underwent on 06/02/2018, x-ray of the right foot that was unremarkable. She underwent 06/03/2018, MRI revealing changes consistent with osteomyelitis of the left great toe amputation stump. The right foot was not evaluated. On physical exam, she has open wound of her left great toe. The left great toe amputation stump is very edematous and hyperpigmented indicating chronic infection and inflammation. She has exposed phalanx with an open wound of left great toe. On the right toe medially, she has an ulceration to the phalanx. There are chronic inflammatory changes and dry gangrene surrounding. She has palpable pedal pulses bilaterally and no evidence of macrovascular disease. I talked to the patient and her daughter and after conversation, decision is made to undergo bilateral foot surgery with amputation of left great toe and metatarsal amputation of the right great toe proximally, possible through the metatarsal pending operative findings. She understands risks, benefits, and consents. I have encouraged tobacco cessation. ALLERGIES: NONE. TOBACCO, ONE PACK A DAY. ALCOHOL, NONE. MEDICATIONS: 1. Protonix daily. 2. Ventolin HFA. 3. Seroquel 150 mg a day. 4. Tylenol No. 3 as needed. 5. Phenergan as needed. 6. Saphris one tablet b.i.d. 7. Phenergan as needed. 8. Zofran as needed. 9. Gabapentin t.i.d. 10. Paroxetine 40 mg a day. 11. Atorvastatin 40 mg a day. 12. Levothyroxine 150 mcg a day. PAST SURGICAL HISTORY: Cholecystectomy, thyroidectomy for thyroid cancer, partial amputation of left great toe by Podiatry. PAST MEDICAL HISTORY: Medical problems as listed above. PHYSICAL EXAMINATION: VITAL SIGNS: Height 5 feet 8 inches, weight 213 pounds. Temperature 99 degrees, blood pressure 148/91, . HEAD, EYES, EARS, NOSE, AND THROAT: Unremarkable. LUNGS: Clear to auscultation. CARDIAC: Regular rate and rhythm without murmur or gallop. ABDOMEN: Soft and nontender. EXTREMITIES: Palpable femoral, popliteal, pedal pulses bilaterally. Left great toe, markedly edematous with a partially amputated stump through the mid to proximal phalanx. There is open wound with exposed phalanx. There is cellulitis. On the right foot, there are chronic inflammatory hyperpigmentation changes about the mid great toe. This is circumferential medially. There is no open wound communicated with the phalanx. ASSESSMENT AND PLAN: 1. Open wounds, both great toes. While the MRI does not demonstrate osteomyelitis of the right great toe, the stump of the left toe does demonstrate osteomyelitis and both bones are exposed. We would recommend amputation of both toes. She understands risks and benefits and consents. We will plan that tomorrow. 2. Other medical problems as noted above. Job ID: [id number]
[2018-06-04] MEDS: Acetaminophen 325 MG TAB PO PRN (20:59)
[2018-06-04] MEDS: OXcarbazepine 300 MG TAB PO SCH (21:00)
[2018-06-04] MEDS: Atorvastatin Calcium 40 MG TAB PO SCH (21:00)
[2018-06-05] MEDS: HYDROcodone/Acetaminophen 5/325 mg Tablet PO PRN (00:38)
[2018-06-05 05:37] LABS: Hemoglobin 9.8 g/dL (12.0-16.0); Mean Corpuscular HGB CONC 32.8 g/dL (32.0-36.0); Mean Corpuscular Hemoglobin 31.4 pg (27.0-31.0); Mean Corpuscular Volume 95.9 fL (78.0-98.0); Mean Platelet Volume 10.1 fL (7.4-10.4); Platelet Count 173 thou/uL (130-400); RBC Distribution Width 13.2 % (11.5-14.5); Red Blood Cell (RBC) Count 3.12 mill/uL (4.20-5.40); White Blood Cell (WBC) Count 17.6 thou/uL (4.8-10.8)
[2018-06-05] MEDS: HumaLOG 300 UNITS/3 ML VIAL SC PRN ×2 (05:43→16:44)
[2018-06-05] MEDS: Levothyroxine 150 MCG TAB PO SCH (05:45)
[2018-06-05 05:59] LABS: Anion Gap 12 mmol/L (10-20); BUN (Urea Nitrogen) 12 mg/dL (7.0-18.7); Calc. Creatinine Clearance 134 mL/min (70-130); Calcium 8.5 mg/dL (7.8-10.44); Carbon Dioxide 31 mmol/L (22-29); Chloride 97 mmol/L (98-107); Estimated GFR-MDRD 72; Glucose 169 mg/dL (70-105); Potassium 3.1 mmol/L (3.5-5.1); Sodium 137 mmol/L (136-145)
[2018-06-05] MEDS: Mometasone/Formoterol 120 PUFF INHALER INH SCH ×2 (08:19→18:47)
--- NOTE | 2018-06-05 08:57 | PRG ---
DATE OF SERVICE: 06/05/2018 SUBJECTIVE: This morning, she is awake, alert, and responsive. She is going for amputation of a toe. There is also osteomyelitis in the right great toe. Pulmonary soto, she is better. She is less short of breath. OBJECTIVE: VITAL SIGNS: Saturations are 98% on supplemental oxygen, blood pressure 160/90, respiratory rate 20, pulse 80. CHEST: Decreased breath sounds. No wheezing. CARDIAC: Normal S1, S2. No gallops. ABDOMEN: No masses. LABORATORY DATA: X-ray yesterday to my surprise showed worsening bilateral pulmonary edema. I had an echo ordered. Results still pending. She was given Lasix. Her BNP was mildly elevated. Otherwise, chest examination . IMPRESSION: Extensive bilateral pulmonary infiltrates, atypical pneumonia versus diastolic dysfunction, gangrenous toe, osteomyelitis, asthma, COPD. PLAN: Continue antibiotics, neb treatments, steroids. Await results of the echo. Job ID: [id number]
[2018-06-05] MEDS ORDERED: Ketamine 50 MG/ML (10ML VIAL) ONE (10:13)
[2018-06-05] MEDS ORDERED: Fentanyl 100 MCG/2 ML VIAL ONE (10:13)
[2018-06-05] MEDS ORDERED: Midazolam HCl 2 mg/2 ml Vial ONE (10:13)
[2018-06-05] MEDS ORDERED: Bacitracin Zinc Ointment 30 gm TUBE ONE (10:49)
[2018-06-05] MEDS ORDERED: Promethazine HCl 25 MG/ML VIAL IM PRN (10:56)
[2018-06-05] MEDS ORDERED: Ondansetron HCl/PF 4 MG/2 ML Vial IVP PRN (10:56)
[2018-06-05] MEDS ORDERED: Promethazine HCl 25 MG/ML VIAL SLOW IVP PRN (10:56)
[2018-06-05] MEDS ORDERED: Acetaminophen 500 MG TAB PO PRN (11:27)
--- NOTE | 2018-06-05 12:44 | OP ---
DATE OF PROCEDURE: 06/05/2018 PREOPERATIVE DIAGNOSES: Bilateral pneumonia; diabetes; bipolar illness; tobacco abuse; palpable pedal pulses; diabetic ulcerations, both great toes with prior partial amputation of left great toe with wound breakdown and osteomyelitis and exposed phalanx; ulceration, right great toe, into the phalanx; MRI evidence of osteomyelitis, left great toe amputation. ANESTHESIA: MAC regional. PROCEDURES PERFORMED: Amputation of right and left great toes of the proximal phalanx with primary closure of the right and wound VAC application of the left. Note, good blood supply, palpable pedal pulses. DESCRIPTION OF PROCEDURE: The patient was taken to the operating room where under MAC anesthesia and then ankle blocks bilaterally, both lower extremities prepared with ChloraPrep and draped in routine fashion. Incision was made on the right foot for amputation of the right great toe through the proximal phalanx using a fishmouth type incision, preserving skin dorsally as possible as the posterior skin was ulcerated and thickened, inflamed, hyperpigmented with a chronic ulceration into the mid phalanx and amputation bag carried down to the proximal phalanx, divided with a bone cutter and resecting it proximally with a rongeur. It was irrigated and good hemostasis obtained with cautery. There was good bleeding. Subcutaneous tissue was approximated with 4-0 Monocryl, skin with 4-0 Prolene. Sterile dressings applied. Attention was then turned to the left foot, where amputation of the partially amputated left great toe performed preserving skin as possible for a fishmouth type incision, resecting the diseased portion of the toe and exposed bone and resecting more proximally to the proximal phalanx with a bone cutter, resecting it proximally with a rongeur, smoothened it. The wound irrigated, hemostasis gained with the cautery. There was adequate skin for secondary closure and a wound VAC applied by the wound care team. The patient tolerated procedure well. Job ID: [id number]
[2018-06-05] MEDS: predniSONE 20 MG TAB PO SCH (12:50)
[2018-06-05] MEDS: PARoxetine 20 MG TAB PO SCH (12:50)
[2018-06-05] MEDS: Famotidine 20 MG TAB PO SCH ×2 (12:50→20:10)
[2018-06-05] MEDS: Sodium Chloride 0.9% 1,000 ML IV SCH ×2 (12:52→20:12)
[2018-06-05] MEDS: guaiFENesin/DM ER PO SCH ×2 (12:53→20:28)
[2018-06-05] MEDS: Gabapentin 400 MG CAP PO SCH ×3 (12:53→20:09)
[2018-06-05] MEDS: Insulin Glargine 15 UNITS in Pre-Filled Syringe SC SCH (12:56)
[2018-06-05] MEDS ORDERED: Cefepime 2 GM in Sodium Chloride 0.9% 100 ML IVPB SCH (13:00)
[2018-06-05] MEDS: traMADol HCl 50 MG TAB PO PRN ×2 (13:04→20:17)
[2018-06-05] MEDS: Enoxaparin Sodium 40 MG/0.4 ML SYRINGE SC SCH (13:08)
[2018-06-05] MEDS ORDERED: Ropivacaine 0.5% HCl/PF (150 MG/30 ML VIAL) ONE (15:29)
[2018-06-05] MEDS: HYDROcodone/Acetaminophen 10/325 mg Tablet PO PRN ×2 (18:20→23:33)
[2018-06-05] MEDS: Atorvastatin Calcium 40 MG TAB PO SCH (20:09)
[2018-06-05] MEDS: OXcarbazepine 300 MG TAB PO SCH (20:10)
[2018-06-05] MEDS ORDERED: Insulin Glargine 15 UNITS in Pre-Filled Syringe 1 EACH SC SCH (21:00)
[2018-06-06] MEDS: Cefepime 2 GM in Sodium Chloride 0.9% 100 ML IVPB SCH ×2 (04:18→09:27)
[2018-06-06 04:46] LABS: Hemoglobin 9.1 g/dL (12.0-16.0); Mean Corpuscular HGB CONC 32.6 g/dL (32.0-36.0); Mean Corpuscular Hemoglobin 30.7 pg (27.0-31.0); Mean Corpuscular Volume 94.3 fL (78.0-98.0); Mean Platelet Volume 10.2 fL (7.4-10.4); Platelet Count 191 thou/uL (130-400); RBC Distribution Width 13.2 % (11.5-14.5); Red Blood Cell (RBC) Count 2.95 mill/uL (4.20-5.40); White Blood Cell (WBC) Count 15.1 thou/uL (4.8-10.8)
[2018-06-06 05:06] LABS: Anion Gap 11 mmol/L (10-20); BUN (Urea Nitrogen) 14 mg/dL (7.0-18.7); Calc. Creatinine Clearance 150 mL/min (70-130); Calcium 8.6 mg/dL (7.8-10.44); Carbon Dioxide 30 mmol/L (22-29); Chloride 98 mmol/L (98-107); Estimated GFR-MDRD 81; Glucose 209 mg/dL (70-105); Potassium 3.1 mmol/L (3.5-5.1); Sodium 136 mmol/L (136-145)
[2018-06-06] MEDS: traMADol HCl 50 MG TAB PO PRN ×2 (05:53→22:04)
[2018-06-06] MEDS: Levothyroxine 150 MCG TAB PO SCH (05:54)
[2018-06-06] MEDS: HumaLOG 300 UNITS/3 ML VIAL SC PRN ×3 (05:54→16:18)
[2018-06-06] MEDS: Mometasone/Formoterol 120 PUFF INHALER INH SCH ×2 (07:07→19:11)
[2018-06-06] MEDS: Gabapentin 400 MG CAP PO SCH ×3 (09:24→20:19)
[2018-06-06] MEDS: PARoxetine 20 MG TAB PO SCH (09:25)
[2018-06-06] MEDS: HYDROcodone/Acetaminophen 10/325 mg Tablet PO PRN ×3 (09:25→20:18)
[2018-06-06] MEDS: predniSONE 20 MG TAB PO SCH (09:25)
[2018-06-06] MEDS: Famotidine 20 MG TAB PO SCH ×2 (09:25→20:19)
[2018-06-06] MEDS: Enoxaparin Sodium 40 MG/0.4 ML SYRINGE SC SCH (09:26)
[2018-06-06] MEDS: Insulin Glargine 15 UNITS in Pre-Filled Syringe SC SCH (09:26)
[2018-06-06] MEDS: Polyethylene Glycol 3350 17 GM Packet PO SCH (09:27)
[2018-06-06] MEDS: guaiFENesin/DM ER PO SCH ×2 (09:36→20:22)
[2018-06-06] MEDS: Potassium Chloride 20 MEQ TAB PO SCH ×2 (12:16→16:19)
--- NOTE | 2018-06-06 14:32 | PRG ---
DATE OF SERVICE: 06/06/2018 SERVICE: Pulmonary Medicine. INTERVAL HISTORY: The patient is doing outstanding from respiratory standpoint. Her saturations are 99% on 4 L nasal cannula. Denies any current chest pain, fevers, or chills. There are no events overnight. She had an echocardiogram this morning, which is currently pending. PHYSICAL EXAMINATION: VITAL SIGNS: Afebrile with a T-max of 100.6 last on June 04. Pulse 85, blood pressure 159/99, respirations 20, and saturation 99% on 4 L nasal cannula. GENERAL: The patient is awake and alert, in no apparent distress. LUNGS: Rhonchi are present with minimal expiratory wheezing. No prolonged expiratory phase or crackles are appreciated. HEART: Normal rate, regular. ABDOMEN: Soft, nontender, and nondistended. Bowel sounds are positive. MUSCULOSKELETAL: No cyanosis or clubbing. No pitting in bilateral lower extremities. Wound VAC is in place. GENITOURINARY: No Braga. NEUROLOGIC: Grossly nonfocal. LABORATORY DATA: Potassium 3.1. Basic metabolic profile and magnesium are otherwise unremarkable. WBC 15.1, hemoglobin 9.1, and platelets 191,000. E coli is growing in the urine. This is resistant to fluoroquinolones and 2nd generation cephalosporins. Coag-negative staph is growing in 1/2 blood cultures. ASSESSMENT: 1. Severe sepsis, resolved. 2. Osteomyelitis, status post amputation. 3. Community-acquired pneumonia, status post full course of antibiotic. 4. Urinary tract infection secondary to Escherichia coli. 5. Chronic obstructive pulmonary disease. DISCUSSION AND PLAN: We will continue her antibiotics and nebulized medications. IV fluids will be interrupted as the patient is tolerating p.o. Pulmonary/Critical Care will continue to follow along. Assuming her echo looks good, I think it is perfectly reasonable for her to transition to either the medical floor or telemetry unit. Pulmonary will continue to follow. Job ID: [id number]
--- NOTE | 2018-06-06 16:47 | PRG ---
DATE OF SERVICE: 06/06/2018 SUBJECTIVE: The patient is seen and examined at the bedside. She complains about cough, which becomes productive now with some brownish yellowish phlegm. She is still short of breath. Her appetite is fair. OBJECTIVE: VITAL SIGNS: Blood pressure is 159/99, pulse is 78, respiratory rate is 16, O2 saturation is 99% on 2 L by nasal cannula. Her temperature is 98.3. Her maximal temperature is 99.0 for the last 24 hours. HEENT: Head is atraumatic and normocephalic. Eyes are PERRLA. Sclerae are nonicteric. Oral mucosa is moist. NECK: Supple. LUNGS: Bilateral rales and wheezes present in all areas on both sides. HEART: S1 and S2 normal. No S3. No S4. ABDOMEN: Soft, obese, and nontender. Bowel sounds are present. No organomegaly. EXTREMITIES: No clubbing, cyanosis, or edema in the areas above the dressing. Dressings on her both feet are dressed. NEUROLOGIC: She is alert and oriented x4. There is no any motor deficit. LABORATORY DATA: Labs showed white count of 15.1, hemoglobin 9.1, hematocrit 27.8, and platelet count is 191. Sodium of 136, potassium 3.1, chloride 98, CO2 of 30, BUN 14, creatinine 0.8, glycemia is ranging from 205 to 223 and 301. Microbiology, urine culture is growing E coli, which is sensitive to cefepime, ceftazidime, ceftriaxone, and tobramycin. Blood culture 1/2 coagulase-negative Staphylococcus, which is contamination most likely. IMPRESSION: 1. Severe sepsis, resolved. 2. Osteomyelitis, status post amputation. 3. Urinary tract infection with Escherichia coli. 4. Chronic obstructive pulmonary disease. 5. Community-acquired pneumonia. PLAN: Plan is to increase her long-acting insulin to 20 units twice a day along with her sliding scale with insulin short-acting. Continue her DuoNeb. Continue her IV cefepime and she is switched to prednisone orally at this point and we will continue pain management with opioids. Job ID: [id number]
[2018-06-06] MEDS: Sodium Chloride 0.9% 1,000 ML IV SCH (18:29)
[2018-06-06] MEDS: Atorvastatin Calcium 40 MG TAB PO SCH (20:18)
[2018-06-06] MEDS: OXcarbazepine 300 MG TAB PO SCH (20:20)
[2018-06-06] MEDS: Insulin Glargine 20 UNITS in Pre-Filled Syringe 1 EACH SC SCH (20:23)
[2018-06-07] MEDS: Cefepime 2 GM in Sodium Chloride 0.9% 100 ML IVPB SCH ×2 (04:00→17:10)
[2018-06-07] MEDS: HYDROcodone/Acetaminophen 10/325 mg Tablet PO PRN ×2 (04:20→13:57)
[2018-06-07] MEDS: traMADol HCl 50 MG TAB PO PRN ×2 (04:21→20:57)
[2018-06-07] MEDS: Levothyroxine 150 MCG TAB PO SCH (04:22)
[2018-06-07 05:17] LABS: Hemoglobin 9.4 g/dL (12.0-16.0); Mean Corpuscular HGB CONC 32.6 g/dL (32.0-36.0); Mean Corpuscular Hemoglobin 31.4 pg (27.0-31.0); Mean Corpuscular Volume 96.2 fL (78.0-98.0); Mean Platelet Volume 9.9 fL (7.4-10.4); Platelet Count 213 thou/uL (130-400); RBC Distribution Width 13.3 % (11.5-14.5); Red Blood Cell (RBC) Count 2.99 mill/uL (4.20-5.40); White Blood Cell (WBC) Count 13.3 thou/uL (4.8-10.8)
[2018-06-07 05:49] LABS: Anion Gap 12 mmol/L (10-20); BUN (Urea Nitrogen) 16 mg/dL (7.0-18.7); Calc. Creatinine Clearance 152 mL/min (70-130); Carbon Dioxide 30 mmol/L (22-29); Chloride 97 mmol/L (98-107); Estimated GFR-MDRD 78; Glucose 228 mg/dL (70-105); Magnesium 2.3 mg/dL (1.6-2.6); Potassium 3.4 mmol/L (3.5-5.1); Sodium 136 mmol/L (136-145)
[2018-06-07] MEDS: Mometasone/Formoterol 120 PUFF INHALER INH SCH ×2 (06:08→18:25)
[2018-06-07] MEDS: Enoxaparin Sodium 40 MG/0.4 ML SYRINGE SC SCH (08:47)
[2018-06-07] MEDS: Gabapentin 400 MG CAP PO SCH ×3 (08:47→20:57)
[2018-06-07] MEDS: predniSONE 20 MG TAB PO SCH (08:47)
[2018-06-07] MEDS: Famotidine 20 MG TAB PO SCH ×2 (08:47→20:56)
[2018-06-07] MEDS: guaiFENesin/DM ER PO SCH ×2 (08:48→20:52)
[2018-06-07] MEDS: PARoxetine 20 MG TAB PO SCH (08:48)
[2018-06-07] MEDS: Polyethylene Glycol 3350 17 GM Packet PO SCH (08:48)
[2018-06-07] MEDS: Insulin Glargine 20 UNITS in Pre-Filled Syringe 1 EACH SC SCH ×2 (08:49→20:51)
[2018-06-07] MEDS: HumaLOG 300 UNITS/3 ML VIAL SC PRN ×3 (11:38→23:00)
[2018-06-07] MEDS ORDERED: cloNIDine 0.1 MG TAB PO PRN (13:04)
--- NOTE | 2018-06-07 13:07 | PDOC.PN ---
- Subjective Encounter Start Date: 06/07/18 Encounter Start Time: 13:05 Ms. Phillips was seen today in follow-up of diabetic foot infection. She notes some pain in both fet, but this is relieved with mdeication for pain. - Objective Resuscitation Status - Order Detail: 06/02/18 00:18 Resuscitation Status Routine Resuscitation Status: FULL: Full Resuscitation MAR Reviewed: Yes Vital Signs & Weight: Vital Signs (12 hours) Temp Pulse Resp BP BP BP Pulse Ox 06/07/18 11:44 97.8 F 80 14 185/84 H 98 06/07/18 09:39 85 18 97 06/07/18 08:00 96 06/07/18 07:49 98.1 F 80 14 168/92 H 96 06/07/18 06:08 83 18 97 06/07/18 06:03 83 18 97 06/07/18 03:53 98.1 F 84 14 136/67 92 L 06/07/18 01:57 79 20 Weight Admit Weight 218 lb 14.4 oz Weight 226 lb Most Recent Monitor Data Heart Rate from ECG 88 NIBP 149/83 NIBP BP-Mean 105 Respiration from ECG 29 SpO2 95 I&O: 06/06/18 06/07/18 06/08/18 06:59 06:59 06:59 Intake Total 3200 350 Output Total 1000 800 Balance 2200 -450 Result Diagrams: 06/07/18 04:41 06/07/18 04:41 Additional Labs: Accuchecks 06/07/18 06/07/18 06/06/18 10:53 05:40 20:23 POC Glucose 262 H 260 H 268 H 06/06/18 16:04 POC Glucose 274 H Phys Exam - Physical Examination HEENT: PERRLA Respiratory: no wheezing, no rales, no rhonchi, clear to auscultation bilateral Cardiovascular: RRR, no significant murmur, no rub Gastrointestinal: soft, non-tender, no distention, positive bowel sounds Musculoskeletal: no edema, pulses present + amputation of both 1st toes, wound vac in place palpable D.P and P.T bilaterally Deviation from normal: venous stasis changes bilaterally Dx/Plan (1) Diabetic foot infection Code(s): E11.628 - TYPE 2 DIABETES MELLITUS WITH OTHER SKIN COMPLICATIONS; L08.9 - LOCAL INFECTION OF THE SKIN AND SUBCUTANEOUS TISSUE, UNSP Status: Acute (2) Toe osteomyelitis, left Code(s): M86.9 - OSTEOMYELITIS, UNSPECIFIED Status: Acute (3) Bipolar disorder Code(s): F31.9 - BIPOLAR DISORDER, UNSPECIFIED Status: Chronic Qualifiers: Active/Remission status: remission status unspecified Qualified Code(s): F31.9 - Bipolar disorder, unspecified Comment: Stbale, no Mnaia/ Depression noted. (4) DM type 2 (diabetes mellitus, type 2) Status: Chronic Qualifiers: Diabetes mellitus alf insulin use: with manufacturing mechanic use Diabetes mellitus complication status: with kidney complications Chronic kidney disease stage: unspecified stage Comment: Continue SSI. Stbale well controlled. (5) Hypothyroidism Code(s): E03.9 - HYPOTHYROIDISM, UNSPECIFIED Status: Chronic (6) UTI (urinary tract infection) Status: Acute (7) Pneumonia Code(s): J18.9 - PNEUMONIA, UNSPECIFIED ORGANISM Status: Acute - Plan * Osteomyelitis of the first toe left foot, and diabetic foot infection- continue local wound care * Continue Cefepime. * Pneumonia- continue Cefepime * UTI- urine culture is growing E.Coli which is sensitive to Cephalosporin's- continue as above * Discussed smoking cessation * Hypothyroidism- clinically stable * DM- blood glucose is a bit elevated- will monitor the trend, and titrate insulin as needed
[2018-06-07] MEDS ORDERED: Potassium Chloride 20 MEQ TAB PO SCH (15:00)
--- NOTE | 2018-06-07 15:16 | PRG ---
DATE OF SERVICE: 06/07/2018 SERVICE: Pulmonary Medicine. INTERVAL HISTORY: The patient is doing okay from respiratory standpoint. Breathing comfortably. No complaints of chest pain, fevers, chills, nausea, vomiting, or diarrhea. Otherwise, she is returning to her usual state of health. PHYSICAL EXAMINATION: VITAL SIGNS: Afebrile, pulse 80, blood pressure 185/84, respirations 14, and O2 saturation 98% on 2L nasal cannula. GENERAL: The patient is awake and alert, in no apparent distress. LUNGS: Decent air entry without any prolonged expiratory phase. No crackles or wheezing or rhonchi are appreciated. HEART: Normal rate and regular. ABDOMEN: Soft, nontender, and nondistended. Bowel sounds are positive. MUSCULOSKELETAL: No cyanosis or clubbing. There is trace pitting in bilateral lower extremities. She has a surgically absent toe. Wound VAC in place. NEUROLOGIC: Grossly nonfocal. LABORATORY DATA: WBC 13.3, hemoglobin 9.4, and platelets 213,000 and improving. Creatinine 0.82. Basic metabolic profile is otherwise unremarkable. Potassium 3.4. Magnesium 2.3. IMAGING STUDIES: Echocardiogram shows diastolic dysfunction with preserved ejection fraction. ASSESSMENT: 1. Severe sepsis, resolving. 2. Osteomyelitis, status post amputation. 3. Community-acquired pneumonia, status post full course of antibiotic. 4. Urinary tract infection secondary to Escherichia coli. 5. Chronic obstructive pulmonary disease without exacerbation. 6. Chronic diastolic heart failure. DISCUSSION AND PLAN: I will continue our supportive care including antibiotics. From purely respiratory perspective, the patient is stable for transition out of the hospital. Pulmonary will continue to follow while the patient remains in-house. Job ID: [id number]
[2018-06-07] MEDS: OXcarbazepine 300 MG TAB PO SCH (20:53)
[2018-06-07] MEDS: Atorvastatin Calcium 40 MG TAB PO SCH (20:56)
[2018-06-07] MEDS ORDERED: Insulin Regular 300 UNITS/3 ML VIAL SC PRN (22:32)
[2018-06-08] MEDS: Cefepime 2 GM in Sodium Chloride 0.9% 100 ML IVPB SCH ×2 (04:41→15:15)
[2018-06-08] MEDS: Levothyroxine 150 MCG TAB PO SCH (04:41)
[2018-06-08] MEDS: traMADol HCl 50 MG TAB PO PRN ×2 (04:48→21:24)
[2018-06-08] MEDS ORDERED: HumaLOG 300 UNITS/3 ML VIAL SC PRN (07:43)
[2018-06-08] MEDS ORDERED: Dextrose 50% Abboject 50 ML SYRINGE SLOW IVP PRN (07:43)
[2018-06-08] MEDS ORDERED: Dextrose 5% in Water 1,000 ML IV PRN (07:43)
[2018-06-08] MEDS: Mometasone/Formoterol 120 PUFF INHALER INH SCH ×2 (08:06→18:47)
[2018-06-08] MEDS: predniSONE 20 MG TAB PO SCH (08:47)
[2018-06-08] MEDS: Gabapentin 400 MG CAP PO SCH ×3 (08:47→21:23)
[2018-06-08] MEDS: PARoxetine 20 MG TAB PO SCH (08:47)
[2018-06-08] MEDS: guaiFENesin/DM ER PO SCH ×2 (08:48→21:23)
[2018-06-08] MEDS: Enoxaparin Sodium 40 MG/0.4 ML SYRINGE SC SCH (08:48)
[2018-06-08] MEDS: Polyethylene Glycol 3350 17 GM Packet PO SCH (08:48)
[2018-06-08] MEDS: Famotidine 20 MG TAB PO SCH ×2 (08:48→21:26)
--- NOTE | 2018-06-08 08:52 | PRG ---
DATE OF SERVICE: SUBJECTIVE: The patient is seen and examined at the bedside. She just came back from OR. She had her great toes amputated by Dr. Edwards. She ate her meals and she does not have much complaints to offer. OBJECTIVE: VITAL SIGNS: Blood pressure is 170/100, respiratory rate is 24, heart rate is 99, O2 saturation is 97% by nasal cannula. HEENT: Her head is atraumatic and normocephalic. Eyes are PERRLA. Sclerae are nonicteric. Conjunctivae are pinkish. Oral mucosa is moist. NECK: Supple. LUNGS: Bilateral rales and crackles with some wheezes present in both lungs. HEART: S1, S2 normal. No S3. No S4. ABDOMEN: Soft, obese, nontender. Bowel sounds are present. No organomegaly. EXTREMITIES: Both feet wrapped in the dressings. NEUROLOGIC: She is alert and oriented x4. There are no any motor deficits. She follows my commands. LABORATORY DATA: Labs showed white count of 17.6, hemoglobin 9.8, hematocrit 29.9, platelet count is 173,000. Sodium of 137, potassium 3.1, chloride 97, CO2 of 31, BUN 12, creatinine 0.88. Glycemia is ranging from 190 to 276. Calcium 8.5. Microbiology; urine culture positive for Escherichia coli. Blood cultures 1/2 positive for Staphylococcus, noncoagulase are negative which is most likely a contaminant. IMPRESSION: 1. Pneumonia, most likely atypical. 2. Acute respiratory failure with hypoxemia and hypercapnia. 3. Left toe osteomyelitis. 4. Acute on chronic kidney failure. 5. Bipolar disorder. 6. Diabetes mellitus type 2. 7. Diabetic toe ulcer. 8. Hypothyroidism. 9. Obesity. Since the patient just had procedure done by Dr. Edwards who amputated the right and left great toes of the proximal phalanx with primary closure of the right and wound VAC application of the left. The patient is on insulin pump at home. We are going to start her on 15 units a day of Lantus subcutaneously tonight and 15 units tomorrow morning and that should give us some response along with her sliding scale insulin coverage. Cardiogram is still pending. She has a history of COPD and asthma and this is managed by process engineering manager, Dr. Benson. Job ID: [id number]
--- NOTE | 2018-06-08 10:04 | PRG ---
DATE OF SERVICE: 06/08/2018 SUBJECTIVE: This morning, she is better, less short of breath. OBJECTIVE: VITAL SIGNS: Sats are 96%_ on 2 L, respirations 18, pulse 81, temperature 98, blood pressure 172/80. CHEST: No wheezing or crackle. CARDIAC: Normal S1 and S2. ABDOMEN: Negative mass. IMPRESSION AND PLAN: 1. Abnormal chest x-ray. Fluid overload versus congestive heart failure. 2. Osteomyelitis, status post amputation. 3. Urinary tract infection. 4. Chronic obstructive pulmonary disease. 5. Diastolic dysfunction. Baseline chest x-ray is being ordered. Disposition as per primary care physician and Surgery. Job ID: [id number] MTDD
[2018-06-08] MEDS: Insulin Glargine 20 UNITS in Pre-Filled Syringe 1 EACH SC SCH (10:12)
[2018-06-08] MEDS: HumaLOG 300 UNITS/3 ML VIAL SC PRN ×2 (11:43→18:59)
--- NOTE | 2018-06-08 11:59 | RAD ---
PORTABLE CHEST: HISTORY: Shortness of breath. COMPARISON: 06/04/2018 study. FINDINGS: Heart size is enlarged. The alveolar opacities in both lung ayala show improvement as compared to t he prior exam. IMPRESSION: Cardiomegaly with improving patchy alveolar lung changes. POS: TPC
--- NOTE | 2018-06-08 12:02 | PDOC.PN ---
- Subjective Encounter Start Date: 06/08/18 Encounter Start Time: 12:00 Ms. Phillips was seen today in follow-up of diabetic foot infection and pneumonia. She does not have any complaints. She does not complain of pain in either foot. She says she is breathing better. - Objective Resuscitation Status - Order Detail: 06/02/18 00:18 Resuscitation Status Routine Resuscitation Status: FULL: Full Resuscitation MAR Reviewed: Yes Vital Signs & Weight: Vital Signs (12 hours) Temp Pulse Resp BP BP Pulse Ox 06/08/18 11:15 80 16 06/08/18 08:41 98.2 F 81 18 172/80 H 96 06/08/18 08:40 94 L 06/08/18 08:06 80 16 06/08/18 03:41 97.9 F 80 19 164/79 H 92 L 06/08/18 02:26 74 16 92 L Weight Admit Weight 218 lb 14.4 oz Weight 225 lb Most Recent Monitor Data Heart Rate from ECG 88 NIBP 149/83 NIBP BP-Mean 105 Respiration from ECG 29 SpO2 95 I&O: 06/07/18 06/08/18 06/09/18 06:59 06:59 06:59 Intake Total 350 1365 Output Total 800 200 Balance -450 1165 Result Diagrams: 06/07/18 04:41 06/07/18 04:41 Additional Labs: Accuchecks 06/08/18 06/08/18 06/07/18 10:52 05:35 20:34 POC Glucose 258 H 227 H 359 H 06/07/18 16:59 POC Glucose 310 H Phys Exam - Physical Examination HEENT: PERRLA Respiratory: wheezing present + bilateral wheezing and rhonchi- slightly improved from yesterday Cardiovascular: RRR, no significant murmur, no rub Gastrointestinal: soft, non-tender, no distention, positive bowel sounds Musculoskeletal: no edema, pulses present Dx/Plan (1) Diabetic foot infection Code(s): E11.628 - TYPE 2 DIABETES MELLITUS WITH OTHER SKIN COMPLICATIONS; L08.9 - LOCAL INFECTION OF THE SKIN AND SUBCUTANEOUS TISSUE, UNSP Status: Acute (2) Toe osteomyelitis, left Code(s): M86.9 - OSTEOMYELITIS, UNSPECIFIED Status: Acute (3) Bipolar disorder Code(s): F31.9 - BIPOLAR DISORDER, UNSPECIFIED Status: Chronic Qualifiers: Active/Remission status: remission status unspecified Qualified Code(s): F31.9 - Bipolar disorder, unspecified Comment: Kia, no Mnaia/ Depression noted. 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 Stbale well controlled. (5) Hypothyroidism Code(s): E03.9 - HYPOTHYROIDISM, UNSPECIFIED Status: Chronic (6) UTI (urinary tract infection) Status: Acute (7) Pneumonia Code(s): J18.9 - PNEUMONIA, UNSPECIFIED ORGANISM Status: Acute - Plan * Diabetic Foot infection- continue Cefepime- continue local wound care * Will consult ID to aid in antibiotic choice * If she is going to go home with a wound vac- will need to make outpatient arrangements * Pneumonia- improving symptomatically and radiographically * UTI- due to E. Coli- sensitive to Cephalosporins * DM- blood glucose is elevated- likely from Prednisone- will continue to titrate insulin. * Hypothyroidism- stable
[2018-06-08] MEDS: HYDROcodone/Acetaminophen 10/325 mg Tablet PO PRN (15:13)
[2018-06-08] MEDS ORDERED: hydrALAZINE 25 MG TAB PO PRN (16:34)
[2018-06-08] MEDS ORDERED: Insulin Glargine 30 UNITS in Pre-Filled Syringe 1 EACH SC SCH (21:00)
[2018-06-08] MEDS: OXcarbazepine 300 MG TAB PO SCH (21:18)
[2018-06-08] MEDS: Atorvastatin Calcium 40 MG TAB PO SCH (21:23)
[2018-06-09] MEDS: Levothyroxine 150 MCG TAB PO SCH (05:33)
[2018-06-09] MEDS: Cefepime 2 GM in Sodium Chloride 0.9% 100 ML IVPB SCH ×2 (05:33→15:44)
[2018-06-09] MEDS: traMADol HCl 50 MG TAB PO PRN (05:41)
[2018-06-09] MEDS: Mometasone/Formoterol 120 PUFF INHALER INH SCH ×2 (06:46→18:21)
[2018-06-09] MEDS: Gabapentin 400 MG CAP PO SCH ×2 (08:19→15:44)
[2018-06-09] MEDS: Enoxaparin Sodium 40 MG/0.4 ML SYRINGE SC SCH (08:20)
[2018-06-09] MEDS: guaiFENesin/DM ER PO SCH (08:20)
[2018-06-09] MEDS: Famotidine 20 MG TAB PO SCH ×2 (08:20→09:08)
[2018-06-09] MEDS: Polyethylene Glycol 3350 17 GM Packet PO SCH (08:20)
[2018-06-09] MEDS: PARoxetine 20 MG TAB PO SCH (08:20)
[2018-06-09] MEDS: predniSONE 20 MG TAB PO SCH (08:20)
[2018-06-09] MEDS ORDERED: Insulin Glargine 30 UNITS in Pre-Filled Syringe 1 EACH SC SCH (09:00)
[2018-06-09] MEDS ORDERED: Lisinopril 5 MG TAB PO SCH (09:00)
--- NOTE | 2018-06-09 09:52 | PRG ---
DATE OF SERVICE: SUBJECTIVE: Billie Phillips is a 37-year-old female, much improved x-ray. OBJECTIVE: VITAL SIGNS: Saturations are 95% on 1 L, respiratory rate 12, temperature 98, blood pressure 140/88. CHEST: No wheezing or crackles. CARDIAC: Normal S1, S2. No gallops. ABDOMEN: No masses. IMPRESSION: 1. Bilateral pneumonia, probably diastolic dysfunction, much improved. 2. Osteomyelitis, sepsis, Escherichia coli. PLAN: Pulmonary soto, disposition as per Surgery and Infectious Disease. No specific treatment pulmonary soto. Job ID: [id number]
--- NOTE | 2018-06-09 10:50 | PRG ---
DATE OF SERVICE: 06/09/2018 SUBJECTIVE: Ms. Phillips is doing well today. I viewed her wounds with wound care. The great toes look good. The wound on the right foot where the toe was amputated and closed looks good. The wound looks good. She can begin washing daily with soap and water and apply antibiotic ointment and Band-Aid. Left great toe wound is open, granulating, looks good healthy, great. There is no infection. No cellulitis. As far as the wounds go, I would treat her with oral antibiotics for 10 days and she can be discharged home at anytime with the outpatient wound VAC. She should wear postoperative shoe when out of bed. She can follow up with me in 2 weeks. The patient can be discharged home at anytime from my standpoint and be on oral antibiotics for 10 to 14 days. I will see her as needed this hospitalization. Please call if necessary. Job ID: [id number]
[2018-06-09 11:39] VITALS: BMI 32.8
--- NOTE | 2018-06-09 12:18 | PDOC.PN ---
- Subjective Encounter Start Date: 06/09/18 Encounter Start Time: 12:17 Ms. Phillips was seen today in follow-up of diabetic foot infection. She does not have any new complaints. - Objective Resuscitation Status - Order Detail: 06/02/18 00:18 Resuscitation Status Routine Resuscitation Status: FULL: Full Resuscitation MAR Reviewed: Yes Vital Signs & Weight: Vital Signs (12 hours) Temp Pulse Resp BP Pulse Ox 06/09/18 10:11 91 12 06/09/18 08:30 97.8 F 65 18 138/72 95 06/09/18 08:20 90 06/09/18 06:46 90 12 06/09/18 04:00 98.2 F 77 14 145/88 H 95 Weight Admit Weight 218 lb 14.4 oz Weight 216 lb 14.4 oz Most Recent Monitor Data Heart Rate from ECG 88 NIBP 149/83 NIBP BP-Mean 105 Respiration from ECG 29 SpO2 95 I&O: 06/08/18 06/09/18 06/10/18 06:59 06:59 06:59 Intake Total 1365 920 Output Total 200 1380 Balance 1165 -460 Result Diagrams: 06/07/18 04:41 06/07/18 04:41 Additional Labs: Accuchecks 06/09/18 06/08/18 06/08/18 05:53 20:44 18:36 POC Glucose 176 H 367 H 384 H Phys Exam - Physical Examination HEENT: PERRLA Respiratory: no wheezing, no rales, no rhonchi, clear to auscultation bilateral Cardiovascular: RRR, no significant murmur, no rub Gastrointestinal: soft, non-tender, no distention, positive bowel sounds Musculoskeletal: no edema Dx/Plan (1) Diabetic foot infection Code(s): E11.628 - TYPE 2 DIABETES MELLITUS WITH OTHER SKIN COMPLICATIONS; L08.9 - LOCAL INFECTION OF THE SKIN AND SUBCUTANEOUS TISSUE, UNSP Status: Acute (2) Toe osteomyelitis, left Code(s): M86.9 - OSTEOMYELITIS, UNSPECIFIED Status: Acute (3) Bipolar disorder Code(s): F31.9 - BIPOLAR DISORDER, UNSPECIFIED Status: Chronic Qualifiers: Active/Remission status: remission status unspecified Qualified Code(s): F31.9 - Bipolar disorder, unspecified Comment: Stbale, no Mnaia/ Depression noted. 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 Stbale well controlled. (5) Hypothyroidism Code(s): E03.9 - HYPOTHYROIDISM, UNSPECIFIED Status: Chronic (6) UTI (urinary tract infection) Status: Acute (7) Pneumonia Code(s): J18.9 - PNEUMONIA, UNSPECIFIED ORGANISM Status: Acute - Plan * Diabetic foot infection- will await ID recommendations regarding antibiotic choice * Wound vac is being arranged * DM- blood glucose is elevated- but she uses a insulin pump at home * Stable for discharge once all is arranged
[2018-06-09] MEDS: HumaLOG 300 UNITS/3 ML VIAL SC PRN (12:42)
[2018-06-09 17:18] VITALS: BP 144/81; TEMP 98.4
--- NOTE | 2018-06-10 00:01 | CON ---
DATE OF CONSULTATION: 06/09/2018 REASON FOR CONSULTATION: Osteomyelitis right and left first toes. HISTORY OF PRESENT ILLNESS: A 37-year-old with history of type 1 diabetes on insulin pump at home and chronic ulcers in the first toes of right and left feet, which have failed outpatient management. She has had amputations of the right and left first toes and the pathology is reviewed below. Currently, she is awake and alert. No headaches, visual symptoms, sore throat, odynophagia, or dysphagia. No cough, sputum production, chest pain, abdominal pain or diarrhea. No genitourinary symptoms. No other joint symptoms. PAST MEDICAL HISTORY: 1. Type 2 type 2 diabetes, but more like type 1, looks like in view of the insulin pump. 2. Asthma. 3. Thyroid cancer, we treated with I-131 ablation. 4. Bipolar disorder. 5. Hypertension. 6. Cholecystitis. 7. Cholecystectomy. ALLERGIES: NONE. FAMILY HISTORY: Diabetes. SOCIAL HISTORY: Current smoker. No other drug use. PHYSICAL EXAMINATION: VITAL SIGNS: Temperature max 100.6, she has been afebrile since. Other vital signs are normal. O2 saturation 95%. SKIN EXAM: Shows the ulcers at the tip of the toes, right and left side with surrounding callus formation and hyperpigmentation. No lymphadenopathy. HEENT: Ocular movements conjugate. Oral cavity normal. Numerous teeth in place with no significant abnormalities in teeth. NECK: Supple without jugular venous distention or carotid bruits. LUNGS: Symmetric. Clear breath sounds. HEART: S1 and S2, regular rate. ABDOMEN: Soft, not distended or tender. EXTREMITIES: No other joint abnormalities. Pulses are 1+ in dorsalis pedis and popliteals. Moves extremities equally with some little limitations. NEURO: Cognitive function appears to be intact. LABORATORY DATA: White cell count is low at 11.4, went up to 17 and now is 13.3, hemoglobin 9.4, platelets 213. Sodium 136, creatinine 0.82. Liver profile with an AST of 40, ALT 25, alkaline phosphatase 134, albumin 3.7. Urinalysis with 11-20 wbc;s. Microbiology: We have a urine culture with E coli. IMAGING: Chest x-ray showed cardiomegaly with some patchy alveolar changes. Pathology of the surgical amputation site with ischemic ulceration, gangrene, margins of skin and soft tissue viable. ASSESSMENT AND PLAN: Type 1 diabetes mellitus, on insulin pump at home with chronic ulcers in the right and left first toes status post first ray amputation, right and left foot. The right side was closed with stitches. The left side has a negative pressure dressing. Unfortunately, cultures were not submitted. therefore not be able to address the actual microbiology of the wounds. This increases the risk for recrudescence of inflammatory process and readmission in the future. We will recommend oral doxycycline plus Augmentin in view of the margin of clearance. She may need a vascular study down the road in view of the findings of gangrene in the amputation site of the surgical specimen. Job ID: [id number]
--- NOTE | 2018-06-10 08:50 | DIS ---
DATE OF ADMISSION: 06/01/2018 DATE OF DISCHARGE: 06/09/2018 PRIMARY CARE PHYSICIAN: Yefri Patel MD DISCHARGE DIAGNOSES: 1. Osteomyelitis of the first toe on the right foot. 2. Diabetic foot infection. 3. Acute on chronic respiratory failure secondary to pneumonia which is community acquired. 4. Asthma. 5. Acute on chronic kidney injury. 6. Diabetes mellitus type 2. 7. Urinary tract infection. 8. Hypothyroidism. DISCHARGE MEDICATIONS: Include; 1. Augmentin 875 mg twice a day for 10 days. 2. Doxycycline 100 mg twice daily for 10 days. 3. Prednisone 20 mg daily. 4. Seroquel 150 mg daily. 5. 40 mg daily. 6. Pantoprazole 80 mg daily. 7. Oxcarbazepine 2400 mg at bedtime. 8. Zofran 4 mg q.8 as needed for nausea. 9. Synthroid 150 mcg p.o. daily. 10. Gabapentin 800 mg t.i.d. 11. Atorvastatin 40 mg at bedtime. 12. Saphris one sublingual twice a day. 13. Ventolin inhaler 2 puffs q.6 as needed. 14. Tylenol No. 3 as needed. The patient had lab and x-ray. The patient had an MRI of the lower extremity demonstrating abnormal signal in the residual great toe of the proximal phalanx which is suspicious for osteomyelitis and some cellulitis findings of the dorsal foot. The patient had amputation of the right and left great toes and proximal phalanx with closure and wound VAC application to the left toe. The patient also had an echocardiogram in which the ejection fraction was estimated at 55% to 60%. There was some impaired relaxation with diastolic dysfunction. HOSPITAL COURSE: Ms. Phillips is a pleasant 37-year-old female who presented to the emergency room with complaints of shortness of breath. She was evaluated and found to have a community-acquired pneumonia and was started on IV antibiotics as well as DuoNeb due to some reactive airway disease as well. Due to the severity of her symptoms, Pulmonology was consulted. She is a heavy smoker and it is suspected that she may have some early COPD. She was counseled extensively on the need to quit smoking. She also was noted to have diabetic foot infections on both feet, primarily on the right where there was evidence of osteomyelitis by MRI. The patient, however, elected to have both toes amputated. A wound VAC was applied to the right. Once the wound was stabilized, she was able to be discharged home with a wound VAC, to have close outpatient followup with Dr. Edwards. She normally uses an insulin pump and she will be resuming the use of the insulin pump at discharge. Job ID: [id number]
== END 2018-06-09 20:48 | disposition home health service (06) | DRG 853 ==
LOC: ERS 19:16 → IMCU/EMU 23:08 → 2NO 06-06 22:51
PROVIDERS: ADMIT Internal Medicine; ATTEND Internal Medicine
PROC: 0Y6Q0Z1 Detachment at Left 1st Toe, High, Open Approach (ICD-10-PCS; principal; 2018-06-05)
PROC: 0Y6P0Z1 Detachment at Right 1st Toe, High, Open Approach (ICD-10-PCS; 2018-06-05)
DX: A41.9 Sepsis, unspecified organism (principal); J18.9 Pneumonia, unspecified organism; J96.01 Acute respiratory failure with hypoxia; J96.02 Acute respiratory failure with hypercapnia; N17.9 Acute kidney failure, unspecified; N39.0 Urinary tract infection, site not specified; J44.0 Chronic obstructive pulmonary disease with (acute) lower respiratory infection; I13.0 Hypertensive heart and chronic kidney disease with heart failure and stage 1 through stage 4 chronic kidney disease, or unspecified chronic kidney disease; I50.32 Chronic diastolic (congestive) heart failure; M86.8X7 Other osteomyelitis, ankle and foot; L97.526 Non-pressure chronic ulcer of other part of left foot with bone involvement without evidence of necrosis; L97.516 Non-pressure chronic ulcer of other part of right foot with bone involvement without evidence of necrosis; F17.210 Nicotine dependence, cigarettes, uncomplicated; E66.01 Morbid (severe) obesity due to excess calories; Z68.32 Body mass index [BMI] 32.0-32.9, adult; F31.9 Bipolar disorder, unspecified; G40.909 Epilepsy, unspecified, not intractable, without status epilepticus; R65.20 Severe sepsis without septic shock; B96.20 Unspecified Escherichia coli [E. coli] as the cause of diseases classified elsewhere; E11.69 Type 2 diabetes mellitus with other specified complication; E11.621 Type 2 diabetes mellitus with foot ulcer; E11.22 Type 2 diabetes mellitus with diabetic chronic kidney disease; E11.65 Type 2 diabetes mellitus with hyperglycemia; N18.2 Chronic kidney disease, stage 2 (mild); G25.81 Restless legs syndrome; E89.0 Postprocedural hypothyroidism; E78.5 Hyperlipidemia, unspecified; R53.81 Other malaise; Z79.899 Other long term (current) drug therapy; Z79.4 Long term (current) use of insulin; Z89.412 Acquired absence of left great toe; Z90.49 Acquired absence of other specified parts of digestive tract; Z98.890 Other specified postprocedural states; Z85.850 Personal history of malignant neoplasm of thyroid; Z83.3 Family history of diabetes mellitus
CPT/HCPCS: 36415; 36416; 71045; 80048; 80053; 81003; 81015; 81025; 82805; 83605; 83735; 83880; 85025; 85027; 87040; 87077; 87086; 87149; 87186; 88305; 88311; 93306; 94640; 96365; 96367; J0692; J1650; J1825; J1940; J2250; J2543; J3010; J3370; J3490; J7512; J7620; Q0162

== ENCOUNTER 2018-07-01 07:26 | Day surgery (SDC) | payer MEDICARE, MEDICAID ==
[2018-06-30 08:36] VITALS: BMI 32.3
[2018-07-01 07:49] LABS: BHCG - Serum Negative (NEGATIVE); Pregs Control Background? CLEAR/WHITE (CLR/WHITE); Pregs Control Bar Appear? YES (CONTROL BAR)
--- NOTE | 2018-07-01 10:10 | RAD ---
MYELOGRAM LUMBAR SPINE: DATE: 07/01/2018 HISTORY: 37-year-old female with lumbar degenerative disc disease, low back pain, and bilateral lumbar radicul opathy. Technique: Signed informed consent was obtained. Infrastructure Administrator imaging was performed. Patient was placed in a prone posi tion and the skin of the low back was prepped and draped in a standard sterile fashion. Topical anesthesia was achieved with buffered 1% lidocaine. 22-gauge spinal needle was then advanced uneventf ully into the thecal sac from a posterior para midline approach at the rightL1 tolevel. 9 mL of Isovue-M 200 was instilled under low pressure into the thecal sac, upon return of clear colorless CSF at the needle hub. Imaging was stored for documentation. Needle was removed. Patient tolerated the procedure well, without complication evident. Patient was then transferred to CT to undergo subsequent CT myelogram imaging. Reference separate exa m(s) for additional details. FINDINGS: Infrastructure Administrator views demonstrate 5 lumbar-type vertebrae. Left pedicle screws at L5 and S1. Broken, mildly dis placed left S1 pedicle screw, unchanged compared to plain radiograph of 05/26/2018. Moderate disc space narrowing at L1-2 with mild vacuum disc phenomenon, and endplate sclerosis with anterior osteop hytes. Moderate disc space narrowing at L5-S1 where there are metallic markers for graft. Sclerosis of endplates. Imaging reveals a needle overlying the lumbar spinal canal, with subsequent instillation of radiopaqu e contrast within the thecal sac. Fluoroscopy data:1.3minutes, 1012.6 uGy*m^2 IMPRESSION: 1. Technically successful myelogram. 2. Status post posterior lumbar interbody fusion at L5-S1, with unilateral left pedicle screws. 3. Broken hardware: Mildly displaced fracture of the left S1 pedicle screw. 4. Moderate degenerative disc disease at L2-3. 5. See separate report of subsequent CT lumbar myelogram.
--- NOTE | 2018-07-01 11:17 | CT ---
CT lumbar spine with contrast: (CT lumbar myelogram) DATE: 07/01/2018 HISTORY: 37-year-old female with low back pain, lumbar radiculopathy, and lumbar degenerative disc disease. FINDINGS: 5 lumbar-type vertebrae. Mild chronic anterior wedging of T12. Otherwise, vertebral body heights are maintained. No major scoliosis. T12-L1: Essentially normal L1-2: Conus medullaris terminates at L1. Mild disc space narrowing. Vacuum disc phenomenon. Diffuse d isc bulge effaces ventral aspect of thecal sac, causing mild central stenosis. Mild right neural foraminal stenosis. No high-grade neural foraminal stenosis. L2-3: Moderate disc space narrowing. Vacuum disc phenomenon. Endplate sclerosis. Moderate endplate ma rginal osteophytes. Diffuse disc bulge encroaches upon the neural foramina causing mild bilateral neural foraminal stenosis. The disc bulge encroaches upon the ventral aspect of the spinal canal (chuyita ng with minimal retrolisthesis of L2 on L3), causing mild central spinal canal stenosis. L3-4: Disc space maintained. Mild ligamentum flavum thickening. Mild facet DJD. Mild to moderate bila teral neural foraminal stenosis. Mild central spinal canal stenosis. L4-5: Disc space maintained. Mild disc bulge. Mild to moderate ligamentum flavum thickening. Mild padmini ateral facet DJD, right greater than left. Mild to moderate central spinal canal stenosis. Moderate bilateral neural foraminal stenosis. L5-S1: Moderate disc space narrowing. Endplate sclerosis. Multiple subchondral cysts on the left side . Interbody graft material in the left side of the disc space. Unilateral left L5 and S1 pedicle screws. Fracture of the proximal aspect of the left S1 screw. No signs of hardware loosening. The ped icle screws do not traverse the lateral recesses, spinal canal, or neural foramina. Left L5 inferior articular facetectomy. There is extensive soft tissue density material, interspersed with mu ltiple calcific or ossific fragments, in the left anterior and lateral epidural space, including the left lateral recess, effacing the left anterior aspect of the thecal sac, and completely surround ing the left S1 nerve root. This soft tissue density material also extends into the left neural foramen where it contacts or surrounding the exiting left L5 nerve root. There is mild bony left neur al foraminal stenosis, but the soft tissue density material completely effaces the neural foraminal fat. No significant right-sided neural foraminal stenosis. No central spinal canal stenosis. IMPRESSION: 1.) Status post left-sided posterior lumbar interbody fusion at L5-S1. 2) soft tissue density material throughout the left lateral recess and left neural foramen, surroundi ng the left S1 and L5 nerve roots. At least some of this represents postsurgical scar tissue. On CT, it is not possible to determine whether or not there is any recurrent or residual herniated disc material contributing to this soft tissue density. 3) fracture of left S1 pedicle screw. 4) degenerative disc disease at L1-2, L2-3, and L5-S1, moderate.
[2018-07-01] MEDS ORDERED: Iopamidol-M 200 41% 20 ML VIAL ONE (11:51)
== END 2018-07-01 10:05 | disposition home or self-care (01) ==
LOC: RAD 07:26
PROVIDERS: ATTEND Neurological Surgery
DX: M51.36 Other intervertebral disc degeneration, lumbar region (principal); I10 Essential (primary) hypertension; E03.9 Hypothyroidism, unspecified; E11.9 Type 2 diabetes mellitus without complications; E78.00 Pure hypercholesterolemia, unspecified; F32.9 Major depressive disorder, single episode, unspecified; F41.9 Anxiety disorder, unspecified; F17.210 Nicotine dependence, cigarettes, uncomplicated; G40.909 Epilepsy, unspecified, not intractable, without status epilepticus; J45.909 Unspecified asthma, uncomplicated; K21.9 Gastro-esophageal reflux disease without esophagitis; Z79.4 Long term (current) use of insulin; Z79.899 Other long term (current) drug therapy; Z88.6 Allergy status to analgesic agent
CPT/HCPCS: 36415; 62304; 72132; 82565; 84703; Q9966

== ENCOUNTER 2018-07-22 15:46 | Outpatient (CLI) | payer MEDICARE, MEDICAID ==
--- NOTE | 2018-07-22 16:06 | RAD ---
4 views lumbar spine. History: Spinal stenosis. AP, lateral, flexion and extension views lumbar spine obtained. Images demonstrate left L5 and S1 pedicle screw hardware in place. The patient has had a hemilumbosac ral fusion. The left S1 screw is fractured. Disc degenerative changes with anterior osteophytes seen at the L2-3 level. Some disc space height lo ss also seen at L1-2. IMPRESSION: 1. L1-2 and L2-3 changes of spondylosis. 2: Mechanical failure left S1 pedicle screw. Transcribed Date/Time: 07/22/2018 4:49 PM
== END 2018-07-22 15:47 | disposition home or self-care (01) ==
LOC: RAD 15:46
PROVIDERS: ATTEND Nurse Practitioner Family
DX: M48.062 Spinal stenosis, lumbar region with neurogenic claudication (principal); M47.816 Spondylosis without myelopathy or radiculopathy, lumbar region; T84.296A Other mechanical complication of internal fixation device of vertebrae, initial encounter
CPT/HCPCS: 72120

== ENCOUNTER 2018-10-19 09:06 | Inpatient (IN) | payer MEDICARE, MEDICAID ==
[2018-10-16 13:08] VITALS: BMI 31.1
[2018-10-19 09:39] LABS: #Eosinphils 0.4 thou/uL (0.0-0.7); #Lymphocytes 2.7 thou/uL (1.20-3.40); #Monocytes 0.6 thou/uL (0.11-0.59); #Neutrophils 8.4 thou/uL (1.40-6.50); %Basophils 0.4 % (0.0-1.0); %Eosinophils 3.7 % (0.0-10.0); %Lymphocytes 21.7 % (21.0-51.0); %Monocytes 5.1 % (0.0-10.0); %Neutrophils 69.2 % (42.0-75.0); Hemoglobin 12.1 g/dL (12.0-16.0); Mean Corpuscular HGB CONC 33.8 g/dL (32.0-36.0); Mean Corpuscular Volume 91.7 fL (78.0-98.0); Mean Platelet Volume 10.6 fL (7.4-10.4); Platelet Count 161 thou/uL (130-400); RBC Distribution Width 11.7 % (11.5-14.5); White Blood Cell (WBC) Count 12.2 thou/uL (4.8-10.8)
[2018-10-19] MEDS ORDERED: Sodium Chloride 0.9% 10 ML ONE (09:52)
[2018-10-19 10:02] LABS: Anion Gap 15 mmol/L (10-20); BUN (Urea Nitrogen) 31 mg/dL (7.0-18.7); Calc. Creatinine Clearance 63 mL/min (70-130); Carbon Dioxide 24 mmol/L (22-29); Chloride 103 mmol/L (98-107); Estimated GFR-MDRD 32; Glucose 126 mg/dL (70-105); Potassium 3.6 mmol/L (3.5-5.1); Sodium 138 mmol/L (136-145)
[2018-10-19] MEDS ORDERED: Fentanyl 100 MCG/2 ML VIAL ONE ×3 (10:46→13:56)
[2018-10-19] MEDS ORDERED: Midazolam HCl 2 mg/2 ml Vial ONE (10:48)
--- NOTE | 2018-10-19 12:06 | OP ---
DATE OF PROCEDURE: 10/19/2018 LEARNING DESIGNER: Michela Jacobson PA-C PROCEDURE PERFORMED: Removal of hardware, L5-S1, posterolateral arthrodesis L5-S1, pedicle screw instrumentation, BMP with cancellous bone chips L5-S1. DESCRIPTION OF PROCEDURE: The patient was brought to the operating room and intubated. She was rolled in the prone position on gel-filled chest rolls. The previous incision was reopened and the prior hardware was identified. We removed the nuts and rods and ultimately found that both S1 and L5 screw heads were fractured and these were removed. The shaft could not be accessed. We explored the spinal fusion. It did not appear to be solid. We next placed pedicle screws at right L5 and right S1 using lateral fluoroscopic guidance. The foster was secured between the screws, connected by nuts, which were final tightened. The bony surfaces were then prepared for the purpose of arthrodesis and a combination of BMP in a Gelfoam pledget with cancellous bone chips, it was laid over both laminar and lateral recesses. Prior to this, the wound had been extensively irrigated and MAC hemostasis had been secured. Vancomycin powder was then applied and the wound was closed in anatomic layers. Job ID: [id number]
[2018-10-19] MEDS ORDERED: HYDROmorphone 2 MG/ML VIAL ONE (12:50)
[2018-10-19] MEDS ORDERED: Lidocaine 1% PF 5 ML VIAL ONE (13:52)
[2018-10-19] MEDS ORDERED: Ondansetron PF 4 MG/2 ML Vial ONE (13:52)
[2018-10-19] MEDS ORDERED: Rocuronium Bromide 10 MG/ML (10ML VIAL) ONE (13:52)
[2018-10-19] MEDS ORDERED: Succinylcholine Chloride 20 MG/ML 10 ml SYRINGE FS ONE (13:52)
[2018-10-19] MEDS ORDERED: Dexamethasone 20 MG/5 ML VIAL ONE (13:52)
[2018-10-19] MEDS ORDERED: Glycopyrrolate 0.2 MG/ML 5 ML SYRINGE ONE (13:52)
[2018-10-19] MEDS ORDERED: PROPOFOL 200 MG/20 ML VIAL ONE (13:52)
--- NOTE | 2018-10-19 15:21 | EKG ---
Test Reason : PREOP Blood Pressure : / mmHG Vent. Rate : 077 BPM Atrial Rate : 077 BPM P-R Int : 152 ms QRS Dur : 094 ms QT Int : 398 ms P-R-T Axes : 061 011 024 degrees QTc Int : 450 ms Normal sinus rhythm Minimal voltage criteria for LVH, may be normal variant Borderline ECG When compared with ECG of 16-JUL-2017 14:54, ST no longer depressed in Anterolateral leads Confirmed by DR. Arabella RUFFIN ([id number]) on 10/19/2018 3:21:30 PM Referred By: ZAIN Confirmed By:DR. Arabella RUFFIN
== END 2018-10-19 16:30 | disposition home or self-care (01) | DRG 497 ==
LOC: SURG A 09:06 → EDSTATUS 14:45
PROVIDERS: ADMIT Neurological Surgery; ATTEND Neurological Surgery
PROC: 0SP30JZ Removal of Synthetic Substitute from Lumbosacral Joint, Open Approach (ICD-10-PCS; principal; 2018-10-19)
DX: T84.018A Broken internal joint prosthesis, other site, initial encounter (principal); M43.16 Spondylolisthesis, lumbar region; I10 Essential (primary) hypertension; E78.5 Hyperlipidemia, unspecified; J45.909 Unspecified asthma, uncomplicated; E11.9 Type 2 diabetes mellitus without complications; E03.9 Hypothyroidism, unspecified; M79.7 Fibromyalgia; F17.210 Nicotine dependence, cigarettes, uncomplicated; F41.9 Anxiety disorder, unspecified; F31.9 Bipolar disorder, unspecified; K21.9 Gastro-esophageal reflux disease without esophagitis; Y83.8 Other surgical procedures as the cause of abnormal reaction of the patient, or of later complication, without mention of misadventure at the time of the procedure; Z79.51 Long term (current) use of inhaled steroids; Z79.899 Other long term (current) drug therapy
CPT/HCPCS: 36415; 76000; 80048; 85025; 93005; 93010; J0690; J1100; J1170; J2001; J2250; J2405; J2704; J3010; J3370; J3490; L0639

== ENCOUNTER 2018-11-04 10:58 | Outpatient (CLI) | payer MEDICARE, MEDICAID ==
--- NOTE | 2018-11-04 12:42 | RAD ---
LUMBAR SPINE RADIOGRAPHS 2 VIEWS: DATE: 11/04/2018. PROVIDED CLINICAL HISTORY: Postop. FINDINGS: Comparison 07/22/2018. Interval placement of right-sided pedicle screws and vertical interconnecting foster at L5-S1. Interval removal of the posterior aspects of the left-sided hardware previously descri bed at these levels. Lumbar alignment appears normal. Vertebral body heights appear preserved. Cho lecystectomy clips are seen in the right upper quadrant. Stable somewhat linear density overlying th e left upper quadrant. IMPRESSION: Interval postoperative change as described. POS: OFF
== END 2018-11-04 10:59 | disposition home or self-care (01) ==
LOC: TBSIIMAG 10:58
PROVIDERS: ATTEND Neurological Surgery
DX: M43.16 Spondylolisthesis, lumbar region (principal); Z98.890 Other specified postprocedural states
CPT/HCPCS: 36415; 72100; 80048; 82570; 84156

== ENCOUNTER 2018-11-06 00:41 | Emergency (ER) | payer MEDICARE, MEDICAID ==
--- NOTE | 2018-11-06 07:43 | ULT ---
PRELIMINARY REPORT/[facility]/EMERGENCY AFTER HOURS PROCEDURE: PROCEDURE INFORMATION: Exam: US Duplex Right Lower Extremity Veins, Limited Exam date and time: 11/06/2018 2:41 AM Clinical history: 38 years old, female; Leg, upper; Right; Patient HX: Rle pain; Additional info: [facility] surgery 10/19/18 TECHNIQUE: Imaging protocol: Real-time Duplex ultrasound of the Right Lower Extremity with 2-D mccarty scale, color Doppler flow and spectral waveform analysis with image documentation. Limited exam was focused on th e right lower extremity veins. COMPARISON: No relevant prior studies available. FINDINGS: Right deep veins: Unremarkable. The common femoral, femoral, proximal profunda femoral and popliteal veins are patent without thrombus. Normal Doppler waveforms. Normal compressibility and/or augmentati on response. Right superficial veins: Unremarkable. Saphenofemoral junction is patent without thrombus. Soft tissues: Unremarkable. IMPRESSION: No acute findings. No evidence of deep vein thrombosis. Thank you for allowing us to participate in the care of your patient. Dictated and Authenticated by: Terry Johnson MD 11/06/2018 3:11 AM Central Time ([place] & [place]) FINAL REPORT EMERGENCY AFTER HOURS VENOUS DOPPLER ULTRASOUND: I agree with the preliminary report provided by Anselmo. POS:
== END 2018-11-06 03:17 | disposition home or self-care (01) ==
LOC: ERS 00:41
DX: M79.661 Pain in right lower leg (principal); J45.909 Unspecified asthma, uncomplicated; E11.40 Type 2 diabetes mellitus with diabetic neuropathy, unspecified; I10 Essential (primary) hypertension; E03.9 Hypothyroidism, unspecified; F41.9 Anxiety disorder, unspecified; F31.9 Bipolar disorder, unspecified; F17.210 Nicotine dependence, cigarettes, uncomplicated; Z79.899 Other long term (current) drug therapy; Z85.850 Personal history of malignant neoplasm of thyroid

== ENCOUNTER 2018-12-23 13:17 | Outpatient (CLI) | payer MEDICARE, MEDICAID ==
--- NOTE | 2018-12-23 14:36 | RAD ---
Lumbar spine 2 views: 12/23/2018 COMPARISON: 11/04/2018 HISTORY: Spondylolisthesis, prior lumbar spine surgery FINDINGS: At L2-3 there is disc space narrowing with degenerative endplate change and anterior osteop hyte formation, stable when compared to the prior exam. There is a right-sided pedicle screw at L5 and S1 with a vertically oriented interlocking foster. Partia lly removed pedicle screws are seen at the L4 and L5 levels on the left. Stable intervertebral disc device at L5-S1. Stable disc space narrowing and degenerative endplate change at the lumbosacral junc tion. No acute osseous abnormality. Clips in the right upper quadrant suggest prior cholecystectomy. On the frontal examination there is right lateral and left lateral osteophyte format ion, left greater than right, at the L1-2 level and lateral osteophyte formation, right greater than left, at the L2-3 level. IMPRESSION: Postoperative and degenerative change within the lumbar spine as described above.
== END 2018-12-23 13:18 | disposition home or self-care (01) ==
LOC: TBSI PT 13:17
PROVIDERS: ATTEND Neurological Surgery
DX: M43.16 Spondylolisthesis, lumbar region (principal); Z98.890 Other specified postprocedural states; M47.816 Spondylosis without myelopathy or radiculopathy, lumbar region
CPT/HCPCS: 72100

== ENCOUNTER 2020-09-29 15:18 | Emergency (ER) | payer MEDICARE, MEDICAID ==
[2020-09-29 16:59] LABS: #Basophils 0.1 thou/uL (0.0-0.2); #Eosinphils 0.2 thou/uL (0.0-0.7); #Monocytes 0.8 thou/uL (0.11-0.59); #Neutrophils 10.9 thou/uL (1.40-6.50); %Basophils 0.4 % (0.0-1.0); %Eosinophils 1.6 % (0.0-10.0); %Lymphocytes 14.5 % (21.0-51.0); %Monocytes 5.7 % (0.0-10.0); %Neutrophils 77.8 % (42.0-75.0); Mean Corpuscular HGB CONC 33.8 g/dL (32.0-36.0); Mean Corpuscular Hemoglobin 33.1 pg (27.0-31.0); Mean Corpuscular Volume 97.9 fL (78.0-98.0); Mean Platelet Volume 8.6 fL (7.4-10.4); Platelet Count 312 thou/uL (130-400); RBC Distribution Width 12.1 % (11.5-14.5); Red Blood Cell (RBC) Count 3.33 mill/uL (4.20-5.40)
[2020-09-29 17:53] LABS: Chloride 96 mmol/L (98-107); Potassium 3.7 mmol/L (3.5-5.1); Sodium 136 mmol/L (136-145)
[2020-09-29 17:54] LABS: Calcium 9.1 mg/dL (7.8-10.44)
[2020-09-29 17:55] LABS: Glucose 262 mg/dL (70-105)
[2020-09-29 17:56] LABS: Anion Gap 12 mmol/L (10-20); Carbon Dioxide 32 mmol/L (22-29)
[2020-09-29 17:57] LABS: Bilirubin, Total 0.2 mg/dL (0.2-1.2)
[2020-09-29 17:58] LABS: Alkaline Phosphatase 184 U/L (40-110); CRP (Inflammatory) 15.96 mg/dL (= or < 0.5); Calc. Creatinine Clearance 0 mL/min (70-130)
[2020-09-29 17:59] LABS: BUN (Urea Nitrogen) 18 mg/dL (7.0-18.7)
[2020-09-29 18:00] LABS: AST (SGOT) 21 U/L (5-34)
[2020-09-29 18:01] LABS: ALT (SGPT) 26 U/L (8-55)
== END 2020-09-29 19:30 | disposition home or self-care (01) ==
LOC: ERS 15:18
DX: E11.621 Type 2 diabetes mellitus with foot ulcer (principal); L97.519 Non-pressure chronic ulcer of other part of right foot with unspecified severity; E11.69 Type 2 diabetes mellitus with other specified complication; M86.9 Osteomyelitis, unspecified; I10 Essential (primary) hypertension; E03.9 Hypothyroidism, unspecified; E11.40 Type 2 diabetes mellitus with diabetic neuropathy, unspecified; F17.210 Nicotine dependence, cigarettes, uncomplicated
CPT/HCPCS: 36415; 80053; 85025; 85652; 86140; 87040; 94760

== ENCOUNTER 2022-12-07 16:35 | Inpatient (IN) | payer OTHER, MEDICAID ==
[2022-12-07] MEDS ORDERED: Cefepime 2 GM VIAL ONE (17:03)
[2022-12-07] MEDS ORDERED: Acetaminophen 500 MG TAB ONE (17:03)
[2022-12-07] MEDS ORDERED: Ondansetron PF 4 MG/2 ML Vial ONE ×2 (17:03→17:13)
[2022-12-07 17:05] LABS: #Basophils 0.1 thou/uL (0.0-0.2); #Eosinphils 0.1 thou/uL (0.0-0.7); #Monocytes 0.8 thou/uL (0.11-0.59); #Neutrophils 20.3 thou/uL (1.40-6.50); %Basophils 0.4 % (0.0-1.0); %Eosinophils 0.5 % (0.0-10.0); %Lymphocytes 2.6 % (21.0-51.0); %Monocytes 3.8 % (0.0-10.0); %Neutrophils 92.2 % (42.0-75.0); Hematocrit 36.2 % (36.0-47.0); Hemoglobin 12.3 g/dL (12.0-16.0); Mean Corpuscular Hemoglobin 32.5 pg (27.0-31.0); Mean Corpuscular Volume 95.8 fl (78.0-98.0); Mean Platelet Volume 11.3 fL (7.4-10.4); Platelet Count 273 10x3/uL (130-400); RBC Distribution Width 13.2 % (11.5-14.5); Red Blood Cell (RBC) Count 3.78 mill/uL (4.20-5.40)
[2022-12-07 17:16] LABS: PTT 33.5 sec (22.9-36.1); Prothrombin Time 13.2 sec (12.0-14.7)
[2022-12-07 17:27] LABS: ALT (SGPT) 9 U/L (8-55); AST (SGOT) 22 U/L (5-34); Albumin 2.6 g/dL (3.5-5.0); Alkaline Phosphatase 100 U/L (40-110); Anion Gap 15 mmol/L (10-20); BUN (Urea Nitrogen) 31 mg/dL (7.0-18.7); Bilirubin, Total 0.3 mg/dL (0.2-1.2); Calc. Creatinine Clearance 0 mL/min (70-130); Calcium 8.2 mg/dL (7.8-10.44); Carbon Dioxide 22 mmol/L (22-29); Chloride 101 mmol/L (98-107); Estimated GFR 15; Globulin 3.7 g/dL (2.4-3.5); Glucose 147 mg/dL (70-105); Potassium 3.8 mmol/L (3.5-5.1); Protein, Total 6.3 g/dL (6.0-8.3); Sodium 134 mmol/L (136-145)
[2022-12-07] MEDS ORDERED: Mag-Al 1200 mg/1200 mg/30 ML UDCUP ONE (17:34)
[2022-12-07 18:19] LABS: SARS-CoV-2 NAA Rapid Test Not Detected (NotDetected)
[2022-12-07 18:28] LABS: Bilirubin Negative (Negative); Blood, Urine 1+ (Negative); CAUTI Indications for Culture Pelvic or flank pain; Clarity Clear (Clear); Glucose, Urine (Dipstick) 200 mg/dL (Negative); Ketone, Urine Negative (Negative); Leukocyte Negative Leu/uL (Negative); Nitrite Negative (Negative); Protein, Urine (Dipstick) 300 mg/dL (Neg-Trace); RBC/HPF 0-3 HPF (0-3); Specific Gravity, Urine 1.019 (1.002-1.036); Urobilinogen Normal mg/dL (Less than 2); WBC/HPF 0-3 HPF (0-3); pH, Urine 6.5 (5.0-9.0)
[2022-12-07 18:29] LABS: Bacteria/HPF 1+ HPF (None Seen); Urine Culture Reflex No No
[2022-12-07] MEDS ORDERED: Vancomycin 1 GM/200 ML (FROZEN) BAG ONE (18:49)
[2022-12-07] MEDS ORDERED: Dextrose 50% Abboject 50 ML SYRINGE SLOW IVP PRN (19:15)
[2022-12-07] MEDS ORDERED: Ondansetron PF 4 MG/2 ML Vial IVP PRN (19:15)
[2022-12-07] MEDS ORDERED: Acetaminophen 325 MG TAB PO PRN (19:15)
[2022-12-07] MEDS ORDERED: Glucagon 1 MG/ML KIT IM PRN (19:15)
[2022-12-07] MEDS ORDERED: Ondansetron ODT 4 MG TAB PO PRN (19:15)
[2022-12-07] MEDS ORDERED: Acetaminophen 650 MG Suppository PR PRN (19:15)
[2022-12-07] MEDS ORDERED: Dextrose 5% in Water 1,000 ML IV PRN (19:15)
[2022-12-07] MEDS ORDERED: Sodium Chloride 0.9% 1,000 ML IV SCH (19:15)
[2022-12-07] MEDS ORDERED: Ipratropium/Albuterol 3 ML NEB NEB PRN (19:21)
[2022-12-07] MEDS ORDERED: Ipratropium/Albuterol 3 ML NEB NEB SCH (19:30)
[2022-12-07 19:39] LABS: Troponin I 0.048 ng/mL (< 0.028)
[2022-12-07] MEDS ORDERED: methylPREDNISolone Sod Succ 40 MG VIAL IVP SCH (19:45)
[2022-12-07] MEDS ORDERED: Lidocaine 4% Patch TD SCH (20:30)
[2022-12-07 20:34] LABS: Hemoglobin A1c 5.8 % (4.0-6.0)
[2022-12-07 20:43] LABS: Amphetamine Not Detected (NotDetected); Barbiturates Screen Not Detected (NotDetected); Benzodiazepine Screen Not Detected (NotDetected); Cocaine Metabolite Screen Not Detected (NotDetected); Methadone Not Detected (NotDetected); Methamphetamine Not Detected (NotDetected); Opiate Screen Detected (NotDetected); Oxycodone Screen Not Detected (NotDetected); Phencyclidine (PCP) Not Detected (NotDetected); THC/Cannabinoid Screen Detected (NotDetected); Tricyclic Screen Not Detected (NotDetected)
[2022-12-07] MEDS ORDERED: Famotidine 20 MG TAB PO SCH (21:00)
[2022-12-07 21:59] VITALS: BMI 26.6
[2022-12-07] MEDS: Insulin Glargine 30 UNITS/0.3 ML VIAL SC SCH (22:04)
[2022-12-07] MEDS: Gabapentin 400 MG CAP PO SCH (22:05)
[2022-12-07] MEDS: lamoTRIgine 100 MG TAB PO SCH (22:07)
[2022-12-07] MEDS: Amlodipine 5 MG TAB PO SCH (22:07)
[2022-12-07] MEDS: Montelukast Sodium 10 mg Tablet PO SCH (22:07)
[2022-12-07] MEDS: Azithromycin 500 MG in Sodium Chloride 0.9% 250 ML 250 ML IVPB SCH (22:08)
[2022-12-07] MEDS: Atorvastatin Calcium 40 MG TAB PO SCH (22:08)
[2022-12-07 22:35] LABS: Troponin I 0.055 ng/mL (< 0.028)
[2022-12-07] MEDS: Lurasidone 20 MG TABLET PO SCH (22:44)
[2022-12-08] MEDS: methylPREDNISolone Sod Succ 40 MG VIAL IVP SCH ×5 (00:11→23:45)
[2022-12-08] MEDS: Ipratropium Bromide 2.5 ml Neb NEB SCH ×4 (01:09→18:31)
[2022-12-08 02:43] LABS: #Basophils 0.1 thou/uL (0.0-0.2); #Monocytes 0.5 thou/uL (0.11-0.59); #Neutrophils 23.2 thou/uL (1.40-6.50); %Basophils 0.2 % (0.0-1.0); %Lymphocytes 1.8 % (21.0-51.0); %Monocytes 2.1 % (0.0-10.0); Hematocrit 35.6 % (36.0-47.0); Hemoglobin 11.9 g/dL (12.0-16.0); Mean Corpuscular HGB CONC 33.4 g/dL (32.0-36.0); Mean Corpuscular Hemoglobin 32.6 pg (27.0-31.0); Mean Corpuscular Volume 97.5 fl (78.0-98.0); Mean Platelet Volume 11.5 fL (7.4-10.4); Platelet Count 220 10x3/uL (130-400); RBC Distribution Width 13.5 % (11.5-14.5); Red Blood Cell (RBC) Count 3.65 mill/uL (4.20-5.40); White Blood Cell (WBC) Count 24.5 10x3/uL (4.8-10.8)
[2022-12-08 03:14] LABS: Anion Gap 16 mmol/L (10-20); BUN (Urea Nitrogen) 31 mg/dL (7.0-18.7); Calc. Creatinine Clearance 26 mL/min (70-130); Calcium 7.2 mg/dL (7.8-10.44); Carbon Dioxide 16 mmol/L (22-29); Chloride 108 mmol/L (98-107); Estimated GFR 15; Glucose 225 mg/dL (70-105); Sodium 136 mmol/L (136-145)
[2022-12-08 03:15] LABS: Troponin I 0.053 ng/mL (< 0.028)
[2022-12-08] MEDS: Levothyroxine Sodium 100 MCG TAB PO SCH (05:28)
[2022-12-08] MEDS: Icosapent Ethyl 1 GM CAPSULE PO SCH ×2 (09:31→17:20)
[2022-12-08] MEDS: Saccharomyces boulardii 250 MG CAP PO SCH (09:31)
[2022-12-08] MEDS: Gabapentin 400 MG CAP PO SCH (09:31)
[2022-12-08] MEDS: Famotidine 20 MG TAB PO SCH (09:32)
[2022-12-08] MEDS: Ferrous Sulfate 325 MG TAB PO SCH (09:32)
[2022-12-08] MEDS: Transdermal Patch Removal TOP SCH (09:39)
[2022-12-08] MEDS ORDERED: hydrALAZINE 25 MG TAB PO SCH (12:15)
[2022-12-08] MEDS ORDERED: HumaLOG 300 UNITS/3 ML VIAL SC PRN (12:43)
[2022-12-08] MEDS: Amlodipine 5 MG TAB PO SCH (20:12)
[2022-12-08] MEDS: lamoTRIgine 100 MG TAB PO SCH (20:12)
[2022-12-08] MEDS: hydrALAZINE 25 MG TAB PO SCH (20:12)
[2022-12-08] MEDS: Lurasidone 20 MG TABLET PO SCH (20:13)
[2022-12-08] MEDS: Acetaminophen/Codeine 30-300mg Tablet PO PRN (20:13)
[2022-12-08] MEDS: Atorvastatin Calcium 40 MG TAB PO SCH (20:13)
[2022-12-08] MEDS: Montelukast Sodium 10 mg Tablet PO SCH (20:13)
[2022-12-08] MEDS: Insulin Glargine 30 UNITS/0.3 ML VIAL SC SCH (20:14)
[2022-12-08] MEDS: cefTRIAXone\\ROCEPHIN 2 GM in Sodium Chloride 0.9% 100 ML IVPB SCH (20:14)
[2022-12-08] MEDS: Lidocaine 4% Patch TD SCH (20:15)
[2022-12-08] MEDS: HumaLOG 300 UNITS/3 ML VIAL SC PRN (20:59)
[2022-12-08] MEDS: Azithromycin 500 MG in Sodium Chloride 0.9% 250 ML 250 ML IVPB SCH (22:13)
[2022-12-09] MEDS: Ipratropium Bromide 2.5 ml Neb NEB SCH ×4 (00:54→19:01)
[2022-12-09] MEDS: methylPREDNISolone Sod Succ 40 MG VIAL IVP SCH ×3 (05:45→18:36)
[2022-12-09] MEDS: Levothyroxine Sodium 100 MCG TAB PO SCH (05:49)
[2022-12-09] MEDS: Icosapent Ethyl 1 GM CAPSULE PO SCH ×2 (09:42→16:25)
[2022-12-09] MEDS: Ferrous Sulfate 325 MG TAB PO SCH (09:43)
[2022-12-09] MEDS: Saccharomyces boulardii 250 MG CAP PO SCH (09:43)
[2022-12-09] MEDS: Gabapentin 300 MG CAP PO SCH ×2 (09:43→20:44)
[2022-12-09] MEDS: Famotidine 20 MG TAB PO SCH (09:44)
[2022-12-09] MEDS: hydrALAZINE 25 MG TAB PO SCH ×3 (09:45→21:00)
[2022-12-09] MEDS: Transdermal Patch Removal TOP SCH (09:46)
[2022-12-09 10:37] LABS: #Basophils 0.1 thou/uL (0.0-0.2); #Monocytes 0.6 thou/uL (0.11-0.59); #Neutrophils 28.2 thou/uL (1.40-6.50); %Basophils 0.2 % (0.0-1.0); %Lymphocytes 2.4 % (21.0-51.0); %Neutrophils 94.3 % (42.0-75.0); Hematocrit 36.5 % (36.0-47.0); Hemoglobin 12.2 g/dL (12.0-16.0); Mean Corpuscular HGB CONC 33.4 g/dL (32.0-36.0); Mean Corpuscular Hemoglobin 32.2 pg (27.0-31.0); Mean Corpuscular Volume 96.3 fl (78.0-98.0); Mean Platelet Volume 11.8 fL (7.4-10.4); Platelet Count 278 10x3/uL (130-400); RBC Distribution Width 13.7 % (11.5-14.5); Red Blood Cell (RBC) Count 3.79 mill/uL (4.20-5.40); White Blood Cell (WBC) Count 29.9 10x3/uL (4.8-10.8)
[2022-12-09 11:00] LABS: Anion Gap 12 mmol/L (10-20); BUN (Urea Nitrogen) 33 mg/dL (7.0-18.7); Calc. Creatinine Clearance 30 mL/min (70-130); Calcium 7.5 mg/dL (7.8-10.44); Carbon Dioxide 22 mmol/L (22-29); Chloride 105 mmol/L (98-107); Estimated GFR 19; Glucose 140 mg/dL (70-105); Potassium 4.1 mmol/L (3.5-5.1); Sodium 135 mmol/L (136-145)
[2022-12-09] MEDS ORDERED: NIFEdipine XL 30 MG ER.TAB PO SCH (11:45)
[2022-12-09] MEDS: guaiFENesin ER 600 MG TAB PO SCH ×2 (11:46→20:45)
[2022-12-09] MEDS: ALPRAZolam 0.25 MG TAB PO PRN (18:36)
[2022-12-09] MEDS: cefTRIAXone\\ROCEPHIN 2 GM in Sodium Chloride 0.9% 100 ML IVPB SCH (20:44)
[2022-12-09] MEDS: Lidocaine 4% Patch TD SCH (20:44)
[2022-12-09] MEDS: Montelukast Sodium 10 mg Tablet PO SCH (20:44)
[2022-12-09] MEDS: lamoTRIgine 100 MG TAB PO SCH (20:44)
[2022-12-09] MEDS: Insulin Glargine 30 UNITS/0.3 ML VIAL SC SCH (20:45)
[2022-12-09] MEDS: Lurasidone 20 MG TABLET PO SCH (20:45)
[2022-12-09] MEDS: Atorvastatin Calcium 40 MG TAB PO SCH (20:45)
[2022-12-09] MEDS: HumaLOG 300 UNITS/3 ML VIAL SC PRN (21:00)
[2022-12-09] MEDS: Acetaminophen/Codeine 30-300mg Tablet PO PRN (21:48)
[2022-12-09] MEDS: Azithromycin 500 MG in Sodium Chloride 0.9% 250 ML 250 ML IVPB SCH (21:49)
[2022-12-10] MEDS ORDERED: traZODone HCl 50 MG TAB PO SCH (01:15)
[2022-12-10] MEDS: Ipratropium Bromide 2.5 ml Neb NEB SCH ×5 (01:16→22:17)
[2022-12-10] MEDS: methylPREDNISolone Sod Succ 40 MG VIAL IVP SCH ×3 (01:22→21:14)
[2022-12-10 05:13] LABS: #Monocytes 0.5 thou/uL (0.11-0.59); #Neutrophils 22.5 thou/uL (1.40-6.50); %Basophils 0.1 % (0.0-1.0); %Monocytes 2.2 % (0.0-10.0); %Neutrophils 93.5 % (42.0-75.0); Hemoglobin 11.1 g/dL (12.0-16.0); Mean Corpuscular HGB CONC 33.6 g/dL (32.0-36.0); Mean Corpuscular Hemoglobin 32.2 pg (27.0-31.0); Mean Corpuscular Volume 95.7 fl (78.0-98.0); Platelet Count 231 10x3/uL (130-400); RBC Distribution Width 13.5 % (11.5-14.5); Red Blood Cell (RBC) Count 3.45 mill/uL (4.20-5.40)
[2022-12-10] MEDS: Levothyroxine Sodium 100 MCG TAB PO SCH (05:38)
[2022-12-10 05:44] LABS: Anion Gap 18 mmol/L (10-20); BUN (Urea Nitrogen) 42 mg/dL (7.0-18.7); Calc. Creatinine Clearance 29 mL/min (70-130); Carbon Dioxide 18 mmol/L (22-29); Chloride 105 mmol/L (98-107); Estimated GFR 17; Glucose 152 mg/dL (70-105); Potassium 3.9 mmol/L (3.5-5.1); Sodium 137 mmol/L (136-145)
[2022-12-10] MEDS: NIFEdipine XL 30 MG ER.TAB PO SCH (10:17)
[2022-12-10] MEDS: Famotidine 20 MG TAB PO SCH (10:18)
[2022-12-10] MEDS: Gabapentin 300 MG CAP PO SCH ×2 (10:18→19:37)
[2022-12-10] MEDS: Icosapent Ethyl 1 GM CAPSULE PO SCH ×2 (10:18→15:55)
[2022-12-10] MEDS: Saccharomyces boulardii 250 MG CAP PO SCH (10:20)
[2022-12-10] MEDS: guaiFENesin ER 600 MG TAB PO SCH ×2 (10:20→19:37)
[2022-12-10] MEDS: Ferrous Sulfate 325 MG TAB PO SCH (10:20)
[2022-12-10] MEDS: Transdermal Patch Removal TOP SCH (10:22)
[2022-12-10] MEDS: hydrALAZINE 25 MG TAB PO SCH ×3 (10:30→19:38)
[2022-12-10] MEDS: ALPRAZolam 0.25 MG TAB PO PRN (15:54)
[2022-12-10] MEDS ORDERED: ALPRAZolam 0.25 MG TAB PO SCH (18:00)
[2022-12-10] MEDS: cefTRIAXone\\ROCEPHIN 2 GM in Sodium Chloride 0.9% 100 ML IVPB SCH (19:36)
[2022-12-10] MEDS: Atorvastatin Calcium 40 MG TAB PO SCH (19:36)
[2022-12-10] MEDS: Insulin Glargine 30 UNITS/0.3 ML VIAL SC SCH (19:38)
[2022-12-10] MEDS: lamoTRIgine 100 MG TAB PO SCH (19:38)
[2022-12-10] MEDS: Montelukast Sodium 10 mg Tablet PO SCH (19:38)
[2022-12-10] MEDS: Lurasidone 20 MG TABLET PO SCH (19:38)
[2022-12-10] MEDS: Acetaminophen/Codeine 30-300mg Tablet PO PRN (19:45)
[2022-12-10] MEDS: Azithromycin 500 MG in Sodium Chloride 0.9% 250 ML 250 ML IVPB SCH (20:33)
[2022-12-10] MEDS ORDERED: FLU VACC QS2023-24(6MOS UP)/PF 60 MCG/0.5 ML SYRINGE IM ONE (22:45)
[2022-12-10] MEDS: Lidocaine 4% Patch TD SCH (23:12)
[2022-12-11] MEDS: ALPRAZolam 0.25 MG TAB PO PRN (03:32)
[2022-12-11 04:17] LABS: #Eosinphils 0.1 thou/uL (0.0-0.7); #Monocytes 0.6 thou/uL (0.11-0.59); #Neutrophils 17.4 thou/uL (1.40-6.50); %Basophils 0.2 % (0.0-1.0); %Eosinophils 0.4 % (0.0-10.0); %Lymphocytes 9.3 % (21.0-51.0); %Monocytes 3.1 % (0.0-10.0); %Neutrophils 85.4 % (42.0-75.0); Hematocrit 34.1 % (36.0-47.0); Hemoglobin 11.2 g/dL (12.0-16.0); Mean Corpuscular HGB CONC 32.8 g/dL (32.0-36.0); Mean Corpuscular Hemoglobin 31.9 pg (27.0-31.0); Mean Corpuscular Volume 97.2 fl (78.0-98.0); Mean Platelet Volume 11.5 fL (7.4-10.4); Platelet Count 257 10x3/uL (130-400); RBC Distribution Width 13.5 % (11.5-14.5); Red Blood Cell (RBC) Count 3.51 mill/uL (4.20-5.40); White Blood Cell (WBC) Count 20.4 10x3/uL (4.8-10.8)
[2022-12-11 04:45] LABS: Anion Gap 16 mmol/L (10-20); BUN (Urea Nitrogen) 46 mg/dL (7.0-18.7); Calc. Creatinine Clearance 29 mL/min (70-130); Carbon Dioxide 20 mmol/L (22-29); Chloride 104 mmol/L (98-107); Estimated GFR 17; Glucose 93 mg/dL (70-105); Potassium 3.8 mmol/L (3.5-5.1); Sodium 136 mmol/L (136-145)
[2022-12-11] MEDS: Levothyroxine Sodium 100 MCG TAB PO SCH (05:47)
[2022-12-11] MEDS: Ipratropium Bromide 2.5 ml Neb NEB SCH ×2 (06:14→12:41)
[2022-12-11] MEDS: NIFEdipine XL 30 MG ER.TAB PO SCH (07:48)
[2022-12-11] MEDS: Icosapent Ethyl 1 GM CAPSULE PO SCH (07:49)
[2022-12-11] MEDS: Saccharomyces boulardii 250 MG CAP PO SCH (07:49)
[2022-12-11] MEDS: hydrALAZINE 25 MG TAB PO SCH (07:49)
[2022-12-11] MEDS: guaiFENesin ER 600 MG TAB PO SCH (07:50)
[2022-12-11] MEDS: Ferrous Sulfate 325 MG TAB PO SCH (07:51)
[2022-12-11] MEDS: Famotidine 20 MG TAB PO SCH (07:51)
[2022-12-11] MEDS: Gabapentin 300 MG CAP PO SCH (07:52)
[2022-12-11] MEDS: Transdermal Patch Removal TOP SCH (07:56)
[2022-12-11] MEDS ORDERED: predniSONE 20 MG TAB PO SCH (08:00)
[2022-12-11] MEDS ORDERED: Amlodipine 5 MG TAB PO SCH (09:45)
[2022-12-11 11:05] VITALS: BP 190/99; TEMP 98.1
[2022-12-11 12:35] LABS: Troponin I 0.078 ng/mL (< 0.028)
[2022-12-12] MEDS ORDERED: Amlodipine 10 MG TAB PO SCH (09:00)
== END 2022-12-11 13:50 | disposition home or self-care (01) | DRG 871 ==
LOC: ERS 16:35 → 2SW 18:59 → OBSVTOIN 18:59
PROVIDERS: ADMIT Hospitalist; ATTEND Internal Medicine
DX: A41.9 Sepsis, unspecified organism (principal); I21.A1 Myocardial infarction type 2; J18.9 Pneumonia, unspecified organism; J96.01 Acute respiratory failure with hypoxia; N17.9 Acute kidney failure, unspecified; N18.4 Chronic kidney disease, stage 4 (severe); Z91.048 Other nonmedicinal substance allergy status; Z79.899 Other long term (current) drug therapy; E03.9 Hypothyroidism, unspecified; Z90.49 Acquired absence of other specified parts of digestive tract; Z90.89 Acquired absence of other organs; F41.9 Anxiety disorder, unspecified; F31.9 Bipolar disorder, unspecified; F17.210 Nicotine dependence, cigarettes, uncomplicated; G40.909 Epilepsy, unspecified, not intractable, without status epilepticus; I12.9 Hypertensive chronic kidney disease with stage 1 through stage 4 chronic kidney disease, or unspecified chronic kidney disease; E11.22 Type 2 diabetes mellitus with diabetic chronic kidney disease; Z89.511 Acquired absence of right leg below knee; Z83.3 Family history of diabetes mellitus; Z20.822 Contact with and (suspected) exposure to COVID-19; E11.40 Type 2 diabetes mellitus with diabetic neuropathy, unspecified; E83.51 Hypocalcemia; D63.1 Anemia in chronic kidney disease; Z79.4 Long term (current) use of insulin; I16.0 Hypertensive urgency; N28.1 Cyst of kidney, acquired
CPT/HCPCS: 36415; 36416; 71045; 76770; 80048; 80053; 80306; 81001; 83036; 83605; 84484; 85025; 85610; 85730; 87040; 87086; 93005; 93010; 94640; 94760; 96361; 96374; 96375; J0456; J0692; J0696; J1815; J2405; J2920; J3370-JW; J3490; J7050; J7512; J7620

== ENCOUNTER 2022-12-13 14:04 | Inpatient (IN) | payer OTHER, MEDICAID ==
[2022-12-13] MEDS ORDERED: Ondansetron PF 4 MG/2 ML Vial IVP PRN (15:36)
[2022-12-13] MEDS ORDERED: Guaifenesin DM 100-10/5 ML UDCUP PO PRN (15:36)
[2022-12-13] MEDS ORDERED: Senokot S 8.6-50 MG TAB PO PRN (15:36)
[2022-12-13 15:56] VITALS: BMI 28.3
[2022-12-13] MEDS ORDERED: Dextrose 5% in Water 1,000 ML IV PRN (16:19)
[2022-12-13] MEDS ORDERED: Dextrose 50% Abboject 50 ML SYRINGE SLOW IVP PRN (16:19)
[2022-12-13] MEDS ORDERED: Insulin Regular 300 UNITS/3 ML VIAL SC PRN (16:19)
[2022-12-13] MEDS ORDERED: Glucagon 1 MG/ML KIT IM PRN (16:19)
[2022-12-13 16:47] LABS: ALT (SGPT) 22 U/L (8-55); AST (SGOT) 24 U/L (5-34); Albumin 2.7 g/dL (3.5-5.0); Alkaline Phosphatase 114 U/L (40-110); Anion Gap 16 mmol/L (10-20); BUN (Urea Nitrogen) 54 mg/dL (7.0-18.7); Bilirubin, Total Less than 0.2 mg/dL (0.2-1.2); Calc. Creatinine Clearance 24 mL/min (70-130); Carbon Dioxide 19 mmol/L (22-29); Chloride 106 mmol/L (98-107); Estimated GFR 13; Globulin 2.5 g/dL (2.4-3.5); Glucose 89 mg/dL (70-105); Potassium 4.1 mmol/L (3.5-5.1); Protein, Total 5.2 g/dL (6.0-8.3); Sodium 137 mmol/L (136-145)
[2022-12-13 16:54] LABS: Calcium 6.6 mg/dL (7.8-10.44)
[2022-12-13] MEDS ORDERED: Vancomycin 1 GM in Premix 1 BAG IVPB SCH (17:00)
[2022-12-13] MEDS ORDERED: Nicotine 14 MG PATCH TD SCH (17:00)
[2022-12-13] MEDS ORDERED: Vancomycin Dose by Levels Sliding Scale (Wt 71-99) FS SCH (17:15)
[2022-12-13] MEDS ORDERED: Vancomycin (BATCH) 1.75 GM in Premix 1 BAG IVPB SCH (17:15)
[2022-12-13] MEDS ORDERED: FLU VACC QS2023-24(6MOS UP)/PF 60 MCG/0.5 ML SYRINGE IM ONE (17:30)
[2022-12-13] MEDS: Cefepime 1 GM in Sodium Chloride 0.9% 100 ML IVPB SCH (18:00)
[2022-12-13] MEDS: Icosapent Ethyl 1 GM CAPSULE PO SCH (18:10)
[2022-12-13 19:43] LABS: Bilirubin Negative (Negative); Blood, Urine 1+ (Negative); Clarity Turbid (Clear); Glucose, Urine (Dipstick) Normal (Negative); Ketone, Urine Negative (Negative); Leukocyte 250 Leu/uL (Negative); Nitrite Negative (Negative); Protein, Urine (Dipstick) 300 mg/dL (Neg-Trace); Specific Gravity, Urine 1.017 (1.002-1.036); Urobilinogen Normal mg/dL (Less than 2)
[2022-12-13 20:00] LABS: Bacteria/HPF 1+ HPF (None Seen); Squamous Epithelial 0-3 HPF (0-3); WBC/HPF 21-50 HPF (0-3); Yeast-Budding 2+ HPF (None Seen)
[2022-12-13] MEDS ORDERED: Lurasidone 40 MG TAB PO SCH (21:00)
[2022-12-13] MEDS: Lurasidone 20 MG TABLET PO SCH (21:16)
[2022-12-13] MEDS: traZODone HCl 50 MG TAB PO SCH (21:17)
[2022-12-13] MEDS: Montelukast Sodium 10 mg Tablet PO SCH (21:18)
[2022-12-13] MEDS: hydrALAZINE 25 MG TAB PO SCH (21:18)
[2022-12-13] MEDS: Atorvastatin Calcium 40 MG TAB PO SCH (21:19)
[2022-12-13] MEDS: lamoTRIgine 100 MG TAB PO SCH (21:19)
[2022-12-13] MEDS: Insulin Glargine 30 UNITS/0.3 ML VIAL SC SCH (21:20)
[2022-12-13] MEDS: Heparin 5,000 UNITS/ML VIAL SC SCH (21:22)
[2022-12-13] MEDS: Ipratropium/Albuterol 3 ML NEB NEB PRN (21:31)
[2022-12-13] MEDS ORDERED: Bisacodyl 5 MG TAB PO PRN (22:07)
[2022-12-13] MEDS ORDERED: Nicotine 14 MG PATCH TD PRN (22:07)
[2022-12-13] MEDS ORDERED: Bisacodyl 5 MG TAB PO SCH (22:15)
[2022-12-13 23:18] LABS: Legionella Urinary Ag Negative (Negative)
[2022-12-13 23:19] LABS: Strep pneumo Urine Ag NEGATIVE (NEGATIVE)
[2022-12-14] MEDS: Ipratropium/Albuterol 3 ML NEB NEB PRN ×3 (03:50→10:33)
[2022-12-14] MEDS: Levothyroxine 150 MCG TAB PO SCH (04:44)
[2022-12-14 05:03] LABS: Hematocrit 27.3 % (36.0-47.0); Hemoglobin 8.9 g/dL (12.0-16.0); Mean Corpuscular HGB CONC 32.6 g/dL (32.0-36.0); Mean Corpuscular Hemoglobin 31.9 pg (27.0-31.0); Mean Corpuscular Volume 97.8 fl (78.0-98.0); Mean Platelet Volume 11.4 fL (7.4-10.4); Platelet Count 278 10x3/uL (130-400); RBC Distribution Width 14.2 % (11.5-14.5); Red Blood Cell (RBC) Count 2.79 mill/uL (4.20-5.40); White Blood Cell (WBC) Count 21.3 10x3/uL (4.8-10.8)
[2022-12-14 05:22] LABS: Anion Gap 15 mmol/L (10-20); BUN (Urea Nitrogen) 54 mg/dL (7.0-18.7); Calc. Creatinine Clearance 23 mL/min (70-130); Carbon Dioxide 19 mmol/L (22-29); Chloride 109 mmol/L (98-107); Estimated GFR 12; Glucose 92 mg/dL (70-105); Potassium 3.7 mmol/L (3.5-5.1); Sodium 139 mmol/L (136-145)
[2022-12-14 05:27] LABS: Calcium 6.8 mg/dL (7.8-10.44)
[2022-12-14 05:42] LABS: Delete Auto Diff?? YES; Manual Diff?? YES
[2022-12-14 06:33] LABS: Anisocytosis SLIGHT = 6-15 cells HPF (0-5); CellaVision Operator ID LAB.JMM; Eosinophils 3 % (0-10); Lymphocytes 5 % (21-51); Macrocytosis SLIGHT = 6-15 cells HPF (0-5); Monocytes 3 % (0-10); Neutrophil 88 % (42-75); Platelet Adequacy Comment Platelets Normal; Polychromasia SLIGHT = 2-3 cells HPF (0-2); Reactive Lymphocytes 1 % (0-10); Total Cell Count 100
[2022-12-14] MEDS: hydrALAZINE 25 MG TAB PO SCH ×3 (08:38→20:56)
[2022-12-14] MEDS: Cholecalciferol 1,000 UNITS (25 MCG) TAB PO SCH (08:38)
[2022-12-14] MEDS: Icosapent Ethyl 1 GM CAPSULE PO SCH ×2 (08:38→16:25)
[2022-12-14] MEDS: Heparin 5,000 UNITS/ML VIAL SC SCH ×3 (08:38→21:15)
[2022-12-14] MEDS: Saccharomyces boulardii 250 MG CAP PO SCH (08:39)
[2022-12-14] MEDS: Prazosin HCl 1 MG CAP PO SCH (08:39)
[2022-12-14] MEDS: NIFEdipine XL 60 MG ER.TAB PO SCH (08:39)
[2022-12-14] MEDS ORDERED: ATOMOXETINE HCL 40 MG PO SCH (09:00)
[2022-12-14 14:01] LABS: Creatinine, Urine 80.5 mg/dL (47-110)
[2022-12-14] MEDS: Ipratropium/Albuterol 3 ML NEB NEB SCH ×3 (14:48→22:37)
[2022-12-14] MEDS ORDERED: Furosemide 40 MG/4 ML VIAL SLOW IVP SCH (15:30)
[2022-12-14] MEDS: Cefepime 1 GM in Sodium Chloride 0.9% 100 ML IVPB SCH (17:50)
[2022-12-14 18:38] LABS: Vancomycin, Random 19.9 ug/mL (See Comment)
[2022-12-14] MEDS ORDERED: Vancomycin HCl 500 MG in Sodium Chloride 0.9% 100 ML IV SCH (20:00)
[2022-12-14] MEDS: Lurasidone 20 MG TABLET PO SCH (20:55)
[2022-12-14] MEDS: traZODone HCl 50 MG TAB PO SCH (20:55)
[2022-12-14] MEDS: lamoTRIgine 100 MG TAB PO SCH (20:56)
[2022-12-14] MEDS: Atorvastatin Calcium 40 MG TAB PO SCH (20:56)
[2022-12-14] MEDS: Montelukast Sodium 10 mg Tablet PO SCH (20:57)
[2022-12-14] MEDS: Insulin Glargine 30 UNITS/0.3 ML VIAL SC SCH (21:15)
[2022-12-15] MEDS: Ipratropium/Albuterol 3 ML NEB NEB SCH ×6 (02:16→21:55)
[2022-12-15] MEDS: Levothyroxine 150 MCG TAB PO SCH (04:53)
[2022-12-15 05:24] LABS: Anion Gap 15 mmol/L (10-20); BUN (Urea Nitrogen) 62 mg/dL (7.0-18.7); Calc. Creatinine Clearance 20 mL/min (70-130); Carbon Dioxide 19 mmol/L (22-29); Chloride 108 mmol/L (98-107); Estimated GFR 10; Glucose 81 mg/dL (70-105); Potassium 3.6 mmol/L (3.5-5.1); Sodium 138 mmol/L (136-145)
[2022-12-15 05:27] LABS: Calcium 6.5 mg/dL (7.8-10.44)
[2022-12-15] MEDS: Heparin 5,000 UNITS/ML VIAL SC SCH ×3 (09:41→20:03)
[2022-12-15] MEDS: Prazosin HCl 1 MG CAP PO SCH (09:41)
[2022-12-15] MEDS: Cholecalciferol 1,000 UNITS (25 MCG) TAB PO SCH (09:41)
[2022-12-15] MEDS: NIFEdipine XL 60 MG ER.TAB PO SCH (09:41)
[2022-12-15] MEDS: hydrALAZINE 25 MG TAB PO SCH ×3 (09:41→20:02)
[2022-12-15] MEDS: Icosapent Ethyl 1 GM CAPSULE PO SCH ×2 (09:41→16:15)
[2022-12-15] MEDS: Saccharomyces boulardii 250 MG CAP PO SCH (09:42)
[2022-12-15] MEDS ORDERED: Furosemide 40 MG/4 ML VIAL SLOW IVP SCH (11:45)
[2022-12-15 14:54] LABS: #Basophils 0.1 thou/uL (0.0-0.2); #Eosinphils 0.2 thou/uL (0.0-0.7); #Monocytes 0.8 thou/uL (0.11-0.59); #Neutrophils 15.2 thou/uL (1.40-6.50); %Basophils 0.3 % (0.0-1.0); %Eosinophils 1.2 % (0.0-10.0); %Lymphocytes 8.4 % (21.0-51.0); %Monocytes 4.1 % (0.0-10.0); %Neutrophils 81.4 % (42.0-75.0); Hematocrit 26.6 % (36.0-47.0); Hemoglobin 8.6 g/dL (12.0-16.0); Mean Corpuscular HGB CONC 32.3 g/dL (32.0-36.0); Mean Corpuscular Hemoglobin 31.9 pg (27.0-31.0); Mean Corpuscular Volume 98.5 fl (78.0-98.0); Platelet Count 269 10x3/uL (130-400); RBC Distribution Width 14.5 % (11.5-14.5); White Blood Cell (WBC) Count 18.7 10x3/uL (4.8-10.8)
[2022-12-15] MEDS: Acetaminophen 325 MG TAB PO PRN (16:50)
[2022-12-15] MEDS: Cefepime 1 GM in Sodium Chloride 0.9% 100 ML IVPB SCH (16:51)
[2022-12-15] MEDS: Lurasidone 20 MG TABLET PO SCH (20:03)
[2022-12-15] MEDS: Atorvastatin Calcium 40 MG TAB PO SCH (20:03)
[2022-12-15] MEDS: Montelukast Sodium 10 mg Tablet PO SCH (20:03)
[2022-12-15] MEDS: lamoTRIgine 100 MG TAB PO SCH (20:03)
[2022-12-15] MEDS: traZODone HCl 50 MG TAB PO SCH (20:04)
[2022-12-15] MEDS ORDERED: Calcium Carbonate 500 MG ChewTAB PO PRN (21:03)
[2022-12-15] MEDS: Insulin Glargine 30 UNITS/0.3 ML VIAL SC SCH (21:16)
[2022-12-15] MEDS: Calcium Carbonate 500 MG ChewTAB PO PRN (21:17)
[2022-12-16] MEDS: Ipratropium/Albuterol 3 ML NEB NEB SCH ×6 (01:52→23:44)
[2022-12-16] MEDS: Levothyroxine 150 MCG TAB PO SCH (05:11)
[2022-12-16 06:03] LABS: Anion Gap 15 mmol/L (10-20); BUN (Urea Nitrogen) 67 mg/dL (7.0-18.7); Calc. Creatinine Clearance 18 mL/min (70-130); Carbon Dioxide 19 mmol/L (22-29); Chloride 108 mmol/L (98-107); Estimated GFR 9; Glucose 102 mg/dL (70-105); Potassium 3.8 mmol/L (3.5-5.1); Sodium 138 mmol/L (136-145)
[2022-12-16 06:07] LABS: Calcium 6.9 mg/dL (7.8-10.44)
[2022-12-16 06:25] LABS: HBSAB Concentration Less than 8.00 mIU/mL; HBSAg Index 0.16 S/CO (0-0.99); Hep B Core Total Ab Non-Reactive (NonReactive); Hep B Core Total Index 0.16 S/CO (0-0.79); Hep B Surf AB Non-Reactive (NonReactive); Hep B Surf Ag Non-Reactive S/CO (NonReactive); Hep C IgG Ab Non-Reactive S/CO (NonReactive); Hep C Index 0.11 S/CO (0-0.79)
[2022-12-16] MEDS ORDERED: Heparin 10,000 UNITS/ 10 ML VIAL ONE (06:49)
[2022-12-16] MEDS ORDERED: EPINEPHrine 1 MG/ML VIAL ONE (06:49)
[2022-12-16] MEDS ORDERED: Bupivacaine PF 0.5% 30 ML VIAL ONE (06:50)
[2022-12-16] MEDS ORDERED: Lidocaine 2% PF 5 ML VIAL ONE (06:50)
[2022-12-16] MEDS ORDERED: Midazolam HCl 2 mg/2 ml Vial ONE (07:00)
[2022-12-16] MEDS ORDERED: Dexmedetomidine 200 MCG/2 ML VIAL ONE (07:00)
[2022-12-16] MEDS ORDERED: fentaNYL PF 100 MCG/2 ML SYRINGE ONE (07:01)
[2022-12-16] MEDS ORDERED: Sodium Chloride 0.9% 100 ML ONE (07:22)
[2022-12-16] MEDS ORDERED: CEFAZOLIN 2 GM VIAL ONE (07:22)
[2022-12-16] MEDS ORDERED: PHENYLEPHRINE-NS 100 MCG/ML 10 ML SYRINGE ONE (07:40)
[2022-12-16] MEDS ORDERED: PROPOFOL 200 MG/20 ML VIAL ONE (07:40)
[2022-12-16] MEDS ORDERED: Ondansetron PF 4 MG/2 ML Vial ONE (07:40)
[2022-12-16] MEDS ORDERED: Lidocaine 1% PF 5 ML VIAL ONE (07:40)
[2022-12-16] MEDS: Cholecalciferol 1,000 UNITS (25 MCG) TAB PO SCH (10:01)
[2022-12-16] MEDS: Saccharomyces boulardii 250 MG CAP PO SCH (10:01)
[2022-12-16] MEDS: NIFEdipine XL 60 MG ER.TAB PO SCH (10:01)
[2022-12-16] MEDS: Acetaminophen 325 MG TAB PO PRN (10:01)
[2022-12-16] MEDS: hydrALAZINE 25 MG TAB PO SCH ×3 (10:01→20:20)
[2022-12-16] MEDS: Heparin 5,000 UNITS/ML VIAL SC SCH ×3 (10:01→22:03)
[2022-12-16] MEDS: Icosapent Ethyl 1 GM CAPSULE PO SCH ×2 (10:01→20:29)
[2022-12-16] MEDS: Prazosin HCl 1 MG CAP PO SCH (10:01)
[2022-12-16] MEDS ORDERED: HYDROcodone/Acetaminophen 10/325 mg Tablet PO PRN (12:24)
[2022-12-16] MEDS ORDERED: CEFAZOLIN 2 GM in Sodium Chloride 0.9% 100 ML IVPB SCH (13:45)
[2022-12-16] MEDS: Epoetin (ESRD) 10,000 UNITS/ML VIAL IVP SCH (16:02)
[2022-12-16] MEDS: Montelukast Sodium 10 mg Tablet PO SCH (20:21)
[2022-12-16] MEDS: Lurasidone 20 MG TABLET PO SCH (20:21)
[2022-12-16] MEDS: lamoTRIgine 100 MG TAB PO SCH (20:21)
[2022-12-16] MEDS: traZODone HCl 50 MG TAB PO SCH (20:21)
[2022-12-16] MEDS: Atorvastatin Calcium 40 MG TAB PO SCH (20:21)
[2022-12-16] MEDS: Cefepime 1 GM in Sodium Chloride 0.9% 100 ML IVPB SCH (20:22)
[2022-12-16] MEDS ORDERED: Tuberculin PPD 0.1 ML VIAL I-DERMAL SCH (21:00)
[2022-12-16] MEDS: Insulin Glargine 30 UNITS/0.3 ML VIAL SC SCH (22:03)
[2022-12-17] MEDS: Ipratropium/Albuterol 3 ML NEB NEB SCH ×5 (03:13→20:31)
[2022-12-17 06:05] LABS: Anion Gap 15 mmol/L (10-20); BUN (Urea Nitrogen) 50 mg/dL (7.0-18.7); Calc. Creatinine Clearance 22 mL/min (70-130); Carbon Dioxide 21 mmol/L (22-29); Chloride 105 mmol/L (98-107); Estimated GFR 12; Glucose 110 mg/dL (70-105); Potassium 3.8 mmol/L (3.5-5.1); Sodium 137 mmol/L (136-145)
[2022-12-17] MEDS: Levothyroxine 150 MCG TAB PO SCH (06:21)
[2022-12-17 06:24] LABS: Calcium 6.8 mg/dL (7.8-10.44)
[2022-12-17] MEDS: Saccharomyces boulardii 250 MG CAP PO SCH (08:46)
[2022-12-17] MEDS: NIFEdipine XL 60 MG ER.TAB PO SCH (08:47)
[2022-12-17] MEDS: Icosapent Ethyl 1 GM CAPSULE PO SCH ×2 (08:47→16:46)
[2022-12-17] MEDS: Cholecalciferol 1,000 UNITS (25 MCG) TAB PO SCH (08:48)
[2022-12-17] MEDS: hydrALAZINE 25 MG TAB PO SCH ×3 (08:48→20:08)
[2022-12-17] MEDS: Prazosin HCl 1 MG CAP PO SCH (08:48)
[2022-12-17] MEDS: Heparin 5,000 UNITS/ML VIAL SC SCH ×3 (08:48→20:08)
[2022-12-17] MEDS: lamoTRIgine 100 MG TAB PO SCH (20:08)
[2022-12-17] MEDS: Montelukast Sodium 10 mg Tablet PO SCH (20:08)
[2022-12-17] MEDS: Atorvastatin Calcium 40 MG TAB PO SCH (20:08)
[2022-12-17] MEDS: Lurasidone 20 MG TABLET PO SCH (20:09)
[2022-12-17] MEDS: traZODone HCl 50 MG TAB PO SCH (20:33)
[2022-12-17] MEDS: Calcium Carbonate 500 MG ChewTAB PO PRN (21:22)
[2022-12-17] MEDS: Insulin Glargine 30 UNITS/0.3 ML VIAL SC SCH (21:23)
[2022-12-18] MEDS: Ipratropium/Albuterol 3 ML NEB NEB SCH ×5 (00:46→14:43)
[2022-12-18] MEDS: Calcium Carbonate 500 MG ChewTAB PO PRN (03:36)
[2022-12-18] MEDS ORDERED: Mag-Al 1200 mg/1200 mg/30 ML UDCUP PO SCH (04:15)
[2022-12-18] MEDS: Levothyroxine 150 MCG TAB PO SCH (05:10)
[2022-12-18 06:30] LABS: Anion Gap 14 mmol/L (10-20); BUN (Urea Nitrogen) 25 mg/dL (7.0-18.7); Calc. Creatinine Clearance 33 mL/min (70-130); Calcium 8.3 mg/dL (7.8-10.44); Carbon Dioxide 27 mmol/L (22-29); Chloride 101 mmol/L (98-107); Estimated GFR 19; Glucose 89 mg/dL (70-105); Potassium 3.6 mmol/L (3.5-5.1); Sodium 138 mmol/L (136-145)
[2022-12-18] MEDS: Prazosin HCl 1 MG CAP PO SCH (09:23)
[2022-12-18] MEDS: Cholecalciferol 1,000 UNITS (25 MCG) TAB PO SCH (09:24)
[2022-12-18] MEDS: hydrALAZINE 25 MG TAB PO SCH (09:24)
[2022-12-18] MEDS: Icosapent Ethyl 1 GM CAPSULE PO SCH (09:24)
[2022-12-18] MEDS: NIFEdipine XL 60 MG ER.TAB PO SCH (09:24)
[2022-12-18] MEDS: Saccharomyces boulardii 250 MG CAP PO SCH (09:24)
[2022-12-18] MEDS: Heparin 5,000 UNITS/ML VIAL SC SCH (09:26)
[2022-12-18] MEDS: Epoetin (ESRD) 10,000 UNITS/ML VIAL IVP SCH (12:27)
[2022-12-18] MEDS: Acetaminophen 325 MG TAB PO PRN (12:38)
[2022-12-18 16:39] VITALS: BP 138/66; TEMP 98.2
[2022-12-19] MEDS ORDERED: READ PPD TEST SITE PO SCH (09:00)
== END 2022-12-18 17:22 | disposition home or self-care (01) | DRG 871 ==
LOC: 2SW 15:23
PROVIDERS: ADMIT Hospitalist; ATTEND Internal Medicine
PROC: 3E03329 Introduction of Other Anti-infective into Peripheral Vein, Percutaneous Approach (ICD-10-PCS; 2022-12-13)
PROC: 0JH63XZ Insertion of Tunneled Vascular Access Device into Chest Subcutaneous Tissue and Fascia, Percutaneous Approach (ICD-10-PCS; principal; 2022-12-16)
PROC: 02HV33Z Insertion of Infusion Device into Superior Vena Cava, Percutaneous Approach (ICD-10-PCS; 2022-12-16)
PROC: B548ZZA Ultrasonography of Superior Vena Cava, Guidance (ICD-10-PCS; 2022-12-16)
DX: A41.9 Sepsis, unspecified organism (principal); J18.9 Pneumonia, unspecified organism; J96.01 Acute respiratory failure with hypoxia; N18.6 End stage renal disease; N18.4 Chronic kidney disease, stage 4 (severe); N17.9 Acute kidney failure, unspecified; N25.81 Secondary hyperparathyroidism of renal origin; E87.20 Acidosis, unspecified; I50.32 Chronic diastolic (congestive) heart failure; E11.22 Type 2 diabetes mellitus with diabetic chronic kidney disease; I12.9 Hypertensive chronic kidney disease with stage 1 through stage 4 chronic kidney disease, or unspecified chronic kidney disease; F31.9 Bipolar disorder, unspecified; F43.10 Post-traumatic stress disorder, unspecified; J45.909 Unspecified asthma, uncomplicated; E03.9 Hypothyroidism, unspecified; G25.81 Restless legs syndrome; G40.909 Epilepsy, unspecified, not intractable, without status epilepticus; F17.210 Nicotine dependence, cigarettes, uncomplicated; D63.1 Anemia in chronic kidney disease; E83.51 Hypocalcemia; I08.1 Rheumatic disorders of both mitral and tricuspid valves; E78.5 Hyperlipidemia, unspecified; Z98.890 Other specified postprocedural states; Z90.49 Acquired absence of other specified parts of digestive tract; Z79.899 Other long term (current) drug therapy; Z88.8 Allergy status to other drugs, medicaments and biological substances; Z79.51 Long term (current) use of inhaled steroids; Z89.511 Acquired absence of right leg below knee
CPT/HCPCS: 36415; 36416; 71045; 80048; 80053; 80202; 81001; 82570; 83605; 84145; 84300; 84443; 85025; 86140; 86580; 86704; 87040; 87070; 87081; 87205; 87449; 87899; 90471; 90686; 90935; 93306; 94640; C1752; G0008; G0257; J0171; J0692; J1644; J1815; J1940; J2001; J2250; J2405; J2704; J3370; J3490; J7620; Q4081; S0020

== ENCOUNTER 2022-12-23 13:17 | Outpatient (CLI) | payer OTHER, MEDICAID | END 2022-12-23 13:18 | disposition home or self-care (01) | LOC: RAD 13:17 | PROVIDERS: ATTEND Internal Medicine Nephrology | DX: Z11.1 Encounter for screening for respiratory tuberculosis (principal); J84.9 Interstitial pulmonary disease, unspecified; J98.4 Other disorders of lung | CPT/HCPCS: 71046 ==

== ENCOUNTER 2022-12-23 14:49 | Inpatient (IN) | payer OTHER, MEDICAID ==
[2022-12-23 15:21] LABS: #Eosinphils 0.2 thou/uL (0.0-0.7); #Monocytes 0.5 thou/uL (0.11-0.59); #Neutrophils 12.4 thou/uL (1.40-6.50); %Basophils 0.3 % (0.0-1.0); %Eosinophils 1.2 % (0.0-10.0); %Monocytes 3.1 % (0.0-10.0); %Neutrophils 83.9 % (42.0-75.0); Hematocrit 26.3 % (36.0-47.0); Hemoglobin 8.5 g/dL (12.0-16.0); Mean Corpuscular HGB CONC 32.3 g/dL (32.0-36.0); Mean Corpuscular Hemoglobin 32.3 pg (27.0-31.0); Mean Platelet Volume 10.4 fL (7.4-10.4); Platelet Count 337 10x3/uL (130-400); RBC Distribution Width 14.4 % (11.5-14.5); Red Blood Cell (RBC) Count 2.63 mill/uL (4.20-5.40); White Blood Cell (WBC) Count 14.8 10x3/uL (4.8-10.8)
[2022-12-23 15:55] LABS: ALT (SGPT) 13 U/L (8-55); AST (SGOT) 20 U/L (5-34); Albumin 2.8 g/dL (3.5-5.0); Alkaline Phosphatase 115 U/L (40-110); Anion Gap 14 mmol/L (10-20); BUN (Urea Nitrogen) 36 mg/dL (7.0-18.7); Bilirubin, Total 0.2 mg/dL (0.2-1.2); Calc. Creatinine Clearance 0 mL/min (70-130); Calcium 7.2 mg/dL (7.8-10.44); Carbon Dioxide 25 mmol/L (22-29); Chloride 103 mmol/L (98-107); Estimated GFR 12; Globulin 3.8 g/dL (2.4-3.5); Glucose 98 mg/dL (70-105); Potassium 4.5 mmol/L (3.5-5.1); Protein, Total 6.6 g/dL (6.0-8.3); Sodium 137 mmol/L (136-145)
[2022-12-23] MEDS ORDERED: Ondansetron ODT 4 MG TAB PO PRN (18:56)
[2022-12-23] MEDS ORDERED: Ondansetron PF 4 MG/2 ML Vial IVP PRN (18:56)
[2022-12-23] MEDS ORDERED: Acetaminophen 650 MG Suppository PR PRN (18:56)
[2022-12-23] MEDS ORDERED: Acetaminophen 325 MG TAB PO PRN (18:56)
[2022-12-23] MEDS ORDERED: Albuterol 200 PUFF (6.7GM INHALER) INH PRN (19:47)
[2022-12-23 20:31] LABS: Iron 24 ug/dL (50-170); Iron Binding Capacity, Total 169 mcg/dL (265-497)
[2022-12-23 20:54] VITALS: BMI 26.2
[2022-12-23] MEDS ORDERED: Famotidine 20 MG TAB PO SCH (21:00)
[2022-12-23] MEDS: traZODone HCl 50 MG TAB PO SCH (21:22)
[2022-12-23] MEDS: Prazosin HCl 1 MG CAP PO SCH (21:22)
[2022-12-23] MEDS: Lurasidone 20 MG TABLET PO SCH (21:23)
[2022-12-23] MEDS: Heparin 5,000 UNITS/ML VIAL SC SCH (21:24)
[2022-12-23] MEDS: Atorvastatin Calcium 40 MG TAB PO SCH (21:24)
[2022-12-23] MEDS: Montelukast Sodium 10 mg Tablet PO SCH (21:24)
[2022-12-23] MEDS: hydrALAZINE 25 MG TAB PO SCH (21:24)
[2022-12-23] MEDS: lamoTRIgine 100 MG TAB PO SCH (21:25)
[2022-12-23] MEDS: HYDROcodone/Acetaminophen 5/325 mg Tablet PO PRN (21:31)
[2022-12-23] MEDS: Famotidine 20 MG TAB PO SCH (21:31)
[2022-12-23] MEDS: Insulin Glargine 30 UNITS/0.3 ML VIAL SC SCH ×2 (21:32→21:37)
[2022-12-23] MEDS ORDERED: Iron, Sodium Ferric Gluconate 125 MG in Sodium Chloride 0.9% 100 ML IVPB SCH (22:00)
[2022-12-23] MEDS: Ipratropium Bromide 2.5 ml Neb NEB SCH (23:38)
[2022-12-24] MEDS ORDERED: Nicotine 14 MG PATCH TD SCH (00:15)
[2022-12-24 05:09] LABS: #Basophils 0.1 thou/uL (0.0-0.2); #Eosinphils 0.3 thou/uL (0.0-0.7); #Monocytes 0.4 thou/uL (0.11-0.59); #Neutrophils 7.6 thou/uL (1.40-6.50); %Basophils 0.5 % (0.0-1.0); %Eosinophils 2.5 % (0.0-10.0); %Lymphocytes 18.9 % (21.0-51.0); %Monocytes 4.2 % (0.0-10.0); %Neutrophils 73.7 % (42.0-75.0); Hematocrit 24.3 % (36.0-47.0); Hemoglobin 7.9 g/dL (12.0-16.0); Mean Corpuscular HGB CONC 32.5 g/dL (32.0-36.0); Mean Corpuscular Hemoglobin 32.1 pg (27.0-31.0); Mean Corpuscular Volume 98.8 fl (78.0-98.0); Mean Platelet Volume 10.9 fL (7.4-10.4); Platelet Count 280 10x3/uL (130-400); Red Blood Cell (RBC) Count 2.46 mill/uL (4.20-5.40); White Blood Cell (WBC) Count 10.3 10x3/uL (4.8-10.8)
[2022-12-24] MEDS: Levothyroxine Sodium 100 MCG TAB PO SCH (05:28)
[2022-12-24 05:29] LABS: Anion Gap 13 mmol/L (10-20); BUN (Urea Nitrogen) 34 mg/dL (7.0-18.7); Calc. Creatinine Clearance 23 mL/min (70-130); Carbon Dioxide 23 mmol/L (22-29); Chloride 106 mmol/L (98-107); Estimated GFR 13; Glucose 81 mg/dL (70-105); Potassium 3.9 mmol/L (3.5-5.1); Sodium 138 mmol/L (136-145)
[2022-12-24] MEDS: HYDROcodone/Acetaminophen 5/325 mg Tablet PO PRN ×2 (05:32→20:05)
[2022-12-24 05:42] LABS: Calcium 6.5 mg/dL (7.8-10.44)
[2022-12-24 07:28] LABS: HBSAB Concentration Less than 8.00 mIU/mL; HBSAg Index 0.19 S/CO (0-0.99); Hep B Core Total Ab Non-Reactive (NonReactive); Hep B Core Total Index 0.16 S/CO (0-0.79); Hep B Surf AB Non-Reactive (NonReactive); Hep B Surf Ag Non-Reactive S/CO (NonReactive); Hep C IgG Ab Non-Reactive S/CO (NonReactive); Hep C Index 0.08 S/CO (0-0.79)
[2022-12-24] MEDS: Ipratropium Bromide 2.5 ml Neb NEB SCH ×4 (07:51→22:20)
[2022-12-24] MEDS ORDERED: Heparin 10,000 UNITS/ 10 ML VIAL ONE (08:23)
[2022-12-24] MEDS: Cholecalciferol 1,000 UNITS (25 MCG) TAB PO SCH (08:44)
[2022-12-24] MEDS: NIFEdipine XL 60 MG ER.TAB PO SCH (08:44)
[2022-12-24] MEDS: hydrALAZINE 25 MG TAB PO SCH ×3 (08:44→20:03)
[2022-12-24] MEDS: Heparin 5,000 UNITS/ML VIAL SC SCH ×3 (08:44→20:06)
[2022-12-24] MEDS: Ferrous Sulfate 325 MG TAB PO SCH (08:44)
[2022-12-24] MEDS ORDERED: Epoetin (ESRD) 10,000 UNITS/ML VIAL SC SCH (09:00)
[2022-12-24] MEDS: Atorvastatin Calcium 40 MG TAB PO SCH (20:03)
[2022-12-24] MEDS: traZODone HCl 50 MG TAB PO SCH (20:04)
[2022-12-24] MEDS: Prazosin HCl 1 MG CAP PO SCH (20:05)
[2022-12-24] MEDS: lamoTRIgine 100 MG TAB PO SCH (20:05)
[2022-12-24] MEDS: Insulin Glargine 30 UNITS/0.3 ML VIAL SC SCH (20:06)
[2022-12-24] MEDS: Montelukast Sodium 10 mg Tablet PO SCH (20:06)
[2022-12-24] MEDS: Lurasidone 20 MG TABLET PO SCH (20:06)
[2022-12-25] MEDS: Levothyroxine Sodium 100 MCG TAB PO SCH (05:38)
[2022-12-25] MEDS: HYDROcodone/Acetaminophen 5/325 mg Tablet PO PRN ×2 (05:44→20:27)
[2022-12-25 06:06] LABS: #Basophils 0.1 thou/uL (0.0-0.2); #Eosinphils 0.2 thou/uL (0.0-0.7); #Monocytes 0.5 thou/uL (0.11-0.59); #Neutrophils 5.2 thou/uL (1.40-6.50); %Basophils 0.8 % (0.0-1.0); %Eosinophils 2.2 % (0.0-10.0); %Lymphocytes 24.2 % (21.0-51.0); %Monocytes 6.2 % (0.0-10.0); %Neutrophils 66.5 % (42.0-75.0); Hematocrit 25.5 % (36.0-47.0); Hemoglobin 8.2 g/dL (12.0-16.0); Mean Corpuscular HGB CONC 32.2 g/dL (32.0-36.0); Mean Corpuscular Hemoglobin 31.8 pg (27.0-31.0); Mean Corpuscular Volume 98.8 fl (78.0-98.0); Mean Platelet Volume 10.8 fL (7.4-10.4); Platelet Count 316 10x3/uL (130-400); RBC Distribution Width 13.9 % (11.5-14.5); Red Blood Cell (RBC) Count 2.58 mill/uL (4.20-5.40); White Blood Cell (WBC) Count 7.8 10x3/uL (4.8-10.8)
[2022-12-25 06:37] LABS: ALT (SGPT) 12 U/L (8-55); AST (SGOT) 29 U/L (5-34); Albumin 2.6 g/dL (3.5-5.0); Alkaline Phosphatase 108 U/L (40-110); Anion Gap 11 mmol/L (10-20); BUN (Urea Nitrogen) 11 mg/dL (7.0-18.7); Bilirubin, Total 0.3 mg/dL (0.2-1.2); Calc. Creatinine Clearance 42 mL/min (70-130); Calcium 7.2 mg/dL (7.8-10.44); Carbon Dioxide 30 mmol/L (22-29); Chloride 101 mmol/L (98-107); Estimated GFR 27; Globulin 3.8 g/dL (2.4-3.5); Glucose 83 mg/dL (70-105); Potassium 3.6 mmol/L (3.5-5.1); Protein, Total 6.4 g/dL (6.0-8.3); Sodium 138 mmol/L (136-145)
[2022-12-25] MEDS: Ipratropium Bromide 2.5 ml Neb NEB SCH ×4 (07:31→21:57)
[2022-12-25] MEDS: hydrALAZINE 25 MG TAB PO SCH ×3 (10:33→20:28)
[2022-12-25] MEDS: Ferrous Sulfate 325 MG TAB PO SCH (10:33)
[2022-12-25] MEDS: Heparin 5,000 UNITS/ML VIAL SC SCH ×3 (10:33→20:29)
[2022-12-25] MEDS: Cholecalciferol 1,000 UNITS (25 MCG) TAB PO SCH (10:33)
[2022-12-25] MEDS: NIFEdipine XL 60 MG ER.TAB PO SCH (10:34)
[2022-12-25] MEDS: Lurasidone 20 MG TABLET PO SCH (20:26)
[2022-12-25] MEDS: traZODone HCl 50 MG TAB PO SCH (20:27)
[2022-12-25] MEDS: lamoTRIgine 100 MG TAB PO SCH (20:27)
[2022-12-25] MEDS: Montelukast Sodium 10 mg Tablet PO SCH (20:27)
[2022-12-25] MEDS: Atorvastatin Calcium 40 MG TAB PO SCH (20:27)
[2022-12-25] MEDS: Famotidine 20 MG TAB PO SCH (20:34)
[2022-12-25] MEDS: Prazosin HCl 1 MG CAP PO SCH (20:43)
[2022-12-25] MEDS: Insulin Glargine 30 UNITS/0.3 ML VIAL SC SCH (21:12)
[2022-12-26] MEDS: Levothyroxine Sodium 100 MCG TAB PO SCH (05:34)
[2022-12-26] MEDS: Ipratropium Bromide 2.5 ml Neb NEB SCH ×3 (06:43→18:59)
[2022-12-26] MEDS: hydrALAZINE 25 MG TAB PO SCH ×3 (08:36→20:44)
[2022-12-26] MEDS: NIFEdipine XL 60 MG ER.TAB PO SCH (08:36)
[2022-12-26] MEDS: Ferrous Sulfate 325 MG TAB PO SCH (08:36)
[2022-12-26] MEDS: Cholecalciferol 1,000 UNITS (25 MCG) TAB PO SCH (08:36)
[2022-12-26] MEDS: Heparin 5,000 UNITS/ML VIAL SC SCH ×3 (08:36→20:46)
[2022-12-26 18:36] LABS: QuantiFERON-TB Gold Plus Negative (Negative)
[2022-12-26] MEDS: lamoTRIgine 100 MG TAB PO SCH (20:43)
[2022-12-26] MEDS: traZODone HCl 50 MG TAB PO SCH (20:43)
[2022-12-26] MEDS: Atorvastatin Calcium 40 MG TAB PO SCH (20:44)
[2022-12-26] MEDS: Montelukast Sodium 10 mg Tablet PO SCH (20:44)
[2022-12-26] MEDS: Prazosin HCl 1 MG CAP PO SCH (20:45)
[2022-12-26] MEDS: Insulin Glargine 30 UNITS/0.3 ML VIAL SC SCH (21:00)
[2022-12-26] MEDS ORDERED: Mag-Al 1200 mg/1200 mg/30 ML UDCUP PO PRN (21:02)
[2022-12-26] MEDS: Lurasidone 20 MG TABLET PO SCH (21:23)
[2022-12-26] MEDS: HYDROcodone/Acetaminophen 5/325 mg Tablet PO PRN (21:26)
[2022-12-27] MEDS: Ipratropium Bromide 2.5 ml Neb NEB SCH ×3 (01:38→12:28)
[2022-12-27] MEDS: Levothyroxine Sodium 100 MCG TAB PO SCH (05:28)
[2022-12-27 07:26] VITALS: BP 157/81; TEMP 98.8
[2022-12-27] MEDS: Ferrous Sulfate 325 MG TAB PO SCH (08:53)
[2022-12-27] MEDS: hydrALAZINE 25 MG TAB PO SCH ×2 (08:54→14:23)
[2022-12-27] MEDS: Cholecalciferol 1,000 UNITS (25 MCG) TAB PO SCH (08:54)
[2022-12-27] MEDS: NIFEdipine XL 60 MG ER.TAB PO SCH (08:54)
[2022-12-27] MEDS: Heparin 5,000 UNITS/ML VIAL SC SCH ×2 (10:02→14:23)
[2022-12-27] MEDS ORDERED: Heparin 10,000 UNITS/ 10 ML VIAL ONE (11:26)
== END 2022-12-27 16:35 | disposition home or self-care (01) | DRG 682 ==
LOC: ERS 14:49 → T4-B 18:20 → OBSVTOIN 12-24 14:21
PROVIDERS: ADMIT Internal Medicine; ATTEND Internal Medicine
DX: I12.0 Hypertensive chronic kidney disease with stage 5 chronic kidney disease or end stage renal disease (principal); N18.6 End stage renal disease; J84.9 Interstitial pulmonary disease, unspecified; Z99.2 Dependence on renal dialysis; D72.829 Elevated white blood cell count, unspecified; E11.22 Type 2 diabetes mellitus with diabetic chronic kidney disease; J45.909 Unspecified asthma, uncomplicated; D53.9 Nutritional anemia, unspecified; E78.5 Hyperlipidemia, unspecified; E03.9 Hypothyroidism, unspecified; Z79.4 Long term (current) use of insulin; Z79.899 Other long term (current) drug therapy; R19.7 Diarrhea, unspecified; D63.1 Anemia in chronic kidney disease; Z90.49 Acquired absence of other specified parts of digestive tract; Z90.89 Acquired absence of other organs; Z98.890 Other specified postprocedural states; G40.909 Epilepsy, unspecified, not intractable, without status epilepticus; Z89.511 Acquired absence of right leg below knee; Z91.048 Other nonmedicinal substance allergy status; E11.40 Type 2 diabetes mellitus with diabetic neuropathy, unspecified; F31.9 Bipolar disorder, unspecified; J98.4 Other disorders of lung
CPT/HCPCS: 36415; 36416; 71046; 80048; 80053; 82607; 82728; 83540; 83550; 83880; 85025; 86480; 86704; 87324; 87449; 93005; 94640; 96372; 96374; G0378; J1644; J2916; J3490; Q4081

== ENCOUNTER 2023-07-30 14:57 | Outpatient (CLI) | payer OTHER, MEDICAID | END 2023-07-30 14:58 | disposition home or self-care (01) | LOC: BICRAD 14:57 | PROVIDERS: ATTEND Internal Medicine Nephrology | DX: I50.1 Left ventricular failure, unspecified (principal) | CPT/HCPCS: 71046 ==

== ENCOUNTER 2023-10-20 10:40 | Inpatient (IN) | payer OTHER, MEDICAID ==
[2023-10-20] MEDS ORDERED: Morphine 4 MG/ML VIAL ONE (12:54)
[2023-10-20] MEDS ORDERED: Ondansetron PF 4 MG/2 ML Vial ONE (12:55)
[2023-10-20 13:14] LABS: Bilirubin Negative (Negative); Blood, Urine Negative (Negative); CAUTI Indications for Culture Dysuria,urgency,freq; Clarity Clear (Clear); Glucose, Urine (Dipstick) Normal (Negative); Ketone, Urine Negative (Negative); Leukocyte 25 Leu/uL (Negative); Nitrite Negative (Negative); Protein, Urine (Dipstick) 100 mg/dL (Neg-Trace); RBC/HPF 0-3 HPF (0-3); Specific Gravity, Urine 1.008 (1.002-1.036); Urobilinogen Normal mg/dL (Less than 2); pH, Urine 7.5 (5.0-9.0)
[2023-10-20 13:18] LABS: Bacteria/HPF 1+ HPF (None Seen)
[2023-10-20 13:20] LABS: Urine Culture Reflex No No
[2023-10-20 13:35] LABS: #Basophils 0.05 10x3/uL (0.0-0.2); %Basophils 0.3 % (0.0-1.0); %Eosinophils 1.7 % (0.0-10.0); %Lymphocytes 9.8 % (21.0-51.0); %Monocytes 6.3 % (0.0-10.0); %Neutrophils 81.4 % (42.0-75.0); Hematocrit 33.2 % (36.0-47.0); Hemoglobin 11.6 g/dL (12.0-16.0); Mean Corpuscular HGB CONC 34.9 g/dL (32.0-36.0); Mean Corpuscular Hemoglobin 34.6 pg (27.0-31.0); Mean Corpuscular Volume 99.1 fL (78.0-98.0); Mean Platelet Volume 11.7 fL (7.4-10.4); Platelet Count 206 10x3/uL (130-400); RBC Distribution Width 13.1 % (11.5-14.5); Red Blood Cell (RBC) Count 3.35 mill/uL (4.20-5.40)
[2023-10-20 13:48] LABS: Troponin I 0.062 ng/mL (< 0.028)
[2023-10-20 13:52] LABS: ALT (SGPT) 16 U/L (8-55); AST (SGOT) 18 U/L (5-34); Albumin 2.8 g/dL (3.5-5.0); Alkaline Phosphatase 96 U/L (40-110); Anion Gap 11 mmol/L (10-20); BUN (Urea Nitrogen) 42 mg/dL (7.0-18.7); Bilirubin, Total 0.3 mg/dL (0.2-1.2); Calc. Creatinine Clearance 0 mL/min (70-130); Calcium 11.6 mg/dL (7.8-10.44); Carbon Dioxide 41 mmol/L (22-29); Chloride 83 mmol/L (98-107); Estimated GFR 8; Globulin 4.1 g/dL (2.4-3.5); Glucose 133 mg/dL (70-105); Lipase 266 U/L (8-78); Potassium 3.3 mmol/L (3.5-5.1); Protein, Total 6.9 g/dL (6.0-8.3); Sodium 132 mmol/L (136-145)
[2023-10-20] MEDS ORDERED: HYDROmorphone 0.5 MG/0.5 ML SYRINGE ONE (18:20)
[2023-10-20 18:31] LABS: Troponin I 0.063 ng/mL (< 0.028)
[2023-10-20] MEDS ORDERED: Senokot S 8.6-50 MG TAB PO PRN (19:11)
[2023-10-20 20:34] LABS: Amphetamine Not Detected (NotDetected); Barbiturates Screen Not Detected (NotDetected); Benzodiazepine Screen Not Detected (NotDetected); Cocaine Metabolite Screen Not Detected (NotDetected); Methadone Not Detected (NotDetected); Methamphetamine Not Detected (NotDetected); Opiate Screen Not Detected (NotDetected); Oxycodone Screen Not Detected (NotDetected); Phencyclidine (PCP) Not Detected (NotDetected); THC/Cannabinoid Screen Detected (NotDetected); Tricyclic Screen Not Detected (NotDetected)
[2023-10-20 20:41] VITALS: BMI 21.8
[2023-10-20] MEDS: Potassium Chloride 20 MEQ TAB PO SCH (20:51)
[2023-10-20] MEDS: Pantoprazole 40 MG VIAL IVP SCH (20:52)
[2023-10-20] MEDS: Heparin 5,000 UNITS/ML VIAL SC SCH (20:52)
[2023-10-20] MEDS: Lactated Ringer's 1,000 ML IV SCH ×2 (20:55→21:12)
[2023-10-20 22:47] LABS: Troponin I 0.069 ng/mL (< 0.028)
[2023-10-20] MEDS: Morphine 2 MG/ML VIAL SLOW IVP SCH (23:10)
[2023-10-21 00:22] LABS: Influenza A by NAA Not Detected (NotDetected); Influenza B by NAA Not Detected (NotDetected); SARS-CoV-2 NAA Rapid Test Not Detected (NotDetected)
[2023-10-21] MEDS: Ipratropium Bromide 2.5 ml Neb NEB SCH (00:30)
[2023-10-21 01:05] LABS: Cardiac Risk 2.6 (Less than 4.5)
[2023-10-21] MEDS: Morphine 2 MG/ML VIAL SLOW IVP SCH ×2 (01:48→04:52)
[2023-10-21] MEDS: Lidocaine 2% Viscous Solution 10 ML, Aluminum & Magnesium Hydroxide 30 ML SSW SCH (01:49)
[2023-10-21] MEDS: Ondansetron ODT 4 MG TAB PO PRN (01:53)
[2023-10-21] MEDS ORDERED: Morphine 2 MG/ML VIAL SLOW IVP PRN (02:00)
[2023-10-21] MEDS: Levothyroxine Sodium 100 MCG TAB PO SCH (05:24)
[2023-10-21] MEDS: Promethazine HCl 12.5 MG in Sodium Chloride 0.9% 50 ML IVPB PRN (05:27)
[2023-10-21 05:50] LABS: #Basophils 0.03 10x3/uL (0.0-0.2); %Basophils 0.3 % (0.0-1.0); %Eosinophils 2.6 % (0.0-10.0); %Lymphocytes 18.8 % (21.0-51.0); %Monocytes 6.6 % (0.0-10.0); %Neutrophils 71.2 % (42.0-75.0); Hematocrit 33.2 % (36.0-47.0); Hemoglobin 11.1 g/dL (12.0-16.0); Mean Corpuscular HGB CONC 33.4 g/dL (32.0-36.0); Mean Corpuscular Volume 101.8 fL (78.0-98.0); Mean Platelet Volume 11.7 fL (7.4-10.4); Platelet Count 200 10x3/uL (130-400); RBC Distribution Width 13.2 % (11.5-14.5); Red Blood Cell (RBC) Count 3.26 mill/uL (4.20-5.40)
[2023-10-21 06:17] LABS: Anion Gap 12 mmol/L (10-20); BUN (Urea Nitrogen) 38 mg/dL (7.0-18.7); Calc. Creatinine Clearance 15 mL/min (70-130); Calcium 10.5 mg/dL (7.8-10.44); Carbon Dioxide 35 mmol/L (22-29); Chloride 88 mmol/L (98-107); Estimated GFR 10; Glucose 109 mg/dL (70-105); Potassium 3.5 mmol/L (3.5-5.1); Sodium 131 mmol/L (136-145)
[2023-10-21] MEDS: Mometasone 200 MCG/Formoterol 5 MCG 120 PUFF INHALER INH SCH (07:01)
[2023-10-21] MEDS ORDERED: Heparin 10,000 UNITS/ 10 ML VIAL ONE (09:15)
[2023-10-21] MEDS: lamoTRIgine 25 MG TAB PO SCH (09:23)
[2023-10-21] MEDS: Icosapent Ethyl 1 GM CAPSULE PO SCH (09:23)
[2023-10-21] MEDS: Losartan 25 MG TAB PO SCH (09:23)
[2023-10-21] MEDS: Potassium Chloride 20 MEQ TAB PO SCH ×3 (09:23→13:22)
[2023-10-21] MEDS: Folic Acid/Vit B Comp W-C PO SCH (09:23)
[2023-10-21] MEDS ORDERED: Iopamidol-370 76% 500 ML MDV (1 ML CHARGE) ONE (09:29)
[2023-10-21] MEDS ORDERED: Promethazine 25 MG TAB PO PRN (11:10)
[2023-10-21 11:46] VITALS: BMI 21.8
[2023-10-21] MEDS: Morphine 4 MG/ML VIAL SLOW IVP PRN (11:56)
[2023-10-21] MEDS: hydrALAZINE 20 MG/ML VIAL SLOW IVP SCH (14:19)
[2023-10-21] MEDS ORDERED: hydrALAZINE 20 MG/ML VIAL SLOW IVP PRN (15:11)
[2023-10-21] MEDS: Sevelamer Carbonate 800 MG TAB PO SCH (16:22)
[2023-10-21] MEDS: NIFEdipine XL 30 MG ER.TAB PO SCH ×2 (16:22→16:23)
[2023-10-21] MEDS: Sucralfate 1 GM/10 ML UDCUP PO SCH (16:23)
[2023-10-21] MEDS: fentaNYL 50 mcg/mL 1 mL Vial SLOW IVP PRN (16:23)
[2023-10-21] MEDS: Prazosin HCl 1 MG CAP PO SCH (21:01)
[2023-10-21] MEDS: traZODone HCl 150 MG TAB PO SCH (21:02)
[2023-10-21] MEDS: Atorvastatin Calcium 40 MG TAB PO SCH (21:02)
[2023-10-21] MEDS: Lurasidone 20 MG TABLET PO SCH (21:25)
[2023-10-22] MEDS: Lurasidone 40 MG TAB PO SCH (03:15)
[2023-10-22 06:03] LABS: #Basophils 0.04 10x3/uL (0.0-0.2); %Basophils 0.5 % (0.0-1.0); %Eosinophils 3.5 % (0.0-10.0); %Monocytes 6.9 % (0.0-10.0); %Neutrophils 56.5 % (42.0-75.0); Anion Gap 11 mmol/L (10-20); BUN (Urea Nitrogen) 29 mg/dL (7.0-18.7); Calc. Creatinine Clearance 17 mL/min (70-130); Calcium 9.5 mg/dL (7.8-10.44); Carbon Dioxide 32 mmol/L (22-29); Chloride 91 mmol/L (98-107); Complement-C3 81 mg/dL (83-193); Complement-C4 40 mg/dL (15-57); Estimated GFR 12; Glucose 104 mg/dL (70-105); Hematocrit 32.2 % (36.0-47.0); Hemoglobin 11.1 g/dL (12.0-16.0); Mean Corpuscular HGB CONC 34.5 g/dL (32.0-36.0); Mean Corpuscular Hemoglobin 33.8 pg (27.0-31.0); Mean Corpuscular Volume 98.2 fL (78.0-98.0); Mean Platelet Volume 11.8 fL (7.4-10.4); Platelet Count 193 10x3/uL (130-400); Potassium 3.3 mmol/L (3.5-5.1); RBC Distribution Width 13.2 % (11.5-14.5); Red Blood Cell (RBC) Count 3.28 mill/uL (4.20-5.40); Sodium 131 mmol/L (136-145)
[2023-10-22 07:11] LABS: Hep B Core Total Index 0.16 S/CO (0-0.79)
[2023-10-22 07:26] LABS: Hep B Core Total Ab NONREACTIVE (NonReactive); Hep B Surf AB REACTIVE (NonReactive); Hep B Surf Ag NONREACTIVE S/CO (NonReactive)
[2023-10-22] MEDS: Potassium Chloride 20 MEQ TAB PO SCH (08:44)
[2023-10-22] MEDS: Acetaminophen 325 MG TAB PO PRN (09:32)
[2023-10-22 10:30] LABS: HBSAB Concentration 7241.18 mIU/mL
[2023-10-22] MEDS ORDERED: Heparin 1,000 UNITS/ML VIAL FS SCH (11:30)
[2023-10-22 16:54] VITALS: BP 110/59; TEMP 98.3
[2023-10-22] MEDS ORDERED: Lurasidone 20 MG TABLET PO SCH (21:00)
[2023-10-24 11:08] LABS: ANA Symphony (Qualitative) Negative (Negative); ANA Symphony (Quantitative) 0.2 Ratio (< 0.7 Negative)
[2023-10-24 20:13] LABS: Glomerular Basmt Membrane ABS Less than 0.2 units (0.0-0.9)
[2023-10-27 15:14] LABS: Cytoplasmic (C-ANCA) <1:20 titer (Neg:<1:20); Myeloperoxidase AutoAbs <0.2 units (0.0-0.9); Perinuclear (P-ANCA) <1:20 titer (Neg:<1:20); Proteinase-3 AutoAbs Less than 0.2 units (0.0-0.9)
== END 2023-10-22 17:19 | disposition home or self-care (01) | DRG 299 ==
LOC: ERS 10:40 → 2NO 18:03 → OBSVTOIN 10-22 10:56
PROVIDERS: ADMIT Emergency Medicine; ATTEND Emergency Medicine
DX: I77.89 Other specified disorders of arteries and arterioles (principal); K85.90 Acute pancreatitis without necrosis or infection, unspecified; N18.6 End stage renal disease; I12.0 Hypertensive chronic kidney disease with stage 5 chronic kidney disease or end stage renal disease; E87.1 Hypo-osmolality and hyponatremia; E11.22 Type 2 diabetes mellitus with diabetic chronic kidney disease; F17.210 Nicotine dependence, cigarettes, uncomplicated; E87.6 Hypokalemia; E11.40 Type 2 diabetes mellitus with diabetic neuropathy, unspecified; E86.0 Dehydration; D72.829 Elevated white blood cell count, unspecified; D63.8 Anemia in other chronic diseases classified elsewhere; E88.09 Other disorders of plasma-protein metabolism, not elsewhere classified; F32.A Depression, unspecified; K21.9 Gastro-esophageal reflux disease without esophagitis; F41.9 Anxiety disorder, unspecified; E89.0 Postprocedural hypothyroidism; Z99.2 Dependence on renal dialysis; Z79.899 Other long term (current) drug therapy; Z79.4 Long term (current) use of insulin; Z79.890 Hormone replacement therapy; Z79.51 Long term (current) use of inhaled steroids; Z91.09 Other allergy status, other than to drugs and biological substances; Z90.49 Acquired absence of other specified parts of digestive tract
CPT/HCPCS: 36415; 36416; 74177; 80048; 80053; 80061; 80306; 81001; 82595; 83516; 83690; 84484; 85025; 86037; 86038; 86141; 86160; 86225; 86704; 86706; 87340; 90945; 93005; 94640; 96372; 96374; 96375; 96376; G0257; G0378; J0360; J1170; J1644; J2272; J2405; J2470; J2550; J3010; J7120; J7644; Q0162; Q9967

== ENCOUNTER 2023-11-13 11:45 | Day surgery (SDC) | payer OTHER, MEDICAID ==
[2023-11-12 15:00] VITALS: BMI 22.1
[2023-11-13] MEDS ORDERED: PROPOFOL 20 ML ONE ×2 (14:43→15:19)
[2023-11-13] MEDS ORDERED: PHENYLEPHRINE-NS 100 MCG/ML 10 ML SYRINGE ONE (14:43)
[2023-11-13] MEDS ORDERED: Lidocaine 1% PF 5 ML VIAL ONE (14:43)
[2023-11-13] MEDS ORDERED: fentaNYL 50 mcg/mL 1 mL Vial ONE (15:13)
== END 2023-11-13 16:29 | disposition home or self-care (01) ==
LOC: SDC 11:45
PROVIDERS: ATTEND Internal Medicine Gastroenterology
PROC: 0DJ08ZZ Inspection of Upper Intestinal Tract, Via Natural or Artificial Opening Endoscopic (ICD-10-PCS; principal; 2023-11-13)
PROC: 0DJD8ZZ Inspection of Lower Intestinal Tract, Via Natural or Artificial Opening Endoscopic (ICD-10-PCS; 2023-11-13)
DX: K64.8 Other hemorrhoids (principal); K21.9 Gastro-esophageal reflux disease without esophagitis; K59.00 Constipation, unspecified; E11.22 Type 2 diabetes mellitus with diabetic chronic kidney disease; I12.0 Hypertensive chronic kidney disease with stage 5 chronic kidney disease or end stage renal disease; N18.6 End stage renal disease; J45.909 Unspecified asthma, uncomplicated; F41.9 Anxiety disorder, unspecified; F32.A Depression, unspecified; E78.00 Pure hypercholesterolemia, unspecified; F17.210 Nicotine dependence, cigarettes, uncomplicated; Z79.4 Long term (current) use of insulin; Z79.899 Other long term (current) drug therapy; Z91.048 Other nonmedicinal substance allergy status
CPT/HCPCS: 43235; 45378; 82962; J2704; J3010; 36416

== ENCOUNTER 2023-12-27 15:33 | Emergency (ER) | payer OTHER, MEDICAID ==
[2023-12-27 17:41] LABS: #Basophils 0.08 10x3/uL (0.0-0.2); %Basophils 0.7 % (0.0-1.0); %Eosinophils 2.9 % (0.0-10.0); %Monocytes 7.2 % (0.0-10.0); Hemoglobin 11.8 g/dL (12.0-16.0); Mean Corpuscular HGB CONC 32.8 g/dL (32.0-36.0); Mean Corpuscular Hemoglobin 33.2 pg (27.0-31.0); Mean Corpuscular Volume 101.4 fL (78.0-98.0); Mean Platelet Volume 11.1 fL (7.4-10.4); Platelet Count 221 10x3/uL (130-400); RBC Distribution Width 12.7 % (11.5-14.5); Red Blood Cell (RBC) Count 3.55 mill/uL (4.20-5.40)
[2023-12-27 18:02] LABS: ALT (SGPT) 18 U/L (8-55); AST (SGOT) 13 U/L (5-34); Albumin 2.9 g/dL (3.5-5.0); Alkaline Phosphatase 97 U/L (40-110); Anion Gap 17 mmol/L (10-20); BUN (Urea Nitrogen) 57 mg/dL (7.0-18.7); Bilirubin, Total 0.2 mg/dL (0.2-1.2); Calc. Creatinine Clearance 0 mL/min (70-130); Calcium 8.9 mg/dL (7.8-10.44); Carbon Dioxide 26 mmol/L (22-29); Chloride 102 mmol/L (98-107); Estimated GFR 9; Globulin 4.1 g/dL (2.4-3.5); Glucose 121 mg/dL (70-105); Sodium 141 mmol/L (136-145)
== END 2023-12-27 18:53 | disposition home or self-care (01) ==
LOC: ERS 15:33
DX: M53.3 Sacrococcygeal disorders, not elsewhere classified (principal); J45.909 Unspecified asthma, uncomplicated; D64.9 Anemia, unspecified; E11.40 Type 2 diabetes mellitus with diabetic neuropathy, unspecified; R29.91 Unspecified symptoms and signs involving the musculoskeletal system; I12.9 Hypertensive chronic kidney disease with stage 1 through stage 4 chronic kidney disease, or unspecified chronic kidney disease; E11.22 Type 2 diabetes mellitus with diabetic chronic kidney disease; N18.9 Chronic kidney disease, unspecified; F17.200 Nicotine dependence, unspecified, uncomplicated; Z89.519 Acquired absence of unspecified leg below knee; Z99.2 Dependence on renal dialysis; Z79.899 Other long term (current) drug therapy
CPT/HCPCS: 36415; 74176; 80053; 85025

== ENCOUNTER 2024-02-09 08:09 | Outpatient (CLI) | payer OTHER | END 2024-02-09 08:10 | disposition home or self-care (01) | LOC: NM 08:09 | PROVIDERS: ATTEND Physician Assistant Medical | DX: K21.9 Gastro-esophageal reflux disease without esophagitis (principal); E11.9 Type 2 diabetes mellitus without complications; R11.2 Nausea with vomiting, unspecified; R68.81 Early satiety; K31.84 Gastroparesis | CPT/HCPCS: 78264; A9541 ==

== ENCOUNTER 2024-09-29 10:57 | Outpatient (CLI) | payer OTHER, MEDICAID ==
[2024-09-29 13:13] LABS: #Basophils 0.10 10x3/uL (0.0-0.2); #Eosinophils 0.41 10x3/uL (0.0-0.7); #Monocytes 0.63 10x3/uL (0.11-0.59); #Neutrophils 9.15 10x3/uL (1.40-6.50); %Basophils 0.8 % (0.0-1.0); %Eosinophils 3.4 % (0.0-10.0); %Lymphocytes 14.0 % (21.0-51.0); %Monocytes 5.2 % (0.0-10.0); %Neutrophils 76.2 % (42.0-75.0); Hematocrit 36.2 % (36.0-47.0); Hemoglobin 11.6 g/dL (12.0-16.0); Mean Corpuscular Hemoglobin 30.8 pg (27.0-31.0); Mean Corpuscular Volume 96.0 fL (78.0-98.0); Platelet Count 257 10x3/uL (130-400); Red Blood Cell (RBC) Count 3.77 mill/uL (4.20-5.40); White Blood Cell (WBC) Count 12.02 10x3/uL (4.8-10.8)
[2024-09-29 13:26] LABS: Anion Gap 17 mmol/L (10-20); BUN (Urea Nitrogen) 79 mg/dL (7.0-18.7); Calc. Creatinine Clearance 0 mL/min (70-130); Calcium 8.8 mg/dL (7.8-10.44); Carbon Dioxide 25 mmol/L (22-29); Chloride 97 mmol/L (98-107); Glucose 159 mg/dL (70-105); Potassium 3.6 mmol/L (3.5-5.1); Sodium 135 mmol/L (136-145)
[2024-09-29 13:42] LABS: BHCG - Serum Negative (NEGATIVE); Pregs Control Background? CLEAR/WHITE (CLR/WHITE); Pregs Control Bar Appear? YES (CONTROL BAR)
== END 2024-09-29 10:58 | disposition home or self-care (01) ==
LOC: LABBT 10:57
PROVIDERS: ATTEND Neurological Surgery
DX: Z01.818 Encounter for other preprocedural examination (principal); M48.062 Spinal stenosis, lumbar region with neurogenic claudication
CPT/HCPCS: 80048; 84703; 85025; 93005; 93010

== ENCOUNTER 2024-10-04 05:59 | Day surgery (SDC) | payer OTHER, MEDICAID ==
[2024-09-29 11:41] VITALS: BMI 23.6
[2024-10-04] MEDS ORDERED: CEFAZOLIN 2 GM VIAL ONE (07:00)
[2024-10-04] MEDS ORDERED: Scopolamine 1 mg/72 hour Patch ONE (07:04)
[2024-10-04] MEDS ORDERED: Lidocaine 1% PF 5 ML VIAL ONE (07:11)
[2024-10-04] MEDS ORDERED: PHENYLEPHRINE-NS 100 MCG/ML 10 ML SYRINGE ONE (07:11)
[2024-10-04] MEDS ORDERED: Rocuronium Bromide 10 MG/ML (10ML VIAL) ONE (07:11)
[2024-10-04] MEDS ORDERED: Ondansetron PF 4 MG/2 ML Vial ONE (07:11)
[2024-10-04] MEDS ORDERED: fentaNYL PF 100 MCG/2 ML SYRINGE ONE ×2 (07:11→08:53)
[2024-10-04] MEDS ORDERED: PROPOFOL 20 ML ONE (07:12)
[2024-10-04] MEDS ORDERED: Lidocaine 2% 6 ML (Jelly) SYR ONE (07:19)
[2024-10-04] MEDS ORDERED: Albuterol HFA (OR) 200 PUFF INH ONE (07:40)
[2024-10-04] MEDS ORDERED: SUGAMMADEX SODIUM 200 MG/2 ML VIAL ONE (08:31)
[2024-10-04] MEDS ORDERED: HYDROmorphone 0.5 MG/0.5 ML SYRINGE ONE (09:44)
== END 2024-10-04 11:58 | disposition home or self-care (01) ==
LOC: SDC 05:59
PROVIDERS: ATTEND Neurological Surgery
DX: M48.061 Spinal stenosis, lumbar region without neurogenic claudication (principal); I12.0 Hypertensive chronic kidney disease with stage 5 chronic kidney disease or end stage renal disease; N18.6 End stage renal disease; E11.22 Type 2 diabetes mellitus with diabetic chronic kidney disease; E78.5 Hyperlipidemia, unspecified; E03.9 Hypothyroidism, unspecified; J45.909 Unspecified asthma, uncomplicated; Z99.2 Dependence on renal dialysis; Z90.49 Acquired absence of other specified parts of digestive tract; Z91.048 Other nonmedicinal substance allergy status
CPT/HCPCS: 20930; 20937; 22612; 82962; C1713 ×2; C1889; J1100; J1171; J2250; J2405; J2704; J3373; 36416